=== PATIENT | male | born 1945 | race Hispanic/Latino ===

== ENCOUNTER 2018-05-01 12:11 | Emergency (ER) | payer OTHER ==
[2018-05-01] MEDS ORDERED: FENTANYL CITR 100 MCG/2 ML ONE ×3 (13:14→19:00)
--- NOTE | 2018-05-01 17:41 | RAD REPORT ---
EXAM DESCRIPTION: RAD - Pelvis - 05/01/2018 3:58 pm CLINICAL HISTORY: Slip and fall, pelvic trauma COMPARISON: September 2014 TECHNIQUE: AP imaging of the pelvis was obtained. FINDINGS: No fracture or dislocation of either proximal femur. Patient has degenerative change at ea ch hip joint that is similar to the comparison. No periarticular mass or hematoma. No fracture of the bony pelvis seen. Sacral ala are too obscured by bowel and degenerative change for assessment. Prominent lower lumbar degenerative changes similar to the prior study. IMPRESSION: Degenerative changes are present as detailed. No acute findings identifiable.
--- NOTE | 2018-05-01 17:42 | RAD REPORT ---
EXAM DESCRIPTION: RAD - Knee Right 2 View - 05/01/2018 3:58 pm CLINICAL HISTORY: Slip and fall, knee pain COMPARISON: None. FINDINGS: No fracture, dislocation or periosteal reaction.No joint effusion seen. No joint space quintin rowing. Mild degenerative spurring along the superior margin of the patella. Arterial calcifications are present. IMPRESSION: No acute bone or joint finding. Clinical concerns for internal derangement or occult bony injury could be further assessed with MR imaging.
--- NOTE | 2018-05-01 17:43 | RAD REPORT ---
EXAM DESCRIPTION: RAD - Knee Left 2 View - 05/01/2018 3:58 pm CLINICAL HISTORY: None fall, knee pain COMPARISON: None. FINDINGS: Nondisplaced, nonangulated fracture is present at the proximal fibula shaft. No pathologic component. No fracture of the tibia identifiable. Femur is intact. Degenerative changes are present in the knee joint. No joint effusion is present. No foreign body or significant soft tissue finding. Clinical concerns for internal derangement or occult bony injury could be further assessed with MR im aging. IMPRESSION: Proximal fibula fracture with no distraction or angulation deformity. No acute knee joint finding.
--- NOTE | 2018-05-01 17:44 | RAD REPORT ---
EXAM DESCRIPTION: RAD - Tib Fib Left - 05/01/2018 3:58 pm CLINICAL HISTORY: Slip and fall, leg pain COMPARISON: None. FINDINGS: Spiral fracture of the distal tibia shaft is present. No angulation deformity. There is 3 mm of lateral displacement of the distal fracture fragment. Posterior displacement is 2 mm. More prox imally the tibia is intact. Shaft and distal fibula are intact. There is a nondisplaced, nonangulated fracture of the proximal fibula. No pathologic component. No suspicious soft tissue finding. No foreign body. IMPRESSION: Spiral fracture of the distal tibia shaft. There is 3 mm lateral and 2 mm posterior disp lacement of the distal fracture fragment.
--- NOTE | 2018-05-01 17:59 | RAD REPORT ---
EXAM DESCRIPTION: RAD - Ankle Left 3 View - 05/01/2018 3:58 pm CLINICAL HISTORY: Trip and fall, ankle pain COMPARISON: None. FINDINGS: Spiral fracture of the distal tibia shaft is present. Approximately 3 mm lateral displacem ent of the distal fracture fragment is seen. There is 5-10 degrees anterior angulation of the distal fracture fragment. The ankle mortise is preserved. No distal fibula fracture. No joint effusion seen. No joint space narrowing. Small plantar spur is present. IMPRESSION: Spiral fracture of the distal tibia as detailed.
--- NOTE | 2018-05-01 18:01 | RAD REPORT ---
EXAM DESCRIPTION: RAD - Foot Left 3 View - 05/01/2018 3:58 pm CLINICAL HISTORY: Trip and fall, leg pain COMPARISON: None. FINDINGS: Moderate-sized plantar spur is present. There is minimal spurring at the Achilles attachme nt. Acute fracture of the foot is not identifiable. Distal tibia findings are separately detailed. Th e distal phalanx and a portion of the middle phalanx second toe have been resected. There is prominen t been resection of the tuft third distal phalanx. No acute finding of the phalanges. No acute metata rsal finding. No air or foreign body in the soft tissues. IMPRESSION: No acute foot finding.
--- NOTE | 2018-05-01 19:14 | ER ---
Nurse's Notes [facility] Name: Phi Cunningham Jr Age: 73 yrs Sex: Male : 1945 Arrival Date: 05/01/2018 Time: 12:14 Bed 23 Private MD: Diagnosis: Displaced comminuted fracture of shaft of left tibia;Displaced fracture of lateral malleolus of left fibula Presentation: 05/01 12:14 Presenting complaint: EMS states: Patient was taking out his trash when he slipped and aj1 fell down a ramp. Patient reports bilateral knee pain and left ankle. Leg leg is externally rotated, patient denies hip pain. Patient denies hitting head, LOC. Limited ROM noted to left ankle. Transition of care: patient was not received from another setting of care. Onset of symptoms was May 01, 2018. Risk Assessment: Do you want to hurt yourself or someone else? Patient reports no desire to harm self or others. Initial Sepsis Screen: Does the patient meet any 2 criteria? No. Patient's initial sepsis screen is negative. Does the patient have a suspected source of infection? No. Patient's initial sepsis screen is negative. Care prior to arrival: None. 12:14 Method Of Arrival: EMS: [facility] aj1 12:14 Acuity: SAUL 3 aj1 Triage Assessment: 12:18 General: Appears in no apparent distress. uncomfortable, Behavior is calm, cooperative, aj1 appropriate for age. Pain: Complains of pain in left lateral ankle, left Achilles and left medial ankle Pain currently is 10 out of 10 on a pain scale. Neuro: Level of Consciousness is awake, alert, obeys commands, Speech is normal. Cardiovascular: Patient's skin is warm and dry. Respiratory: Airway is patent Respiratory effort is even, unlabored, Respiratory pattern is regular, symmetrical. GI: No signs and/or symptoms were reported involving the gastrointestinal system. : No signs and/or symptoms were reported regarding the genitourinary system. Derm: No signs and/or symptoms reported regarding the dermatologic system. Skin is pink, warm \T\ dry. normal. Musculoskeletal: Range of motion: limited in left ankle. Historical: - Allergies: 12:18 No Known Allergies; aj1 - Home Meds: 12:18 atorvastatin 20 mg Oral tab 1 tab once daily [Active]; clonidine HCl 0.1 mg Oral tab 1 aj1 tab 2 times per day [Active]; Durezol 0.05 % ophthalmic drop 1 drop twice a day [Active]; levothyroxine 75 mcg tab 1 tab once daily [Active]; metformin 500 mg Oral tab daily [Active]; Metoprolol Tartrate Oral [Active]; Plavix 75 mg Oral tab 1 tab once daily [Active]; - PMHx: 12:18 CVA; Diabetes - IDDM; Hypertension; aj1 - Immunization history:: Flu vaccine is not up to date. - Social history:: Smoking status: Patient/guardian denies using tobacco, Patient/guardian denies using alcohol, street drugs, The patient lives with family. - Ebola Screening: : Patient denies travel to an Ebola-affected area in the 21 days before illness onset. - Family history:: not pertinent. Screenin:21 Abuse screen: Denies threats or abuse. Denies injuries from another. Nutritional aj1 screening: No deficits noted. Tuberculosis screening: No symptoms or risk factors identified. 20:12 Fall Risk None identified. rv Assessment: 12:21 Reassessment: See triage assessment. General: Appears. aj1 13:15 Reassessment: Patient appears in no apparent distress at this time. No changes from aj1 previously documented assessment. Patient and/or family updated on plan of care and expected duration. Pain level reassessed. Patient is alert, oriented x 3, equal unlabored respirations, skin warm/dry/pink. 14:32 Reassessment: Patient and/or family updated on plan of care and expected duration. Pain aj1 level reassessed. General: Appears in no apparent distress. comfortable. Neuro: Level of Consciousness is awake, alert, obeys commands. Cardiovascular: Patient's skin is warm and dry. Respiratory: Airway is patent Respiratory effort is even, unlabored, Respiratory pattern is regular, symmetrical. 16:04 Reassessment: Patient returned to room from X-Ray, states that his pain is coming back. aj1 Notified Dr. Marie, order received. 16:30 Reassessment: Patient states that his pain has improved since medications were given. aj1 17:40 Reassessment: Patient and/or family updated on plan of care and expected duration. Pain aj1 level reassessed. General: Appears in no apparent distress. comfortable. Neuro: Level of Consciousness is awake, alert, obeys commands. Cardiovascular: Patient's skin is warm and dry. Cardiovascular: Patient's skin is warm and dry. Respiratory: Airway is patent Respiratory effort is even, unlabored, Respiratory pattern is regular, symmetrical. 18:51 Reassessment: Patient appears in no apparent distress at this time. No changes from aj1 previously documented assessment. Patient and/or family updated on plan of care and expected duration. Pain level reassessed. Patient is alert, oriented x 3, equal unlabored respirations, skin warm/dry/pink. Vital Signs: 12:18 BP 181 / 80; Pulse 86; Resp 18; Temp 98.2; Pulse Ox 100% on R/A; Weight 68.04 kg (R); aj1 Height 5 ft. 3 in. (160.02 cm) (R); Pain 10/10; 13:15 BP 160 / 74; Pulse 64; Resp 16; Pulse Ox 99% on R/A; aj1 14:32 BP 175 / 84; Pulse 65; Resp 18; Pulse Ox 96% on R/A; aj1 16:05 BP 192 / 94; Pulse 76; Resp 18; Pulse Ox 95% on R/A; aj1 17:40 BP 186 / 92; Pulse 73; Resp 18; Pulse Ox 97% on R/A; aj1 18:51 BP 172 / 83; Pulse 69; Resp 18; Pulse Ox 97% on R/A; aj1 12:18 Body Mass Index 26.57 (68.04 kg, 160.02 cm) aj1 ED Course: 12:14 Patient arrived in ED. aj1 12:16 Piter Grier MD is Attending Physician. rn 12:16 Triage completed. aj1 12:18 Arm band placed on. aj1 12:19 Vaishnavi Marie MD is Attending Physician. rn 12:21 Zoë Sandoval, LOUIS is Primary Nurse. aj1 12:21 Patient has correct armband on for positive identification. Bed in low position. Call [facility] light in reach. Side rails up X 1. 12:21 No provider procedures requiring assistance completed. aj1 13:14 Inserted saline lock: 20 gauge in right antecubital area, using aseptic technique. aj1 Blood collected. 15:57 X-ray completed. Patient tolerated procedure well. Patient moved back from radiology. [facility] 15:58 Ankle Left 3 View XRAY In Process Unspecified. EDMS 15:58 Foot Left 3 View XRAY In Process Unspecified. EDMS 15:58 Tib Fib Left XRAY In Process Unspecified. EDMS 15:58 Pelvis XRAY In Process Unspecified. EDMS 15:58 Knee Right 2 View XRAY In Process Unspecified. EDMS 15:58 Knee Left 2 View XRAY In Process Unspecified. EDMS 19:12 Godfrey Ortiz MD is Referral Physician. ma2 19:45 Josh wrap to left ankle Orthoglass splint: Posterior short lleg splint applied on left jp3 leg. stirrup splint applied on left leg. 20:12 IV discontinued, bleeding controlled, No redness/swelling at site. Pressure dressing rv applied. Administered Medications: 13:14 Drug: fentaNYL (PF) 50 mcg Route: IVP; Site: right antecubital; aj1 13:45 Follow up: Response: No adverse reaction; Pain is decreased aj1 16:04 Drug: fentaNYL (PF) 50 mcg Route: IVP; Site: right antecubital; aj1 17:00 Follow up: Response: No adverse reaction; Pain is decreased aj1 18:57 Drug: fentaNYL (PF) 50 mcg Route: IVP; Site: right antecubital; aj1 Outcome: 19:13 Discharge ordered by . ma2 20:11 Discharged to home ambulatory. rv 20:11 Condition: good 20:11 Discharge instructions given to patient, Instructed on discharge instructions, follow up and referral plans. medication usage, Demonstrated understanding of instructions, follow-up care, medications, Prescriptions given X 1. 20:12 Patient left the ED. rv Signatures: Dispatcher [employer] EDMN Zoë Sandoval RN RN aj1 Nicki Dorantes 1 Piter Grier MD MD rn Alzahri, Mohammad, MD MD ma2 Antonio Hansen RN RN Dakota Jj jp3 Corrections: (The following items were deleted from the chart) 15:35 15:34 Reassessment: Patient appears in no apparent distress at this time. No changes aj1 from previously documented assessment. Patient and/or family updated on plan of care and expected duration. Pain level reassessed. Patient is alert, oriented x 3, equal unlabored respirations, skin warm/dry/pink. aj1
--- NOTE | 2018-05-01 19:14 | EDPHYS ---
Physician Documentation [facility] Name: Phi Cunningham Jr Age: 73 yrs Sex: Male : 1945 Arrival Date: 05/01/2018 Time: 12:14 Bed 23 Private MD: ED Physician Vaishnavi Marie HPI: 05/01 12:57 This 73 yrs old Male presents to ER via EMS with complaints of Ankle Injury. ma2 12:57 The patient presents with a contusion, pain. The complaints affect the left ankle. ma2 Onset: The symptoms/episode began/occurred suddenly, 2 hour(s) ago. Context: walking, tripped. Associated signs and symptoms: Pertinent negatives: calf tenderness, fever, tingling, vomiting. Severity of symptoms: At their worst the symptoms were moderate, in the emergency department the symptoms are unchanged. The patient has not experienced similar symptoms in the past. Historical: - Allergies: 12:18 No Known Allergies; aj1 - Home Meds: 12:18 atorvastatin 20 mg Oral tab 1 tab once daily [Active]; clonidine HCl 0.1 mg Oral tab 1 aj1 tab 2 times per day [Active]; Durezol 0.05 % ophthalmic drop 1 drop twice a day [Active]; levothyroxine 75 mcg tab 1 tab once daily [Active]; metformin 500 mg Oral tab daily [Active]; Metoprolol Tartrate Oral [Active]; Plavix 75 mg Oral tab 1 tab once daily [Active]; - PMHx: 12:18 CVA; Diabetes - IDDM; Hypertension; aj1 - Immunization history:: Flu vaccine is not up to date. - Social history:: Smoking status: Patient/guardian denies using tobacco, Patient/guardian denies using alcohol, street drugs, The patient lives with family. - Ebola Screening: : Patient denies travel to an Ebola-affected area in the 21 days before illness onset. - Family history:: not pertinent. ROS: 12:57 Constitutional: Negative for fever, chills, and weight loss, Eyes: Negative for injury, ma2 pain, redness, and discharge, ENT: Negative for injury, pain, and discharge, Neck: Negative for injury, pain, and swelling, Cardiovascular: Negative for chest pain, palpitations, and edema, Respiratory: Negative for shortness of breath, cough, wheezing, and pleuritic chest pain. 12:57 MS/extremity: Positive for bilateral knee and right ankle pain , Negative for abrasion, laceration. 12:57 All other systems are negative. Exam: 12:57 Constitutional: This is a well developed, well nourished patient who is awake, alert, ma2 and in no acute distress. Head/Face: Normocephalic, atraumatic. Chest/axilla: Normal chest wall appearance and motion. Nontender with no deformity. No lesions are appreciated. Cardiovascular: Regular rate and rhythm with a normal S1 and S2. No gallops, murmurs, or rubs. Normal PMI, no JVD. No pulse deficits. Respiratory: Lungs have equal breath sounds bilaterally, clear to auscultation and percussion. No rales, rhonchi or wheezes noted. No increased work of breathing, no retractions or nasal flaring. 12:57 Musculoskeletal/extremity: left ankle deformity and tenderness, sensation intact w palpable dp and pt . Vital Signs: 12:18 BP 181 / 80; Pulse 86; Resp 18; Temp 98.2; Pulse Ox 100% on R/A; Weight 68.04 kg (R); aj1 Height 5 ft. 3 in. (160.02 cm) (R); Pain 10/10; 13:15 BP 160 / 74; Pulse 64; Resp 16; Pulse Ox 99% on R/A; aj1 14:32 BP 175 / 84; Pulse 65; Resp 18; Pulse Ox 96% on R/A; aj1 16:05 BP 192 / 94; Pulse 76; Resp 18; Pulse Ox 95% on R/A; aj1 17:40 BP 186 / 92; Pulse 73; Resp 18; Pulse Ox 97% on R/A; aj1 18:51 BP 172 / 83; Pulse 69; Resp 18; Pulse Ox 97% on R/A; aj1 12:18 Body Mass Index 26.57 (68.04 kg, 160.02 cm) aj MDM: 12:16 Patient medically screened. rn 12:57 Differential diagnosis: fracture, sprain, arthritis, gout, cellulitis. ma2 19:11 Data reviewed: vital signs, nurses notes, EMS record, lab test result(s), radiologic ma2 studies. Counseling: I had a detailed discussion with the patient and/or guardian regarding: the historical points, exam findings, and any diagnostic results supporting the discharge/admit diagnosis, the presence of at least one elevated blood pressure reading (>120/80) during this emergency department visit, the need for outpatient follow up. Medical screen evaluation completed. [facility] emergency medical condition absent. Response to treatment: the patient's symptoms have mildly improved after treatment, the patient's symptoms have markedly improved after treatment. ED course: discussed with dr. dobbins and he recommend splint and outpatient f/u. 05/01 12:53 Order name: Ankle Left 3 View XRAY; Complete Time: 18:26 ma2 05/01 12:53 Order name: Foot Left 3 View XRAY; Complete Time: 18:26 ma2 05/01 12:53 Order name: Tib Fib Left XRAY; Complete Time: 18:26 ma2 05/01 12:53 Order name: Pelvis XRAY; Complete Time: 18:26 ma2 05/01 12:59 Order name: Knee Right 2 View XRAY; Complete Time: 18:26 ma2 05/01 12:59 Order name: Knee Left 2 View XRAY; Complete Time: 18:26 ma2 05/01 18:34 Order name: Splint - Long Leg: Posterior w/ Stirrup; Complete Time: 19:57 ma2 Administered Medications: 13:14 Drug: fentaNYL (PF) 50 mcg Route: IVP; Site: right antecubital; aj1 13:45 Follow up: Response: No adverse reaction; Pain is decreased aj1 16:04 Drug: fentaNYL (PF) 50 mcg Route: IVP; Site: right antecubital; aj1 17:00 Follow up: Response: No adverse reaction; Pain is decreased aj1 18:57 Drug: fentaNYL (PF) 50 mcg Route: IVP; Site: right antecubital; aj1 Disposition: 05/01/18 19:13 Discharged to Home. Impression: Displaced comminuted fracture of shaft of left tibia, Displaced fracture of lateral malleolus of left fibula. - Condition is Stable. - Discharge Instructions: Tibial and Fibular Fracture, Adult. - Prescriptions for Tylenol- Codeine #3 300-30 mg Oral Tablet - take 2 tablet by ORAL route every 6 hours As needed; 6 tablet. - Medication Reconciliation Form, Thank You Letter, Antibiotic Education, Prescription Opioid Use form. - Follow up: Godfrey Dobbins MD; When: Tomorrow; Reason: Continuance of care. - Problem is new. - Symptoms are unchanged. - Notes: No weigth bearing on left leg Signatures: Dispatcher [employer] EDZoë Romano RN RN aj1 Piter Grier MD MD rn Alzahri, Mohammad, MD MD ma2 Antonio Hansen RN RN rv Corrections: (The following items were deleted from the chart) 20:12 19:13 05/01/2018 19:13 Discharged to Home. Impression: Displaced comminuted fracture of rv shaft of left tibia; Displaced fracture of lateral malleolus of left fibula. Condition is Stable. Forms are Medication Reconciliation Form, Thank You Letter, Antibiotic Education, Prescription Opioid Use. Follow up: Dr. Godfrey Dobbins; When: Tomorrow; Reason: Continuance of care. Problem is new. Symptoms are unchanged. ma2
[2018-05-01 21:13] VITALS: TEMP 98.2
[2018-05-01 21:17] VITALS: O2SAT 97
[2018-05-01 21:19] VITALS: BP 172/83
== END 2018-05-01 20:12 | disposition home or self-care (01) ==
LOC: ER 12:11
PROC: 2W3MX1Z Immobilization of Left Lower Extremity using Splint (ICD-10-PCS; principal; 2018-05-01)
DX: S82.252A Displaced comminuted fracture of shaft of left tibia, initial encounter for closed fracture (principal); S82.62XA Displaced fracture of lateral malleolus of left fibula, initial encounter for closed fracture; W01.0XXA Fall on same level from slipping, tripping and stumbling without subsequent striking against object, initial encounter; Y93.01 Activity, walking, marching and hiking; Y92.9 Unspecified place or not applicable; I10 Essential (primary) hypertension; E11.9 Type 2 diabetes mellitus without complications; Z79.01 Long term (current) use of anticoagulants
CPT/HCPCS: 29505; 72170; 73560 ×2; 73590; 73610; 73630; 96374; 99284; J3010 ×3

== ENCOUNTER 2019-09-26 17:54 | Emergency (ER) | payer OTHER ==
--- OUTSIDE RECORDS SUMMARY | 2019-09-26 17:55 | XMS REPORT ---
:1945 Author Organization [employer] Care Team Providers Name Role Phone Godfrey Ortiz Provider Role Unavailable Allergies No Known Allergies Problems No Known Problems Medications No Known Medications Results No Known Results Summary Purpose [employer] Submission
--- OUTSIDE RECORDS SUMMARY | 2019-09-26 17:56 | XMS REPORT ---
:1945 Author Organization [employer] Care Team Providers Name Role Phone Ortiz Godfrey Provider Role Unavailable Allergies, Adverse Reactions, Alerts Substance Reaction Event Type N.K.D.A. Info Not Available Non Drug Allergy Problems Problem Type Condition Code Onset Dates Condition Status Assessment Pain in left lower leg M79.662 Active Assessment Pain in left tibia M89.8X6 Active Assessment Closed displaced spiral fracture S82.242D Active of shaft of left tibia with routine healing Assessment Delayed union of closed fracture S82.202G Active of shaft of left tibia Medications Medication Code Code Instructions Start End Status Dosage System Date Date Lisinopril [facility] 71585269527 20 MG Oral Active TK 1 T PO D Metoprolol [facility] 85414085791 50 MG Oral Active TK 1 T PO Tartrate BID Clopidogrel ND 41257277683 75 MG Oral Active TK 1 T PO Bisulfate QD Metformin HCl ND 93562248823 500 MG Oral Active TK 1 T PO BID Furosemide ND 02527788200 40 MG Oral Active TK 1 T PO QAM Clonidine HCl ND 19083487086 0.1 MG Orally Active 1 tablet Once a day at bedtime Levothyroxine ND 70774693392 75 MCG Oral Active TK 1 T PO Sodium D Atorvastatin ND 78941717678 40 MG Oral Active TK 1 T PO Calcium QHS Acetaminophen-Cod ND 07111230435 300-30 MG Oral Active (Schedule eine #3 III Drug) TK 2 T PO Q 6 H PRF PAIN CONTROL Results No Known Results Summary Purpose [employer]Works Submission
--- OUTSIDE RECORDS SUMMARY | 2019-09-26 17:56 | XMS REPORT ---
:1945 Author Organization [employer] Care Team Providers Name Role Phone Godfrey Ortiz Provider Role Unavailable Allergies, Adverse Reactions, Alerts Substance Reaction Event Type N.K.D.A. Info Not Available Non Drug Allergy Problems Problem Type Condition Code Onset Dates Condition Status Assessment Pain in left lower leg M79.662 Active Assessment Pain in left tibia M89.8X6 Active Assessment Delayed union of closed fracture S82.202G Active of shaft of left tibia Medications Medication Code Code Instructions Start End Status Dosage System Date Date Levothyroxine [facility] 45972406898 75 MCG Oral Active TK 1 T PO Sodium D Acetaminophen-Cod [facility] 93724939197 300-30 MG Oral Active (Schedule eine #3 III Drug) TK 2 T PO Q 6 H PRF PAIN CONTROL Clopidogrel [facility] 61489038421 75 MG Oral Active TK 1 T PO Bisulfate QD Furosemide [facility] 04926003234 40 MG Oral Active TK 1 T PO QAM Lisinopril [facility] 61873242430 20 MG Oral Active TK 1 T PO D Metoprolol [facility] 44958980730 50 MG Oral Active TK 1 T PO Tartrate BID Atorvastatin [facility] 65215232888 40 MG Oral Active TK 1 T PO Calcium QHS Clonidine HCl [facility] 17675850568 0.1 MG Orally Active 1 tablet Once a day at bedtime Metformin HCl [facility] 61792212212 500 MG Oral Active TK 1 T PO BID Results Name Result Date Reference Range Unit Abnormality Flag Ultrasound : Artery Doppler Low Ext Bilat Summary Purpose eClinicalWorks Submission
[2019-09-26] MEDS ORDERED: ALBUTEROL 2.5 MG/3 ML NEB SOL ONE (19:07)
[2019-09-26] MEDS ORDERED: HYDROCODONE/CHLORPHEN 5 ML/OSYR ONE (19:07)
--- NOTE | 2019-09-26 19:15 | RAD REPORT ---
EXAM DESCRIPTION: Malorie Hester (2 Views)09/26/2019 6:58 pm CLINICAL HISTORY: cough COMPARISON: 2017 FINDINGS: The lungs appear clear of acute infiltrate. The heart is mildly enlarged. Postsurgical changes involve the chest. IMPRESSION: No acute abnormalities displayed
--- NOTE | 2019-09-26 20:03 | EDPHYS ---
Physician Documentation [facility] Name: Phi Cunningham Jr Age: 74 yrs Sex: Male : 1945 Arrival Date: 09/26/2019 Time: 17:56 Bed 27 Private MD: ED Physician Darrell Esqueda HPI: 09/26 20:00 This 74 yrs old Male presents to ER via Ambulatory with complaints of Cough, snw Congestion, Headache. 20:00 The patient or guardian reports cough, described as moderate, described as severe, with snw productive sputum, that is yellow. Onset: The symptoms/episode began/occurred suddenly, 4 day(s) ago, and became persistent. Severity of symptoms: At their worst the symptoms were moderate. Associated signs and symptoms: Pertinent negatives: chest pain, fever, sore throat. It is unknown whether or not the patient has had similar symptoms in the past. It is unknown whether or not the patient has recently seen a physician. SpO2 100% on RA, no confusion, FSBS 116mg/dl. Historical: - Allergies: 18:23 No Known Drug Allergies; tw2 - Home Meds: 18:23 atorvastatin 40 mg oral tab 1 tab once daily [Active]; metformin 500 mg Oral tab 2 tw2 times per day [Active]; metoprolol tartrate 50 mg oral tab 1 tab once daily [Active]; levothyroxine 75 mcg tab 1 tab once daily [Active]; Plavix 75 mg Oral tab 1 tab once daily [Active]; furosemide 40 mg Oral tab 1 tab once daily [Active]; lisinopril 20 mg Oral tab 1 tab once daily [Active]; clonidine HCl 0.1 mg Oral tab 1 tab 2 times per day [Active]; - PMHx: 18:23 CVA; Diabetes - IDDM; Hypertension; Hyperlipidemia; tw2 - PSHx: 18:23 cataracts; cardiac bypass; tw2 - Immunization history:: Adult Immunizations. - Coronavirus screen:: The patient has NOT traveled to [place] in the past 14 days. - Social history:: Smoking status: . - Ebola Screening: : Patient denies travel to an Ebola-affected area in the 21 days before illness onset. ROS: 19:21 Constitutional: Negative for fever, chills, and weight loss, Eyes: Negative for injury, snw pain, redness, and discharge. 19:21 Neck: Negative for injury, pain, and swelling, Cardiovascular: Negative for chest pain, palpitations, and edema. 19:21 Abdomen/GI: Negative for abdominal pain, nausea, vomiting, diarrhea, and constipation, Back: Negative for injury and pain, : Negative for injury, bleeding, discharge, and swelling, MS/Extremity: Negative for injury and deformity, Skin: Negative for injury, rash, and discoloration. 19:21 ENT: Positive for nasal discharge. 19:21 Respiratory: Positive for cough, with no reported sputum. 19:21 Neuro: Positive for dizziness. Exam: 19:19 Head/Face: Normocephalic, atraumatic. snw 19:19 Neck: Trachea midline, no thyromegaly or masses palpated, and no cervical lymphadenopathy. Supple, full range of motion without nuchal rigidity, or vertebral point tenderness. No Meningismus. Chest/axilla: Normal chest wall appearance and motion. Nontender with no deformity. No lesions are appreciated. Cardiovascular: Regular rate and rhythm with a normal S1 and S2. No gallops, murmurs, or rubs. Normal PMI, no JVD. No pulse deficits. 19:19 Abdomen/GI: Soft, non-tender, with normal bowel sounds. No distension or tympany. No guarding or rebound. No evidence of tenderness throughout. Back: No spinal tenderness. No costovertebral tenderness. Full range of motion. Skin: Warm, dry with normal turgor. Normal color with no rashes, no lesions, and no evidence of cellulitis. MS/ Extremity: Pulses equal, no cyanosis. Neurovascular intact. Full, normal range of motion. Neuro: Awake and alert, GCS 15, oriented to person, place, time, and situation. Cranial nerves II-XII grossly intact. Motor strength 5/5 in all extremities. Sensory grossly intact. Cerebellar exam normal. Normal gait. Psych: Awake, alert, with orientation to person, place and time. Behavior, mood, and affect are within normal limits. 19:19 Constitutional: The patient appears alert, awake, frail, uncomfortable. 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 19:19 ENT: Nose: Nasal mucosa: edematous, nasal drainage, that is moderate, and is seen coming from both nares, that is clear, Mouth: is normal, Posterior pharynx: is normal. 19:19 Respiratory: the patient does not display signs of respiratory distress, Respirations: shallow respirations, Breath sounds: + upper airway congestion. bronchitic cough. 19:59 Special observations: cough productive of yellow sputum. snw Vital Signs: 18:23 BP 108 / 63; Pulse 69; Resp 17; Temp 98.5(TE); Pulse Ox 100% on R/A; Weight 68.04 kg tw2 (R); Height 5 ft. 3 in. (160.02 cm); Pain 5/10; 19:30 BP 102 / 64; Pulse 70; Resp 18; Pulse Ox 98% on R/A; vc 20:00 BP 107 / 58; Pulse 73; Resp 18; Pulse Ox 98% on R/A; vc 18:23 Body Mass Index 26.57 (68.04 kg, 160.02 cm) tw2 MDM: 18:51 Patient medically screened. snw 20:04 Data reviewed: vital signs, nurses notes. Data interpreted: Pulse oximetry: on room air snw is 100 %. Interpretation: normal. Counseling: I had a detailed discussion with the patient and/or guardian regarding: the historical points, exam findings, and any diagnostic results supporting the discharge/admit diagnosis, lab results, radiology results, the need for outpatient follow up, to return to the emergency department if symptoms worsen or persist or if there are any questions or concerns that arise at home. Response to treatment: the patient's symptoms have mildly improved after treatment. Special discussion: Based on the history and exam findings, there is no indication for further emergent testing or inpatient evaluation. I discussed with the patient/guardian the need to see the primary care provider for further evaluation of the symptoms. 21:04 Response to treatment: the patient's symptoms have markedly improved after treatment, snw pt states he feels so much better he is going out to eat now. 09/26 18:38 Order name: Flu; Complete Time: 19:28 snw 09/26 18:59 Order name: Glucose, Ancillary Testing; Complete Time: 18:59 EDMS 09/26 18:34 Order name: Chest Pa And Lat (2 Views) XRAY; Complete Time: 19:22 snw 09/26 18:38 Order name: FSBS; Complete Time: 18:48 snw Administered Medications: 19:03 Drug: Albuterol 2.5 mg Route: Inhalation; vc 19:03 Drug: Tussionex Pennkinetic ER 5 ml Route: PO; vc 19:30 Follow up: Response: No adverse reaction; Marked relief of symptoms vc 20:25 Drug: Rocephin (cefTRIAXone) 1 grams Route: IM; Site: right ventrogluteal; vc 20:42 Follow up: Response: No adverse reaction vc 20:26 Drug: Zithromax 500 mg Route: PO; vc 20:41 Follow up: Response: No adverse reaction vc Disposition: 09/27 08:32 Co-signature as Attending Physician, Darrell Esqueda MD I agree with the assessment and kdr plan of care. Disposition: 09/26/19 20:02 Discharged to Home. Impression: Acute bronchitis, Pneumonia, unspecified organism. - Condition is Stable. - Discharge Instructions: Acute Bronchitis, Adult, Community-Acquired Pneumonia, Adult, Cough, Adult, Rehydration, Elderly. - Prescriptions for Tessalon Perles 100 mg Oral Capsule - take 1 capsule by ORAL route every 8 hours As needed; 15 capsule. Zithromax 500 mg Oral Tablet - take 1 tablet by ORAL route once daily for 5 days; 5 tablet. Albuterol Sulfate 90 mcg/actuation - inhale 1-2 puff by INHALATION route every 4-6 hours; 1 Inhaler. promethazine 25 mg Oral Tablet - take 1 tablet by ORAL route every 6 hours As needed; 20 tablet. - Medication Reconciliation Form, Thank You Letter, Antibiotic Education, Prescription Opioid Use form. - Follow up: Emergency Department; When: As needed; Reason: Worsening of condition. Follow up: Private Physician; When: 1 - 2 days; Reason: Recheck today's complaints, Continuance of care, Re-evaluation by your physician. Signatures: Dispatcher [employer] EDCT Darrell Esqueda MD MD kdr Therrien, Shelly, ROUND UP RING HAND-C ROUND UP RING HAND-Mami Madden RN RN tw2 April Anderson RN RN vc Corrections: (The following items were deleted from the chart) 09/26 20:42 20:02 09/26/2019 20:02 Discharged to Home. Impression: Acute bronchitis; Pneumonia, vc unspecified organism. Condition is Stable. Forms are Medication Reconciliation Form, Thank You Letter, Antibiotic Education, Prescription Opioid Use. Follow up: Emergency Department; When: As needed; Reason: Worsening of condition. Follow up: Private Physician; When: 1 - 2 days; Reason: Recheck today's complaints, Continuance of care, Re-evaluation by your physician. snw
--- NOTE | 2019-09-26 20:03 | ER ---
Nurse's Notes [facility] Name: Phi Cunningham Jr Age: 74 yrs Sex: Male : 1945 Arrival Date: 09/26/2019 Time: 17:56 Bed 27 Private MD: Diagnosis: Acute bronchitis;Pneumonia, unspecified organism Presentation: 09/26 18:16 Presenting complaint: Patient states: i have been sick for 4 days back, well since last tw2 week, i thought i would get over it, i am coughing and congestion but nothing is coming up, when i cough a lot the back of my head hurts and i get a headache, my shoulders hurt and i feel nilesh dizzy at times when i cough. Transition of care: patient was not received from another setting of care. Onset of symptoms was September 26, 2019. Risk Assessment: Do you want to hurt yourself or someone else? Patient reports no desire to harm self or others. Initial Sepsis Screen: Does the patient meet any 2 criteria? No. Patient's initial sepsis screen is negative. Does the patient have a suspected source of infection? No. Patient's initial sepsis screen is negative. Care prior to arrival: None. 18:16 Method Of Arrival: Ambulatory tw2 18:16 Acuity: SAUL 3 tw2 Triage Assessment: 18:18 General: Appears in no apparent distress. slender, Behavior is calm, cooperative, tw2 appropriate for age. Pain: Complains of pain in back. EENT: Reports nasal congestion nasal discharge. Respiratory: Reports cough that is non-productive, hacking, persistent. Historical: - Allergies: 18:23 No Known Drug Allergies; tw2 - Home Meds: 18:23 atorvastatin 40 mg oral tab 1 tab once daily [Active]; metformin 500 mg Oral tab 2 tw2 times per day [Active]; metoprolol tartrate 50 mg oral tab 1 tab once daily [Active]; levothyroxine 75 mcg tab 1 tab once daily [Active]; Plavix 75 mg Oral tab 1 tab once daily [Active]; furosemide 40 mg Oral tab 1 tab once daily [Active]; lisinopril 20 mg Oral tab 1 tab once daily [Active]; clonidine HCl 0.1 mg Oral tab 1 tab 2 times per day [Active]; - PMHx: 18:23 CVA; Diabetes - IDDM; Hypertension; Hyperlipidemia; tw2 - PSHx: 18:23 cataracts; cardiac bypass; tw2 - Immunization history:: Adult Immunizations. - Coronavirus screen:: The patient has NOT traveled to [place] in the past 14 days. - Social history:: Smoking status: . - Ebola Screening: : Patient denies travel to an Ebola-affected area in the 21 days before illness onset. Screenin:30 Abuse screen: Denies threats or abuse. Nutritional screening: No deficits noted. vc Tuberculosis screening: No symptoms or risk factors identified. Fall Risk None identified. Assessment: 18:30 General: Appears in no apparent distress. uncomfortable, ill, Behavior is calm, vc cooperative, appropriate for age. Pain: Complains of pain in back. Neuro: Level of Consciousness is awake, alert, obeys commands. Cardiovascular: Patient's skin is warm and dry. Respiratory: Reports cough that is non-productive, pain with cough Airway is patent Respiratory effort is even, unlabored, Respiratory pattern is regular, symmetrical. GI: No signs and/or symptoms were reported involving the gastrointestinal system. : No signs and/or symptoms were reported regarding the genitourinary system. EENT: Eyes blind in left eye. Derm: Skin temperature is warm. Musculoskeletal: Circulation, motion, and sensation intact. Range of motion: intact in all extremities. 19:30 Reassessment: Patient and/or family updated on plan of care and expected duration. Pain vc level reassessed. 20:12 Reassessment: Patient and/or family updated on plan of care and expected duration. Pain vc level reassessed. Patient is alert, oriented x 3, equal unlabored respirations, skin warm/dry/pink. Patient states feeling better. Patient states symptoms have improved. Vital Signs: 18:23 BP 108 / 63; Pulse 69; Resp 17; Temp 98.5(TE); Pulse Ox 100% on R/A; Weight 68.04 kg tw2 (R); Height 5 ft. 3 in. (160.02 cm); Pain 5/10; 19:30 BP 102 / 64; Pulse 70; Resp 18; Pulse Ox 98% on R/A; vc 20:00 BP 107 / 58; Pulse 73; Resp 18; Pulse Ox 98% on R/A; vc 18:23 Body Mass Index 26.57 (68.04 kg, 160.02 cm) tw2 ED Course: 17:56 Patient arrived in ED. as 18:18 Triage completed. tw2 18:18 Arm band placed on. tw2 18:30 Patient has correct armband on for positive identification. Bed in low position. Call vc light in reach. Side rails up X 1. 18:33 Kassy Mcarthur FNP-C is [facility]. snw 18:33 Darrell Esqueda MD is Attending Physician. snw 18:48 Flu Sent. lt1 18:58 April Anderson, RN is Primary Nurse. vc 19:13 Chest Pa And Lat (2 Views) XRAY In Process Unspecified. EDMS 20:12 No provider procedures requiring assistance completed. Patient did not have IV access vc during this emergency room visit. Administered Medications: 19:03 Drug: Albuterol 2.5 mg Route: Inhalation; vc 19:03 Drug: Tussionex Pennkinetic ER 5 ml Route: PO; vc 19:30 Follow up: Response: No adverse reaction; Marked relief of symptoms vc 20:25 Drug: Rocephin (cefTRIAXone) 1 grams Route: IM; Site: right ventrogluteal; vc 20:42 Follow up: Response: No adverse reaction vc 20:26 Drug: Zithromax 500 mg Route: PO; vc 20:41 Follow up: Response: No adverse reaction vc Outcome: 20:02 Discharge ordered by . snw 20:40 Discharged to home ambulatory with walker and friend vc 20:40 Condition: improved 20:40 Discharge instructions given to patient, Instructed on discharge instructions, follow up and referral plans. medication usage, Demonstrated understanding of instructions, follow-up care, medications, Prescriptions given X 4. 20:42 Patient left the ED. vc Signatures: Dispatcher [employer] EDMS Kassy Mcarthur FNP-C FAMILY NURSE-Tanna Abreu Tara, RN RN tw2 Pastor Jennifer lt1 April Anderson, LOUIS RN vc
[2019-09-26] MEDS ORDERED: LIDOCAINE 1% MPF 5 ML VIAL ONE (20:22)
[2019-09-26] MEDS ORDERED: AZITHROMYCIN 250 MG TAB ONE (20:22)
[2019-09-26] MEDS ORDERED: CEFTRIAXONE 1000 MG/VIAL ONE (20:23)
[2019-09-26 20:46] VITALS: TEMP 98.5
[2019-09-26 20:48] VITALS: O2SAT 98
[2019-09-26 20:49] VITALS: BP 107/58
== END 2019-09-26 20:42 | disposition home or self-care (01) ==
LOC: ER 17:54
DX: J18.9 Pneumonia, unspecified organism (principal); J20.9 Acute bronchitis, unspecified; I10 Essential (primary) hypertension; E11.9 Type 2 diabetes mellitus without complications; E78.5 Hyperlipidemia, unspecified; Z79.01 Long term (current) use of anticoagulants
CPT/HCPCS: 71046; 82947; 87804; 96372; 99284

== ENCOUNTER 2021-11-02 14:55 | Emergency (ER) | payer OTHER ==
--- OUTSIDE RECORDS SUMMARY | 2021-11-02 14:58 | XMS REPORT | Continuity of Care Document ---
:1945 Author Organization [facility] t Address [address] [place] [address] Care Team Providers Name Role Phone Unavailable Unavailable Unavailable Problems This patient has no known problems. Allergies, Adverse Reactions, Alerts This patient has no known allergies or adverse reactions. Medications Ordered Filled Start Stop Current Ordering Indication Dosage Frequency Signature Comments Components Source Medication Medication Date Date Medication? Clinician (SIG) Name Name Levothyroxi Levothyroxi Yes Godfrey TK [address] [facility] ne Sodium ne Sodium [facility] D [facility] Clonidine Clonidine Yes Godfrey [address] [facility] HCl HCl [facility] at bedtime [facility] Metoprolol Metoprolol Yes Godfrey TK [address] [facility] Tartrate Tartrate [facility] BID [facility] Metformin Metformin Yes Godfrey TK [address] [facility] HCl HCl [facility] BID [facility] Lisinopril Lisinopril Yes Godfrey TK [address] [facility]iz D [facility] Atorvastati Atorvastati Yes Godfrey TK [address] [facility] n Calcium n Calcium [facility] QHS [facility] Clopidogrel Clopidogrel Yes Godfrey TK [address] [facility] Bisulfate Bisulfate [facility] QD [facility] Acetaminoph Acetaminoph Yes Godfrey (Schedule [facility] en-Codeine en-Codeine [facility] III Drug) Kaveh - #3 #3 TK 2 T PO [facility] 6 [facility] Furosemide Furosemide Yes Godfrey SMITH [address] [facility] QAM [facility] Procedures This patient has no known procedures. Encounters Start End Encounter Admission Attending Care Care Encounter Source Date/Time Date/Time Type Type Clinicians Facility Department ID 2019-06-22 2019-06-22 Outpatient [facility] [id number] [facility] 11:04[facility] 11[facility]04[facility] 2018-11-22 2018-11-22 [facility] [id number] [facility] 11[facility]13:00 11:13:00 [facility] 2018-11-20 2018-11-20 [facility] [id number] [facility] 10:30:00 10:30:00 [facility] 2018-10-02 2018-10-02 [facility] [id number] [facility] 10:20:00 10:20:00 [facility] 2018-10-01 2018-10-01 [facility] [id number] [facility] 20:50:00 20:50:00 [facility] 2018-09-26 2018-09-26 [facility] [id number] [facility] 10:00:00 10:00:00 [facility] 2018-09-24 2018-09-24 [facility] [id number] [facility] 21:26:00 21:26:00 [facility] 2018-09-18 2018-09-18 [facility] [id number] [facility] 09:48:00 09:48:00 [facility] 2018-09-11 2018-09-11 [facility] [id number] [facility] 15:18:00 15:18:00 [facility] 2018-09-11 2018-09-11 Outpatient [facility] [id number] [facility] 11:00:00 11:00:00 [facility] 2018-07-31 2018-07-31 Outpatient [facility] [id number] [facility] 11:00:00 11:00:00 [facility] 2018-07-17 2018-07-17 Outpatient [facility] [id number] [facility] 14:09:00 14:09:00 [facility] 2018-05-11 2018-05-11 Outpatient [facility] [id number] [facility] 17:06:00 17:06:00 [facility] 2018-05-11 2018-05-11 Outpatient [facility] [id number] [facility] 13[facility]30:00 13:30:00 [facility] Results This patient has no known results.
--- NOTE | 2021-11-02 16:21 | RAD REPORT ---
EXAM DESCRIPTION: CT - Head C Spine Cap Wo Con - 11/02/2021 3:57 pm TECHNIQUE: Computed axial tomography of the head and cervical spine was obtained. Coronal and sagitt al reconstruction was performed Computed axial tomography of the chest, abdomen and pelvis was obtained. Contrast was not requested. All CT scans are performed using dose optimization technique as appropriate and may include automated exposure control or mA/KV adjustment according to patient size. CLINICAL HISTORY: Head and neck injury with chest and abdominal pain status post fall COMPARISON: CT 2014 FINDINGS: An intracranial bleed is not seen. The ventricles are normal in caliber. An extra-axial fluid collection is not noted. . Fluid within the sinuses/mastoids is not seen. A cervical fracture is not seen. No dislocation is noted. The evaluation of mediastinum, dori, vessels, solid organs and bowel are limited secondary to the lac k of contrast administration. A mediastinal hematoma is not noted. A pleural effusion is not seen. A lung contusion is not present. Anterior subluxation right head The liver,spleen, pancreas, adrenals,kidneys and bladder do not demonstrate intrahepatic injury Spondylosis cervical and lumbar spine. . IMPRESSION: 1. No acute intracranial abnormality is seen. 2. A cervical fracture is not visualized. If the patient continues have symptoms to suggest intracran ial/spinal cord pathology MRI be recommended 3. No traumatic abnormality involving the abdomen/pelvis 4. Anterior subluxation right humeral head
[2021-11-02] MEDS ORDERED: ACETAMINOPHEN 500 MG TAB ONE (17:17)
--- NOTE | 2021-11-02 17:55 | ER ---
Nurse's Notes [facility] Name: Phi Cunningham Jr Age: 76 yrs Sex: Male : 1945 Arrival Date: 11/02/2021 Time: 14:59 Bed 28 Private MD: Diagnosis: Fall on same level, unspecified;Laceration without foreign body of scalp Presentation: 11/02 15:03 Chief complaint: EMS states: pt fell at home, hit head on table, small lac to top left iw head, states he is on blood thinners but does not know which one, denies LOC, is A\T\OX4. Care prior to arrival: Bleeding of injury controlled. Mechanism of Injury: Fall from standing position. Trauma event details: Injury occurred in the [facility], Injury occurred: at home. 15:03 Acuity: SAUL 3 iw 15:03 Method Of Arrival: EMS: [facility] iw 15:06 Coronavirus screen: At this time, the client does not indicate any symptoms associated iw with coronavirus-19. Ebola Screen: Patient negative for fever greater than or equal to 101.5 degrees Fahrenheit, and additional compatible Ebola Virus Disease symptoms Patient denies exposure to infectious person. Patient denies travel to an Ebola-affected area in the 21 days before illness onset. No symptoms or risks identified at this time. Initial Sepsis Screen: Does the patient meet any 2 criteria? No. Patient's initial sepsis screen is negative. Does the patient have a suspected source of infection? No. Patient's initial sepsis screen is negative. Risk Assessment: Do you want to hurt yourself or someone else?. Onset of symptoms was November 02, 2021. Trauma Activation: Alert Physician: ED Physician; Name: ; Notified At: ; Arrived At: Physician: General Surgeon; Name: ; Notified At: ; Arrived At: Physician: Radiology; Name: ; Notified At: ; Arrived At: Physician: Respiratory; Name: ; Notified At: ; Arrived At: Physician: Lab; Name: ; Notified At: ; Arrived At: Historical: - Home Meds: 15:05 atorvastatin 40 mg Oral tab 1 tab once daily [Active]; clonidine HCl 0.1 mg Oral tab 1 iw tab 2 times per day [Active]; furosemide 40 mg Oral tab 1 tab once daily [Active]; levothyroxine 75 mcg tab 1 tab once daily [Active]; lisinopril 20 mg Oral tab 1 tab once daily [Active]; metformin 500 mg Oral tab 2 times per day [Active]; metoprolol tartrate 50 mg Oral tab 1 tab once daily [Active]; Plavix 75 mg Oral tab 1 tab once daily [Active]; - PMHx: 15:05 CVA; Diabetes - IDDM; Hyperlipidemia; Hypertension; iw - Immunization history:: Adult Immunizations unknown. - Social history:: Smoking status: unknown. Screenin:06 Abuse screen: Denies threats or abuse. Denies injuries from another. Tuberculosis iw screening: No symptoms or risk factors identified. 17:53 Nutritional screening: No deficits noted. Fall Risk Fall in past 12 months (25 points). ab2 Fall Risk Secondary diagnosis (15 points) IV access (20 points). Ambulatory Aid- None/Bed Rest/Nurse Assist (0 pts). Gait- Weak (10 pts.). Mental Status- Oriented to own ability (0 pts). Total Chacko Fall Scale indicates High Risk Score (45 or more points). Fall prevention measures have been instituted. Placed Close to Nursing Station Frequent Obs/Assessments Occuring As available patient and family educated on Fall Prevention Program and Strategies. Primary Survey: 17:51 NO uncontrolled hemorrhage observed. Breathing/Chest: Respiratory pattern: regular, ab2 Respiratory effort: spontaneous, unlabored, Breath sounds: clear. Circulation: Cardiac rhythm: sinus rhythm. Disability Alert. Exposure/Environment: There is no evidence of uncontrolled external bleeding. 17:53 Reassessment Airway Airway Patent Breathing/Chest Respiratory pattern Regular ab2 Respiratory effort Spontaneous Unlabored Breath sounds Clear Chest inspection Symmetrical. Assessment: 15:04 General: Appears in no apparent distress. Behavior is calm, cooperative. iw 17:50 General: Appears in no apparent distress. Behavior is calm, cooperative. Pain: ab2 Complains of pain in left frontal area Pain currently is 6 out of 10 on a pain scale. Neuro: Level of Consciousness is awake, alert, obeys commands, Oriented to person, place, situation, Appropriate for age Study Coordinator are equal bilaterally Moves all extremities. Speech is normal. Cardiovascular: No deficits noted. Denies chest pain, shortness of breath, Heart tones S1 S2 present Patient's skin is warm and dry. Respiratory: No deficits noted. Airway is patent Respiratory effort is even, unlabored, Respiratory pattern is regular, symmetrical, Breath sounds are clear. GI: No deficits noted. No signs and/or symptoms were reported involving the gastrointestinal system. Abdomen is round non-distended. : No deficits noted. No signs and/or symptoms were reported regarding the genitourinary system. EENT: No deficits noted. No signs and/or symptoms were reported regarding the EENT system. Derm: Wound noted left frontal area. Musculoskeletal: No deficits noted. Vital Signs: 15:18 BP 115 / 54; Pulse 73; Resp 16; Temp 98.4(O); Pulse Ox 99% on R/A; Weight 70.31 kg; mh5 Height 5 ft. 6 in. (167.64 cm); Pain 5/10; 17:57 BP 156 / 82; Pulse 68; Resp 17; Pulse Ox 99% on R/A; ab2 15:18 Body Mass Index 25.02 (70.31 kg, 167.64 cm) mh5 Rosalva Coma Score: 17:52 Eye Response: spontaneous(4). Verbal Response: oriented(5). Motor Response: obeys ab2 commands(6). Total: 15. Trauma Score (Adult): 17:52 Eye Response: spontaneous(1); Verbal Response: oriented(1); Motor Response: obeys ab2 commands(2); Systolic BP: > 89 mm Hg(4); Respiratory Rate: 10 to 29 per min(4); [place] Score: 15; Trauma Score: 12 ED Course: 14:59 Patient arrived in ED. ds1 14:59 Tanja Nicole, LOUIS is Primary Nurse. iw 15:01 Tomas Peterson PA is PHCP. cp 15:01 Piter Grier MD is Attending Physician. cp 15:04 Triage completed. iw 15:06 Arm band placed on. iw 15:17 Patient has correct armband on for positive identification. Bed in low position. Call mh5 light in reach. Side rails up X2. Warm blanket given. Pillow given. business proposal rep on. Pulse ox on. NIBP on. 15:59 CT Traumagram (Head C Spine CAP wo con) In Process Unspecified. EDMS 17:52 No provider procedures requiring assistance completed. ab2 17:53 Patient maintains SpO2 saturation greater than 95% on room air. ab2 17:53 Thermoregulation: warm blanket given to patient. ab2 17:58 XRAY Shoulder RIGHT 2 view In Process Unspecified. EDMS 18:14 Patient did not have IV access during this emergency room visit. ab2 Administered Medications: 17:19 Drug: Tylenol 1000 mg Route: PO; ab2 17:30 Follow up: Response: No adverse reaction iw Outcome: 17:54 Discharge ordered by MD. cp 18:14 Discharged to home via wheelchair, with family. ab2 18:14 Condition: good 18:14 Discharge instructions given to patient, Instructed on discharge instructions, follow up and referral plans. wound care, Demonstrated understanding of instructions, follow-up care, wound care. 18:14 Patient left the ED. ab2 Signatures: Dispatcher [employer] EDOR Svitlana Kline ds1 Tanja Nicole RN RN Tomas Liu PA PA cp Martinez, [facility] Christophe Burris ab2
--- NOTE | 2021-11-02 17:55 | EDPHYS ---
Physician Documentation [facility] Name: Phi Cunningham Jr Age: 76 yrs Sex: Male : 1945 Arrival Date: 11/02/2021 Time: 14:59 Bed 28 Private MD: ED Physician Piter Grier HPI: 11/02 15:35 This 76 yrs old Male presents to ER via EMS with complaints of Fall Injury, cp Head Injury-Adult. 15:35 Details of fall: The patient fell from an upright position, while walking. Onset: The cp symptoms/episode began/occurred just prior to arrival. Associated injuries: The patient sustained injury to the head, laceration, of the left frontal area. Severity of symptoms: in the emergency department the symptoms have improved, mildly. 15:35 Patient reports losing balance and fall causing him to strike head on furniture. No LOC.cp Historical: - Home Meds: 15:05 atorvastatin 40 mg Oral tab 1 tab once daily [Active]; clonidine HCl 0.1 mg Oral tab 1 iw tab 2 times per day [Active]; furosemide 40 mg Oral tab 1 tab once daily [Active]; levothyroxine 75 mcg tab 1 tab once daily [Active]; lisinopril 20 mg Oral tab 1 tab once daily [Active]; metformin 500 mg Oral tab 2 times per day [Active]; metoprolol tartrate 50 mg Oral tab 1 tab once daily [Active]; Plavix 75 mg Oral tab 1 tab once daily [Active]; - PMHx: 15:05 CVA; Diabetes - IDDM; Hyperlipidemia; Hypertension; iw - Immunization history:: Adult Immunizations unknown. - Social history:: Smoking status: unknown. ROS: 15:40 Constitutional: Negative for body aches, chills, fever, poor PO intake. cp 15:40 Eyes: Negative for injury, pain, redness, and discharge. cp 15:40 Neck: Positive for pain with movement, pain at rest. 15:40 Cardiovascular: Negative for chest pain, palpitations. 15:40 Respiratory: Negative for cough, shortness of breath, wheezing. 15:40 Abdomen/GI: Negative for abdominal pain, nausea, vomiting, and diarrhea. 15:40 Neuro: Positive for headache, Negative for altered mental status, loss of consciousness, syncope, weakness. 15:40 All other systems are negative. Exam: 15:45 Constitutional: The patient appears in no acute distress, alert, awake, cp non-diaphoretic, non-toxic, well developed, well nourished. 15:45 Head/face: Noted is a laceration(s), that is deep, that is linear, of the left frontal cp area. 15:45 Eyes: Periorbital structures: appear normal, Extraocular movements: intact throughout, Conjunctiva: normal, no exudate, no injection, Sclera: no appreciated abnormality, Lids and lashes: appear normal, bilaterally. 15:45 ENT: External ear(s): are unremarkable, Nose: is normal, Mouth: Lips: moist, Oral mucosa: moist, Posterior pharynx: Airway: no evidence of obstruction, patent. 15:45 Neck: ROM/movement: pain, is not appreciated, limited range of motion, is not appreciated. 15:45 Chest/axilla: Inspection: normal, Palpation: is normal, no crepitus, no tenderness. 15:45 Cardiovascular: Rate: normal, Rhythm: regular, Edema: is not appreciated, JVD: is not appreciated. 15:45 Respiratory: the patient does not display signs of respiratory distress, Respirations: normal, no use of accessory muscles, no retractions, labored breathing, is not present, Breath sounds: are clear throughout, no decreased breath sounds, no stridor, no wheezing. 15:45 Abdomen/GI: Inspection: abdomen appears normal, Palpation: abdomen is soft and non-tender, in all quadrants. 15:45 Neuro: Orientation: to person, place \T\ time. Mentation: is normal, Motor: moves all fours, strength is normal, Sensation: no obvious gross deficits. Vital Signs: 15:18 BP 115 / 54; Pulse 73; Resp 16; Temp 98.4(O); Pulse Ox 99% on R/A; Weight 70.31 kg; mh5 Height 5 ft. 6 in. (167.64 cm); Pain 5/10; 17:57 BP 156 / 82; Pulse 68; Resp 17; Pulse Ox 99% on R/A; ab2 15:18 Body Mass Index 25.02 (70.31 kg, 167.64 cm) mh5 Rosalva Coma Score: 17:52 Eye Response: spontaneous(4). Verbal Response: oriented(5). Motor Response: obeys ab2 commands(6). Total: 15. Trauma Score (Adult): 17:52 Eye Response: spontaneous(1); Verbal Response: oriented(1); Motor Response: obeys ab2 commands(2); Systolic BP: > 89 mm Hg(4); Respiratory Rate: 10 to 29 per min(4); Rosalva Score: 15; Trauma Score: 12 Laceration: 17:49 Wound Repair of 2cm ( 0.8in ) subcutaneous laceration to left frontal area. Linear cp shaped.. Distal neuro/vascular/tendon intact. Wound prep: Simple cleansing by me. Skin closed with 3 Revere using staple gun. Dressed with Bacitracin. Patient tolerated well. MDM: 15:29 Patient medically screened. cp 16:00 Differential diagnosis: abrasion, closed head injury, contusion, fracture, laceration, cp multiple trauma. 17:50 ED course: Reexamination of right shoulder: Patient with full, active ROM. cp 17:51 Data reviewed: vital signs, nurses notes, radiologic studies, CT scan, plain films. cp Test interpretation: by ED physician or midlevel provider: xrays of right shoulder negative for dislocation and/or fracture. Counseling: I had a detailed discussion with the patient and/or guardian regarding: the historical points, exam findings, and any diagnostic results supporting the discharge/admit diagnosis, radiology results, the need for outpatient follow up, a family practitioner, to return to the emergency department if symptoms worsen or persist or if there are any questions or concerns that arise at home. Response to treatment: the patient's symptoms have markedly improved after treatment, and as a result, I will discharge patient. Special discussion: Based on the patient's history, exam and DX evaluation, there is no indication for emergent intervention or inpatient TX. It is understood by the patient/guardian that if the SXs persist or worsen they need to return immediately for re-evaluation. 11/02 15:29 Order name: CT Traumagram (Head C Spine CAP wo con); Complete Time: 16:35 cp 11/02 16:43 Order name: XRAY Shoulder RIGHT 2 view; Complete Time: 05:58 cp 11/02 16:36 Order name: Wound Care: please clean head wound; Complete Time: 17:57 cp Administered Medications: 17:19 Drug: Tylenol 1000 mg Route: PO; ab2 17:30 Follow up: Response: No adverse reaction iw Disposition Summary: 11/02/21 17:54 Discharge Ordered Location: Home cp Problem: new cp Symptoms: have improved cp Condition: Stable cp Diagnosis - Fall on same level, unspecified cp - Laceration without foreign body of scalp cp Followup: cp - With: Private Physician - When: 1 week - Reason: Staple/Suture removal Discharge Instructions: - Discharge Summary Sheet cp - Head Injury, Adult cp - Fall Prevention in the Home, Adult cp - Laceration Care, Adult cp - Sutures, Revere, or Adhesive Wound Closure cp Forms: - Medication Reconciliation Form cp - Thank You Letter cp - Antibiotic Education cp - Prescription Opioid Use cp Signatures: Dispatcher [employer] Tanja Kilgore RN RN iw Tomas Peterson PA PA cp Bleininger, Alexis ab2
--- NOTE | 2021-11-02 18:13 | RAD REPORT ---
EXAM DESCRIPTION: RAD - Shoulder Right 2 View - 11/02/2021 5:57 pm CLINICAL HISTORY: Right shoulder pain FINDINGS: No fracture is visualized. On a CT scan of the same date there was anterior subluxation of the humeral head. It is equivocally v isualized on this exam.
[2021-11-02 18:47] VITALS: TEMP 98.4; O2SAT 99
[2021-11-02 18:48] VITALS: BP 156/82
== END 2021-11-02 18:14 | disposition home or self-care (01) ==
LOC: ER 14:55
PROC: 0JQ00ZZ Repair Scalp Subcutaneous Tissue and Fascia, Open Approach (ICD-10-PCS; principal; 2021-11-02)
DX: S01.01XA Laceration without foreign body of scalp, initial encounter (principal); W18.30XA Fall on same level, unspecified, initial encounter; Y93.01 Activity, walking, marching and hiking; I10 Essential (primary) hypertension; E78.5 Hyperlipidemia, unspecified; E11.9 Type 2 diabetes mellitus without complications; Z79.01 Long term (current) use of anticoagulants; Z86.73 Personal history of transient ischemic attack (TIA), and cerebral infarction without residual deficits
CPT/HCPCS: 70450; 71250; 72125; 99285

== ENCOUNTER 2022-01-26 10:05 | Inpatient (IN) | payer OTHER ==
--- OUTSIDE RECORDS SUMMARY | 2022-01-26 10:07 | XMS REPORT | Continuity of Care Document ---
:1945 Author Organization [facility] t Address [address] [place] [address] Care Team Providers Name Role Phone Unavailable Unavailable Unavailable Problems This patient has no known problems. Allergies, Adverse Reactions, Alerts This patient has no known allergies or adverse reactions. Medications Ordered Filled Start Stop Current Ordering Indication Dosage Frequency Signature Comments Components Source Medication Medication Date Date Medication? Clinician (SIG) Name Name Levothyroxi Levothyroxi Yes Godfrey TK 1 T PO Common ne Sodium ne Sodium Ortiz D [facility] Clonidine Clonidine Yes Godfrey 1 tablet Common HCl HCl Ortiz at bedtime [facility] Metoprolol Metoprolol Yes Godfrey TK 1 T PO Common Tartrate Tartrate Ortiz BID [facility] Metformin Metformin Yes Godfrey TK 1 T PO Common HCl HCl Ortiz BID [facility] Lisinopril Lisinopril Yes Godfrey TK 1 T PO Common Ortiz D [facility] Atorvastati Atorvastati Yes Godfrey TK 1 T PO Common n Calcium n Calcium Ortiz QHS [facility] Clopidogrel Clopidogrel Yes Godfrey TK 1 T PO Common Bisulfate Bisulfate Ortiz QD [facility] Acetaminoph Acetaminoph Yes Godfrey (Schedule Common en-Codeine en-Codeine Ortiz III Drug) Dilan #3 #3 TK 2 T PO - [facility] Q 6 H PRF [facility] Furosemide Furosemide Yes Godfrey SMITH 1 T PO Common Ortiz QAM [facility] Procedures This patient has no known procedures. Encounters Start End Encounter Admission Attending Care Care Encounter Source Date/Time Date/Time Type Type Clinicians Facility Department ID 2019-06-22 2019-06-22 [id number] Common 11:04:00 11:04:00 [facility] 2018-11-22 2018-11-22 [facility] [id number] Common 11:13:00 11:13:00 t [facility] 2018-11-20 2018-11-20 [facility] [id number] Common 10:30:00 10:30:00 t [facility] 2018-10-02 2018-10-02 [facility] [id number] Common 10:20:00 10:20:00 t [facility] 2018-10-01 2018-10-01 [facility] [id number] Common 20:50:00 20:50:00 t [facility] 2018-09-26 2018-09-26 [facility] [id number] Common 10:00:00 10:00:00 t [facility] 2018-09-24 2018-09-24 [facility] [id number] Common 21:26:00 21:26:00 t [facility] 2018-09-18 2018-09-18 [facility] [id number] Common 09:48:00 09:48:00 t [facility] 2018-09-11 2018-09-11 [facility] [id number] Common 15:18:00 15:18:00 t [facility] 2018-09-11 2018-09-11 [facility] [id number] Common 11:00:00 11:00:00 t [facility] 2018-07-31 2018-07-31 Outpatient [facility] [id number] Common 11:00:00 11:00:00 t [facility] 2018-07-17 2018-07-17 Outpatient [facility] [id number] Common 14:09:00 14:09:00 t [facility] 2018-05-11 2018-05-11 Outpatient [facility] [id number] Common 17:06:00 17:06:00 t [facility] 2018-05-11 2018-05-11 Outpatient [facility] [id number] Common 13:30:00 13:30:00 t [facility] Sp[facility] Results This patient has no known results.
[2022-01-26 10:49] LABS: Absolute Lymphocytes (CBC) 0.9 K/uL (0.7-4.9); Hematocrit 31.7 % (39.6-49.0); Lymphocytes % 18.7 % (15.3-44.8); MCV 86.7 fL (80-100); MPV 8.7 fL (7.6-11.3); RBC Red Blood Cell Count 3.66 M/uL (4.33-5.43)
[2022-01-26 10:55] LABS: Protime INR 1.14
[2022-01-26 11:08] LABS: Magnesium 2.6 mg/dL (1.8-2.4); Potassium 4.1 mmol/L (3.5-5.1); Troponin High Sensitivity 45.4 pg/mL (<58.9)
--- NOTE | 2022-01-26 11:08 | RAD REPORT ---
EXAM DESCRIPTION: RAD - Chest Single View - 01/26/2022 10:54 am CLINICAL HISTORY: CHEST PAIN COMPARISON: September 2019 TECHNIQUE: AP portable chest image was obtained 01/26/2022 10:54 am . FINDINGS: No focal mass or consolidation. Interstitial pattern is accentuated by the film technique. A minimal interstitial edema or infiltrate could be masked. Heart size is increased slightly from th e prior study but the upper lobe vasculature is within normal limits. No measurable pleural effusion and no pneumothorax. No acute bony abnormality seen. No acute aortic findings suspected. IMPRESSION: No focal mass or consolidation. No significant failure or volume overload evident. Interstitial pattern is prominent but probably still baseline. Minimal edema or infiltrate could be m asked.
--- NOTE | 2022-01-26 12:31 | ER ---
Nurse's Notes [facility] Name: Phi Cunningham Jr Age: 76 yrs Sex: Male : 1945 Arrival Date: 01/26/2022 Time: 10:12 Bed 15 Private MD: Diagnosis: Chest pain, unspecified;Bradycardia, unspecified Presentation: 01/26 10:12 Chief complaint: Patient states: L chest pressure for 3 days. Home health nurse noticed ll1 his HR was 37, so they called EMS. Chief complaint: EMS states: BP 176/90, HR 37 2nd degree block type 2. 20 G L AC, NS TKO. Coronavirus screen: Vaccine status: Patient reports being unvaccinated. Client denies travel out of the [place] in the last 14 days. At this time, the client does not indicate any symptoms associated with coronavirus-19. Ebola Screen: Patient denies travel to an Ebola-affected area in the 21 days before illness onset. Initial Sepsis Screen: Does the patient meet any 2 criteria? No. Patient's initial sepsis screen is negative. Does the patient have a suspected source of infection? No. Patient's initial sepsis screen is negative. Risk Assessment: Do you want to hurt yourself or someone else? Patient reports no desire to harm self or others. Onset of symptoms was January 24, 2022. 10:12 Method Of Arrival: EMS ll1 10:12 Acuity: SAUL 3 ll1 Triage Assessment: 10:15 General: Appears in no apparent distress. Behavior is calm, cooperative, appropriate ll1 for age. Pain: Complains of pain in chest Quality of pain is described as pressure, Pain began 2-3 days ago. Is intermittent. Cardiovascular: Reports chest pain. Historical: - Allergies: 10:14 No Known Drug Allergies; ll1 - PMHx: 10:14 Diabetes - IDDM; Hypertension; Hyperlipidemia; CVA; ll1 - PSHx: 10:14 Unable to Obtain; ll1 - Immunization history:: Client reports having NOT received the Covid vaccine. Flu vaccine is not up to date. - Social history:: Smoking status: Patient denies any tobacco usage or history of. - Family history:: not pertinent. - Hospitalizations: : No recent hospitalization is reported. Screenin:32 Abuse screen: Denies threats or abuse. Nutritional screening: No deficits noted. ll1 Tuberculosis screening: No symptoms or risk factors identified. Fall Risk IV access (20 points). Gait- Weak (10 pts.). Total Chacko Fall Scale indicates Low Risk Score (25-44 pts). Fall prevention measures have been instituted. Side Rails Up X 2 Placed close to Nursing Station Frequent Obs/Assesments occuring Family Present and informed to notify staff if they need to leave bedside As available Patient and Family Educated on Fall Prevention Program and strategies. Assessment: 10:50 Reassessment: Patient appears in no apparent distress at this time. No changes from ll1 previously documented assessment. Patient and/or family updated on plan of care and expected duration. Pain level reassessed. Patient is alert, oriented x 3, equal unlabored respirations, skin warm/dry/pink. 11:45 Reassessment: No changes from previously documented assessment. Patient and/or family ll1 updated on plan of care and expected duration. Pain level reassessed. 12:45 Reassessment: No changes from previously documented assessment. Patient and/or family ll1 updated on plan of care and expected duration. Pain level reassessed. 13:45 Reassessment: No changes from previously documented assessment. Patient and/or family ll1 updated on plan of care and expected duration. Pain level reassessed. Patient is alert, oriented x 3, equal unlabored respirations, skin warm/dry/pink. 14:39 Reassessment: No changes from previously documented assessment. Patient and/or family ll1 updated on plan of care and expected duration. Pain level reassessed. Patient is alert, oriented x 3, equal unlabored respirations, skin warm/dry/pink. 15:30 Reassessment: No changes from previously documented assessment. Patient and/or family ll1 updated on plan of care and expected duration. Pain level reassessed. Patient is alert, oriented x 3, equal unlabored respirations, skin warm/dry/pink. 16:14 Reassessment: No changes from previously documented assessment. Patient and/or family ll1 updated on plan of care and expected duration. Pain level reassessed. Patient is alert, oriented x 3, equal unlabored respirations, skin warm/dry/pink. 17:14 Pain: Pain does not radiate. ll1 Vital Signs: 10:12 BP 181 / 126; Pulse 36; Resp 18; Temp 98.1; Pulse Ox 99% ; Weight 71.67 kg; Height 5 ll1 ft. 4 in. (162.56 cm); Pain 3/10; 10:31 BP 184 / 44; Pulse 34; ll1 11:30 BP 175 / 47; Pulse 32; Resp 17; ll1 12:30 BP 185 / 59; Pulse 65; Pulse Ox 99% ; ll1 13:30 BP 167 / 62; Pulse 34; Resp 18; Pulse Ox 99% ; ll1 14:43 BP 138 / 79; Pulse 35; Resp 18; Pulse Ox 100% on R/A; ll1 16:43 BP 166 / 46; Pulse 34; Resp 16; Pulse Ox 100% ; ll1 17:14 BP 158 / 55; Pulse 34; Resp 17; Temp 98.0; Pulse Ox 98% on R/A; Pain 3/10; ll1 10:12 Body Mass Index 27.12 (71.67 kg, 162.56 cm) ll1 ED Course: 10:12 Patient arrived in ED. ll1 10:14 Triage completed. ll1 10:15 Maintain EMS IV. Dressing intact. Good blood return noted. Site clean \T\ dry. Gauge \T\ ll 1 site: 20 G L AC. Patient maintains SpO2 saturation greater than 95% on room air. 10:16 Piter Grier MD is Attending Physician. rn 10:16 Arm band placed on Patient placed in an exam room, on a stretcher. ll1 10:22 Shawnee Olsen RN is Primary Nurse. ll1 10:32 Patient has correct armband on for positive identification. Bed in low position. Call ll1 light in reach. Side rails up X 1. Client placed on continuous cardiac and pulse oximetry monitoring. NIBP monitoring applied. 10:56 XRAY Chest (1 view) In Process Unspecified. EDMS 12:30 Joshua Menchaca is Hospitalizing Provider. rn 13:43 Vaishnavi Weathers MD is Hospitalizing Provider. rn 16:17 No provider procedures requiring assistance completed. Patient admitted, IV remains in ll1 place. Administered Medications: 12:55 Drug: Aspirin Chewable Tablet 324 mg Route: PO; ll1 16:10 Follow up: Response: No adverse reaction ll1 Medication: 10:32 VIS not applicable for this client. ll1 Outcome: 12:30 Decision to Hospitalize by Provider. rn 17:13 Admitted to Tele accompanied by tech, via wheelchair, room 223, with chart, Report ll1 called to Lindsay Chilel RN on 09 17: Condition: stable 17:35 Patient left the ED. ll1 Signatures: Dispatcher [employer] Piter Odell MD MD rn Lewis, Lynsay, RN RN ll1
--- NOTE | 2022-01-26 12:31 | EDPHYS ---
Physician Documentation [facility] Name: Phi Cunningham Jr Age: 76 yrs Sex: Male : 1945 Arrival Date: 01/26/2022 Time: 10:12 Bed 15 Private MD: ED Physician Piter Grier HPI: 01/26 10:41 This 76 yrs old Male presents to ER via EMS with complaints of Chest Pressure. rn 10:41 The patient or guardian reports chest pain that is located primarily in the substernal rn area, anterior aspect of left upper chest. Onset: 3 day(s) ago. The pain radiates to the left shoulder, neck. Associated signs and symptoms: Pertinent positives: dizziness, Pertinent negatives: abdominal pain, cough, shortness of breath, syncope, vomiting. The chest pain is described as a pressure, squeezing. Duration: The patient or guardian reports multiple episodes, that are intermittent. Modifying factors: The symptoms are alleviated by nothing. the symptoms are aggravated by nothing. Severity of pain: At its worst the pain was mild in the emergency department the pain is unchanged. The patient has not experienced similar symptoms in the past. The patient has not recently seen a physician. Home health nurse came by today, noted HR in 30s, pt reports chest pressure that radiates to neck and left shoulder. No hx of RI. Reports 3 days of chest pressure. NO trauma. NO syncope. . Historical: - Allergies: 10:14 No Known Drug Allergies; ll1 - PMHx: 10:14 Diabetes - IDDM; Hypertension; Hyperlipidemia; CVA; ll1 - PSHx: 10:14 Unable to Obtain; ll1 - Immunization history:: Client reports having NOT received the Covid vaccine. Flu vaccine is not up to date. - Social history:: Smoking status: Patient denies any tobacco usage or history of. - Family history:: not pertinent. - Hospitalizations: : No recent hospitalization is reported. ROS: 10:41 Constitutional: Negative for fever, chills, and weight loss, Eyes: Negative for injury, rn pain, redness, and discharge, ENT: Negative for injury, pain, and discharge, Neck: Negative for injury, pain, and swelling, Cardiovascular: Negative for palpitations, and edema, Respiratory: Negative for shortness of breath, cough, wheezing, and pleuritic chest pain, Abdomen/GI: Negative for abdominal pain, nausea, vomiting, diarrhea, and constipation, Back: Negative for injury and pain, MS/Extremity: Negative for injury and deformity, Skin: Negative for injury, rash, and discoloration, Neuro: Negative for headache, numbness, tingling, and seizure. Exam: 10:41 Constitutional: This is a well developed, well nourished patient who is awake, alert, rn and in no acute distress. Head/Face: Normocephalic, atraumatic. Eyes: Periorbital areas with no swelling, redness, or edema. Cardiovascular: Regular rhythm, bradycardic Respiratory: No increased work of breathing, no retractions or nasal flaring. Abdomen/GI: Soft, non-tender Skin: Warm, dry with normal turgor. Normal color with no rashes, no lesions, and no evidence of cellulitis. MS/ Extremity: Pulses equal, no cyanosis. Neuro: Awake and alert, GCS 15 Vital Signs: 10:12 BP 181 / 126; Pulse 36; Resp 18; Temp 98.1; Pulse Ox 99% ; Weight 71.67 kg; Height 5 ll1 ft. 4 in. (162.56 cm); Pain 3/10; 10:31 BP 184 / 44; Pulse 34; ll1 11:30 BP 175 / 47; Pulse 32; Resp 17; ll1 12:30 BP 185 / 59; Pulse 65; Pulse Ox 99% ; ll1 13:30 BP 167 / 62; Pulse 34; Resp 18; Pulse Ox 99% ; ll1 14:43 BP 138 / 79; Pulse 35; Resp 18; Pulse Ox 100% on R/A; ll1 16:43 BP 166 / 46; Pulse 34; Resp 16; Pulse Ox 100% ; ll1 17:14 BP 158 / 55; Pulse 34; Resp 17; Temp 98.0; Pulse Ox 98% on R/A; Pain 3/10; ll1 10:12 Body Mass Index 27.12 (71.67 kg, 162.56 cm) ll1 MDM: 10:16 Patient medically screened. rn 12:29 Differential diagnosis: acute myocardial infarction, acute pericarditis, coronary rn artery disease chest wall pain, costochondritis, pericarditis, pneumonia, pneumothorax, stable angina, unstable angina. The patient was given aspirin in the Emergency Department. Data reviewed: vital signs, nurses notes, lab test result(s), EKG, radiologic studies, plain films, and as a result, I will discharge patient. Counseling: I had a detailed discussion with the patient and/or guardian regarding: the historical points, exam findings, and any diagnostic results supporting the discharge/admit diagnosis, lab results, radiology results, the need for further work-up and treatment in the hospital. Response to treatment: the patient's symptoms have mildly improved after treatment. Admission orders: after a detailed discussion of the patient's condition and case, the admit orders are written by me. 01/26 10:26 Order name: Basic Metabolic Panel; Complete Time: 11:14 01/26 10:26 Order name: CBC with Diff 01/26 10:26 Order name: Magnesium; Complete Time: 11: 01/26 10:26 Order name: NT PRO-BNP; Complete Time: 11: 01/26 10:26 Order name: PT-INR; Complete Time: 11: 01/26 10:26 Order name: Troponin HS; Complete Time: 11: 01/26 10:26 Order name: XRAY Chest (1 view); Complete Time: 11: 01/26 10:26 Order name: EKG; Complete Time: 10:27 01/26 10:26 Order name: SARS-COV-2 RT PCR (Document "Date of Onset" if Symptomatic) 01/26 13:46 Order name: 60g Consistent Carbohydrate (ADA 1800/2000) [facility] 01/26 13:46 Order name: Echo with Doppler [facility] 01/26 17:07 Order name: T4 Free [facility] 01/26 17:07 Order name: Thyroid Stimulating Hormone [facility] 01/26 10:26 Order name: Cardiac monitoring; Complete Time: 10: 01/26 10:26 Order name: EKG - Nurse/Tech; Complete Time: 10: rn 01/26 10:26 Order name: IV Saline Lock; Complete Time: : 01/26 10:26 Order name: Labs collected and sent; Complete Time: 10: 01/26 10:26 Order name: O2 Per Protocol; Complete Time: : 01/26 10:26 Order name: O2 Sat Monitoring; Complete Time: 10:31 rn Administered Medications: 12:55 Drug: Aspirin Chewable Tablet 324 mg Route: PO; ll1 16:10 Follow up: Response: No adverse reaction ll1 Disposition Summary: 01/26/22 12:30 Hospitalization Ordered Hospitalization Status: Observation rn Location: Telemetry/MedSurg (observation) rn Condition: Stable rn Problem: new rn Symptoms: have improved rn Bed/Room Type: Standard rn Provider: Vaishnavi Weathers(01/26/22 13:43) rn Room Assignment: [facility](01/26/22 16:14) kj Diagnosis - Chest pain, unspecified rn - Bradycardia, unspecified rn Forms: - Medication Reconciliation Form rn - SBAR form rn Signatures: Dispatcher [employer] EDPiter West MD MD rn Jackson, Kandis kj1 Shawnee Olsen RN RN ll1 Corrections: (The following items were deleted from the chart) 13:43 12:30 Joshua Menchaca rn rn 16:14 12:30 rn kj1
[2022-01-26] MEDS ORDERED: ASPIRIN 81 MG CHEWABLE TABLET ONE (12:58)
[2022-01-26] MEDS ORDERED: HYDROCODONE/APAP 5/325 MG TAB PO PRN (13:42)
[2022-01-26] MEDS ORDERED: D50W 25 GM/50 ML SYRINGE IV PRN (13:45)
[2022-01-26] MEDS ORDERED: GLUCAGON 1 MG/VIAL IM PRN (13:45)
[2022-01-26] MEDS ORDERED: D10W 125 ML IV PRN (13:48)
[2022-01-26] MEDS ORDERED: ONDANSETRON 4 MG/2 ML VIAL IV PRN (16:15)
[2022-01-26] MEDS ORDERED: ACETAMINOPHEN 500 MG TAB PO PRN (16:15)
--- NOTE | 2022-01-26 16:24 | P.HP ---
Certification for Inpatient Patient admitted to: Inpatient With expected LOS: >2 Midnights Patient will require the following post-hospital care: None Practitioner: I am a practitioner with admitting privileges, knowledge of patient current condition, hospital course, and medical plan of care. Services: Services provided to patient in accordance with Admission requirements found in Title 42 Section 412.3 of the Code of Federal Regulations <Lefty Denny Arelis - Last Filed: 01/26/22 17:44> Patient History Date of Service: 01/26/22 Reason for admission: Chest pain History of Present Illness: Patient is a 76-year-old male with a past medical history significant for DM 2, hyperlipidemia, CVA, hypertension, CAD with CABG who presents with complaint of chest pain located in the left chest wall that has been ongoing for the past 3 days. Patient rated pain as 5/10 in severity and described pain as tightness in quality. Patient indicated that chest pain radiates to his left shoulder, neck and back. Patient reports associated signs and symptoms of weakness, fatigue, headache, dizziness, and generalized malaise. Patient indicated that he has not followed up with a oval or circular glass cutter in the past couple of years. Patient denies any other signs or symptoms. Symptoms are aggravated or relieved by nothing. Patient decided to present to the hospital due to worsening symptoms. - Past Medical/Surgical History Diabetic: Yes -: DM 2 -: HLD -: HTN -: Hypothyroidism Past Surgical History: Reviewed- Non-Contributory - Family History Family History: Reviewed- Non-Contributory - Social History Smoking Status: Never smoker Alcohol use: No CD- Drugs: No Caffeine use: No Place of Residence: Home <Lefty Denny - Last Filed: 01/26/22 17:44> Date of Service: 01/26/22 <Vaishnavi Weathers - Last Filed: 01/26/22 23:13> Allergies No Known Drug Allergies Allergy (Verified 02/18/17 10:37) Unknown No Known Vicente Allergy (Uncoded 02/22/17 18:35) Unknown Home Medications: Durezol 0.05% 1 gtt OPTH BID 12/05/12 cloNIDine HCL [Catapres*] 0.1 mg PO BID 12/05/12 Atorvastatin Calcium [Lipitor*] 20 mg PO BEDTIME #30 tab 12/08/12 Clopidogrel Bisulfate [Plavix*] 75 mg PO DAILY #30 tablet 12/08/12 Levothyroxine [Synthroid*] 0.075 mg PO DAILY 01/25/17 Metformin HCl [Glucophage] 500 mg PO DAILY WITH BREAKFAST 01/25/17 Metoprolol/Hydrochlorothiazide [Metoprolol-Hctz 50-25 mg Tab] 50 mg PO DAILY 01/25/17 Review of Systems General: Weakness, Malaise, Other (fatigue) Eyes: Unremarkable ENT: Unremarkable Respiratory: Unremarkable Cardiovascular: Chest Pain Gastrointestinal: Unremarkable Genitourinary: Unremarkable Musculoskeletal: Neck Pain, Back Pain Integumentary: Unremarkable Neurological: Weakness, Other (VALLADARES, Dizziness ) Lymphatics: Unremarkable <Lefty Denny - Last Filed: 01/26/22 17:44> Physical Examination - Physical Exam General: Alert, Oriented x3 HEENT: Normocephalic, PERRLA Neck: Supple, 2+ carotid pulse no bruit, JVD not distended Respiratory: Clear to auscultation bilaterally, Normal air movement Cardiovascular: Normal pulses, Regular rate/rhythm, Normal S1 S2 Capillary refill: <2 Seconds Gastrointestinal: Normal bowel sounds, Soft and benign Musculoskeletal: No clubbing, No swelling, No erythema Integumentary: No rashes, No breakdown, No significant lesion, No tenderness/swelling Neurological: Normal gait, Normal speech, Normal strength at 5/5 x4 extr, Normal tone, Sensation intact Lymphatics: No axilla or inguinal lymphadenopathy - Studies Laboratory Data (last 24 hrs) 01/26/22 10:40: PT 12.6 H, INR 1.14 01/26/22 10:40: WBC 4.9, Hgb 10.6 L, Hct 31.7 L, Plt Count 258 01/26/22 10:40: Sodium 140, Potassium 4.1, BUN 35 H, Creatinine 1.77 H, Glucose 98, Magnesium 2.6 H <Lefty Denny - Last Filed: 01/26/22 17:44> - Studies Laboratory Data (last 24 hrs) 01/26/22 10:40: PT 12.6 H, INR 1.14 01/26/22 10:40: WBC 4.9, Hgb 10.6 L, Hct 31.7 L, Plt Count 258 01/26/22 10:40: Sodium 140, Potassium 4.1, BUN 35 H, Creatinine 1.77 H, Glucose 98, Magnesium 2.6 H <Vaishnavi Weathers - Last Filed: 01/26/22 23:13> Assessment and Plan - Plan --Chest pain. To rule out ACS. Will trend serial troponins . Telemetry to monitor for any significant arrhythmia. Echocardiogram pending. Cardiology consulted. Will await further recommendations. --DM2. BS monitoring sliding scale insulin. --Hyperlipidemia. Continue statin. --History of CVA. Continue aspirin and statin. --History of CAD with CABG. Continue aspirin, Plavix and statin. --Hypertension. Poorly controlled. Continue home medication hydralazine. -- Hypothyroidism. Continue home medication. --Elevated BNP. Patient given a one-time dose of Lasix. Echocardiogram pending. Further management per oval or circular glass cutter- --COVID-19 infection. Patient asymptomatic. Continue droplet and airborne precautions. Continue supportive care. -- Anemia of chronic disease. H&H stable. We will continue to monitor hemoglobin and transfuse if less than 7.0. --CKD 3B. Baseline functions unknown. We will continue to monitor renal functions. --HLD. Continue statin. --DVT prophylaxis with heparin subQ Discharge Plan: Home Plan to discharge in: Greater than 2 days - Advance Directives Does patient have a Living Will: No Does patient have a Durable POA for Healthcare: No - Code Status/Comfort Care Code Status Assessed: Yes Code Status: Full Code Physician Review: Patient Assessed, Agree with Above Assessment and Plan Critical Care: No <Lefty Denny - Last Filed: 01/26/22 17:44> Date of Service: 01/26/22 SUBJECTIVE: Agree with the HPI as mentioned above OBJECTIVE: Vital Signs: reviewed General: WNL HEENT:WNL CV: WNL Lungs: WNL Abd: WNL Ext: WNL ASSESSMENT: 1. Chest pain rule out acute coronary syndrome 2. History of CABG PLAN: Plan as mentioned above <Vaishnavi Weathers - Last Filed: 01/26/22 23:13>
[2022-01-26] MEDS ORDERED: FUROSEMIDE 40 MG/4 ML VIAL IV ONE (16:30)
[2022-01-26] MEDS: INSULIN -REGULAR HUMAN 50 UNIT/0.5 ML ML SQ SCH ×2 (16:30→20:43)
[2022-01-26 17:07] LABS: Thyroid Stimulating Hormone 2.93 uIU/mL (0.360-3.740)
[2022-01-26] MEDS ORDERED: HYDRALAZINE HCL 20 MG/ML VIAL IV PRN ×2 (17:40→17:42)
[2022-01-26 18:23] VITALS: BMI 28.9
[2022-01-26] MEDS: ATORVASTATIN 20 MG TAB PO SCH (20:35)
[2022-01-26] MEDS: cloNIDine HCL 0.1 MG TAB PO SCH (20:35)
[2022-01-26] MEDS: HEPARIN 5000 UNIT/ML 1 ML VIAL SQ SCH (20:49)
[2022-01-26] MEDS: DUREZOL 0.05% OPTH SCH (21:00)
[2022-01-27] MEDS ORDERED: HYDRALAZINE HCL 20 MG/ML VIAL IV PRN (00:45)
[2022-01-27 04:01] LABS: Absolute Lymphocytes (CBC) 0.4 K/uL (0.7-4.9); Hematocrit 33.3 % (39.6-49.0); Lymphocytes % 6.4 % (15.3-44.8); MCV 85.8 fL (80-100); MPV 8.8 fL (7.6-11.3); RBC Red Blood Cell Count 3.88 M/uL (4.33-5.43)
[2022-01-27 04:23] LABS: Potassium 4.3 mmol/L (3.5-5.1)
[2022-01-27] MEDS: INSULIN -REGULAR HUMAN 50 UNIT/0.5 ML ML SQ SCH ×4 (07:30→21:00)
[2022-01-27] MEDS ORDERED: METFORMIN ER 500 MG TAB PO SCH (08:00)
[2022-01-27] MEDS: DUREZOL 0.05% OPTH SCH ×2 (09:00→21:00)
[2022-01-27] MEDS ORDERED: METOPROLOL XL 50 MG TAB PO SCH (09:00)
[2022-01-27] MEDS: ASPIRIN 81 MG CHEWABLE TABLET PO SCH (09:25)
[2022-01-27] MEDS: CLOPIDOGREL 75 MG TABLET PO SCH (09:25)
[2022-01-27] MEDS: hydroCHLOROthiazide 25 MG TAB PO SCH (09:26)
[2022-01-27] MEDS: LEVOTHYROXINE SOD 0.075 MG TAB PO SCH (09:26)
[2022-01-27] MEDS: HEPARIN 5000 UNIT/ML 1 ML VIAL SQ SCH ×2 (09:28→22:44)
[2022-01-27] MEDS: cloNIDine HCL 0.1 MG TAB PO SCH ×2 (09:31→22:05)
[2022-01-27] MEDS ORDERED: REGADENOSON 0.4 MG/5 ML SYR IV ONE (12:00)
--- NOTE | 2022-01-27 12:53 | EKG ---
Test Date: 2022-01-27 Test Time: 11:03:52 Loss Control Technician: DIANA MEASUREMENT RESULTS: Intervals: Rate: 32 FL: 206 QRSD: 152 QT: 596 QTc: 435 [place]: P: 30 FL: 206 QRS: -73 T: 115 INTERPRETIVE STATEMENTS: second degree av block type twoLeft anterior fascicular block Bifascicular block T wave abnormality, consider lateral ischemia Abnormal ECG Compared to ECG 01/26/2022 10:30:58 Left anterior fascicular block now present Bifascicular block now present T-wave abnormality now present Possible ischemia now present First degree AV block no longer present Left-axis deviation no longer present Left ventricular hypertrophy no longer present Myocardial infarct finding no longer present Electronically Signed On 01-27-22 12:52:14 CDT by Kaveh Pruett
--- NOTE | 2022-01-27 12:56 | EKG ---
Test Date: 2022-01-26 Test Time: 10:30:58 Filter Press Supervisor: DENNIS MEASUREMENT RESULTS: Intervals: Rate: 34 OK: 216 QRSD: 138 QT: 542 QTc: 407 [place]: P: 24 OK: 216 QRS: -67 T: 62 INTERPRETIVE STATEMENTS: second degree av block...probably type 2 Possible Left atrial enlargement Left axis deviation Right bundle branch block Left ventricular hypertrophy Inferior infarct, age undetermined Anterior infarct, age undetermined Abnormal ECG Compared to ECG 02/22/2017 14:17:[address] [facility] [place] Electronically Signed On 01-27-22 12:55:06 CDT by Kaveh Pruett
[2022-01-27] MEDS: HYDRALAZINE HCL 25 MG TABLET PO SCH ×2 (13:30→22:05)
--- NOTE | 2022-01-27 15:23 | P.PN ---
Subjective Date of Service: 01/27/22 Patient is severely bradycardic so we will not able to do Lexiscan. Patient with Mobitz type II second-degree AV block. Monitor on telemetry. Hold beta- faina therapy. Continue clonidine per now. Patient will need an event monitor and possible pacemaker placement as an outpatient. Review of Systems 10-point ROS is otherwise unremarkable Physical Examination - Vital Signs Temperature: 99 F Blood Pressure: 174/72 Pulse: 32 Respirations: 18 Pulse Ox (%): 92 - Physical Exam General: Alert, In no apparent distress HEENT: Atraumatic, PERRLA, EOMI Neck: Supple, JVD not distended Respiratory: Clear to auscultation bilaterally, Normal air movement Cardiovascular: Regular rate/rhythm, Normal S1 S2 Gastrointestinal: Normal bowel sounds, No tenderness Musculoskeletal: No tenderness Integumentary: No rashes Neurological: Normal speech, Normal tone, Normal affect Lymphatics: No axilla or inguinal lymphadenopathy - Studies Medications List Reviewed: Yes Assessment & Plan - Problems (Diagnosis) (1) Mobitz type 2 second degree atrioventricular block Current Visit: Yes Status: Acute (2) Chest pain, rule out acute myocardial infarction Current Visit: Yes Status: Acute (3) Diabetes mellitus Current Visit: No Status: Active (4) Hypertensive disorder, systemic arterial Current Visit: No Status: Active - Plan -High-sensitivity troponin -Cardiology consultation -Echocardiogram; stress test as an outpatient -Repeat EKG; outpatient event monitor and may need pacemaker -Lipid profile -Pt Skilled regarding modifying risk for cardiac disease Discharge Plan: Home Plan to discharge in: Greater than 2 days - Advance Directives Does patient have a Living Will: No Does patient have a Durable POA for Healthcare: No - Code Status/Comfort Care Code Status: Full Code Physician Review: Patient Assessed, Agree with Above Assessment and Plan Critical Care: No Time Spent Managing PTS Care (In Minutes): 35
[2022-01-27] MEDS: ATORVASTATIN 20 MG TAB PO SCH (22:05)
--- NOTE | 2022-01-28 07:01 | ECHO ---
HEIGHT: 5 ft 2 in WEIGHT: 158 lb 0 oz DATE OF STUDY: 01/27/[address]: Lefty Denny 2-DIMENSIONAL: YES M.MODE: YES DOPPLER: YES COLOR FLOW: YES TDS: YES PORTABLE: YES DEFINITY: BUBBLE STUDY: DIAGNOSIS: CHEST PAIN CARDIAC HISTORY: CATHERIZATION: YES SURGERY: YES PROSTHETIC VALVE: NO PACEMAKER: NO MEASUREMENTS (cm) DIASTOLIC (NORMALS) SYSTOLIC (NORMALS) IVSd 1.2 (0.6-1.2) LA Diam 3.7 (1.9-4.0) LVEF 67% LVIDd 5.4 (3.5-5.7) LVIDs 3.3 (2.0-3.5) %FS 38% LVPWd 1.3 (0.6-1.2) Ao Diam 3.0 (2.0-3.7) 2 DIMENSIONAL ASSESSMENT: RIGHT ATRIUM: NORMAL LEFT ATRIUM: NORMAL RIGHT VENTRICLE: NORMAL LEFT VENTRICLE: LEFT VENTRICULAR HYPERTROPHY TRICUSPID VALVE: NORMAL MITRAL VALVE: NORMAL PULMONIC VALVE: NORMAL AORTIC VALVE: STENOTIC PERICARDIAL EFFUSION: NONE AORTIC ROOT: NORMAL LEFT VENTRICULAR WALL MOTION: NORMAL DOPPLER/COLOR FLOW: MODERATE AORTIC STENOSIS - 1.2 CENTIMETERS SQUARED. MILD TRICUSPID REGURGITATION. COMMENTS: MODERATE AORTIC STENOSIS - 1.2 CENTIMETERS SQUARED. LEFT VENTRICULAR HYPERTROPHY. NORMAL LEFT VENTRICULAR EJECTION FRACTION AND FUNCTION. MILD TRICUSPID REGURGITATION. NORMAL RIGHT VENTRICULAR SYSTOLIC PRESSURE. TECHNOLOGIST: KAREY CORONADO
[2022-01-28] MEDS: INSULIN -REGULAR HUMAN 50 UNIT/0.5 ML ML SQ SCH ×2 (07:30→11:25)
[2022-01-28] MEDS: DUREZOL 0.05% OPTH SCH (09:00)
[2022-01-28] MEDS: HYDRALAZINE HCL 25 MG TABLET PO SCH ×2 (09:25→12:54)
[2022-01-28] MEDS: ASPIRIN 81 MG CHEWABLE TABLET PO SCH (09:25)
[2022-01-28] MEDS: hydroCHLOROthiazide 25 MG TAB PO SCH (09:26)
[2022-01-28] MEDS: cloNIDine HCL 0.1 MG TAB PO SCH (09:26)
[2022-01-28] MEDS: CLOPIDOGREL 75 MG TABLET PO SCH (09:26)
[2022-01-28] MEDS: HEPARIN 5000 UNIT/ML 1 ML VIAL SQ SCH (09:26)
[2022-01-28] MEDS: LEVOTHYROXINE SOD 0.075 MG TAB PO SCH (09:26)
--- NOTE | 2022-01-28 12:05 | CON ---
Date of Consultation: 01/27/2022 Reason For Consultation: Bradycardia and chest pain. History Of Present Illness: Mr. Cunningham is a 76-year-old male. Has had a CVA before. He has a history of hypertension, diabetes, dyslipidemia. Came in with chest pressure, was found to be in a second-d egree AV block type 2, heart rate is in the 30s. Denied any PND, orthopnea, pedal edema. Denied any syncope. Denied any fever or chills. Denied any nausea or vomiting or diaphoresis. Past Medical History: As stated above. Allergies: NONE. Review of Systems: Negative. Social History: Negative. Family History: Negative. Medications: At home include Lasix, Lipitor, clonidine, metoprolol, hydralazine, Plavix, Synthroid, metformin. Physical Examination: Vital Signs: His heart rate was 32 with blood pressure of 164/80. HEENT: Negative. Neck: Supple with no bruit. Chest: Clear. Cardiac: Revealed bradycardia with S4 gallops. No murmurs or rubs. Abdomen: Benign. Extremities: Revealed no clubbing, cyanosis, or edema. Diagnostic Data: He was COVID positive. BNP was 3282. Creatinine was 1.78. Impression And Plan: 1.Second-degree AV block type 2, most likely secondary to beta-blockade and clonidine combination. These have been held. Echocardiogram is pending. He may need a pacemaker. I think that he could pr ogress with symptoms. 2.COVID positive without any COVID symptoms. 3.Diabetes. 4.Hypertension, well controlled. 5.Dyslipidemia, well controlled. 6.History of cerebrovascular accident. For now, we will hold the metoprolol, obtain an echocardiogr am. If he remains bradycardic, I think he should have a pacemaker. MINH/TIESHA Voice ID: [id number] Report ID: [id number]
--- NOTE | 2022-01-28 12:18 | EKG ---
Test Date: 2022-01-27 Test Time: 21:10:04 Medical Secretary: ANA MEASUREMENT RESULTS: Intervals: Rate: 39 LA: 204 QRSD: 152 QT: 542 QTc: 436 [place]: P: -3 LA: 204 QRS: -77 T: 96 INTERPRETIVE STATEMENTS: Marked sinus bradycardia with occasional premature ventricular complexes with ventricular escape complexes Right bundle branch block Left anterior fascicular block Bifascicular block Abnormal ECG Compared to ECG 01/27/2022 11:03:52 Ventricular escape complex(es) now present Ventricular premature complex(es) now present Right bundle-branch block now present Left anterior fascicular block now present Second-degree AV block, Mobitz type I (Wenckebach) no longer present T-wave abnormality no longer present Possible ischemia no longer present Bifascicular block still present Electronically Signed On 01-28-22 12:16:40 CDT by Jayden Jones
--- NOTE | 2022-01-28 13:11 | PN ---
The patient was seen for second-degree AV block type 2. Beta-blockers have been held. This morning, he remains in second-degree AV block. He is somnolent, lethargic. Echocardiogram was normal. His beta-faina has been held. I believe he needs a pacemaker. We will discuss the case further with t he family and I will attempt to transfer him to [place] for a pacemaker in the very near future. He is hemodynamically stable otherwise. Case was discussed with Dr. Weathers. MINH/TIESHA Voice ID: [id number] Report ID: [id number]
[2022-01-28 13:27] VITALS: BP 114/46; TEMP 98.9
[2022-01-28 15:43] VITALS: O2SAT 96
--- NOTE | 2022-01-31 00:14 | P.DS ---
Discharge Date: 01/28/22 Disposition: TRANSFER TO [facility] Reason for Admission: Chest pain - Problems (1) Mobitz type 2 second degree atrioventricular block Status: Acute (2) Chest pain, rule out acute myocardial infarction Status: Acute (3) Diabetes mellitus Status: Active (4) Hypertensive disorder, systemic arterial Status: Active Brief History of Present Illness: Patient is a 76-year-old male with a past medical history significant for DM 2, hyperlipidemia, CVA, hypertension, CAD with CABG who presents with complaint of chest pain located in the left chest wall that has been ongoing for the past 3 days. Patient rated pain as 5/10 in severity and described pain as tightness in quality. Patient indicated that chest pain radiates to his left shoulder, neck and back. Patient reports associated signs and symptoms of weakness, fatigue, headache, dizziness, and generalized malaise. Patient indicated that he has not followed up with a wheel cleaner in the past couple of years. Patient denies any other signs or symptoms. Symptoms are aggravated or relieved by nothing. Patient decided to present to the hospital due to worsening symptoms. Hospital Course: Patient was in the 2nd degree AV block and we transfer patient to a tertiary care facility for pacemaker evaluation and possible placement. Vital Signs/Physical Exam: Temp Pulse Resp BP Pulse Ox 98.9 F 30 L 20 114/46 L 96 01/28/22 12:00 01/28/22 12:00 01/28/22 12:00 01/28/22 12:00 01/28/22 12:00 General: Alert, In no apparent distress, Oriented x3 Laboratory Data at Discharge: WBC 5.6 K/uL (4.3-10.9) D 01/27/22 03:45 Hgb 11.3 g/dL (13.6-17.9) L 01/27/22 03:45 Hct 33.3 % (39.6-49.0) L 01/27/22 03:45 Plt Count 253 K/uL (152-406) 01/27/22 03:45 PT 12.6 SECONDS (9.5-12.5) H 01/26/22 10:40 INR 1.14 01/26/22 10:40 Sodium 138 mmol/L (136-145) 01/27/22 03:45 Potassium 4.3 mmol/L (3.5-5.1) 01/27/22 03:45 BUN 35 mg/dL (7-18) H 01/27/22 03:45 Creatinine 1.78 mg/dL (0.55-1.3) H 01/27/22 03:45 Glucose 133 mg/dL (74-106) H 01/27/22 03:45 Magnesium 2.6 mg/dL (1.8-2.4) H 01/26/22 10:40 Home Medications: Durezol 0.05% 1 gtt OPTH BID 12/05/12 cloNIDine HCL [Catapres*] 0.1 mg PO BID 12/05/12 Atorvastatin Calcium [Lipitor*] 20 mg PO BEDTIME #30 tab 12/08/12 Clopidogrel Bisulfate [Plavix*] 75 mg PO DAILY #30 tablet 12/08/12 Levothyroxine [Synthroid*] 0.075 mg PO DAILY 01/25/17 Metformin HCl [Glucophage] 500 mg PO DAILY WITH BREAKFAST 01/25/17 Metoprolol/Hydrochlorothiazide [Metoprolol-Hctz 50-25 mg Tab] 50 mg PO DAILY 01/25/17 Physician Discharge Instructions: Transferred to [facility] Diet: [facility] Followup: NONE,NONE [Primary Care Provider] - Time spent managing pt's care (in minutes): 35
== END 2022-01-28 15:54 | disposition short-term general hospital (02) | DRG 308 ==
LOC: ER 10:05 → ERHOLD 13:42 → 2ND 17:13
PROVIDERS: ADMIT Hospitalist; ATTEND Hospitalist
DX: I44.1 Atrioventricular block, second degree (principal); U07.1 COVID-19; E11.9 Type 2 diabetes mellitus without complications; E78.5 Hyperlipidemia, unspecified; I10 Essential (primary) hypertension; I25.10 Atherosclerotic heart disease of native coronary artery without angina pectoris; E03.9 Hypothyroidism, unspecified; Z95.1 Presence of aortocoronary bypass graft; Z86.73 Personal history of transient ischemic attack (TIA), and cerebral infarction without residual deficits
CPT/HCPCS: 36415; 71045; 80048; 82947; 83735; 83880; 84439; 84443; 84484; 85025; 85610; 93005; 93306; 99285; J0360; J1644; J1815; J1940; J2785; U0003

== ENCOUNTER 2022-06-17 10:59 | Inpatient (IN) | payer OTHER ==
--- OUTSIDE RECORDS SUMMARY | 2022-06-17 11:04 | XMS REPORT | Continuity of Care Document ---
:1945 Author Organization [facility] t Address [address] [place] [address] Care Team Providers Name Role Phone No, Pcp [facility] Primary Care Physician Unavailable Naida Shaw MD Attending Clinician [phone] NAIDA SHAW Attending Clinician Unavailable Tino Mata MD Attending Clinician NAIDA SHAW Admitting Clinician Unavailable Payers Payer Name Policy Type Policy Number Effective Date Expiration Date S ource Problems Condition Condition Condition Status Onset Resolution Last Treating Co mments Source Name Details Category Date Date Treatment Clinician Date Mobitz Mobitz Disease Active [facility] second second 00:00: Medical degree AV degree AV 00 Cent er block block Allergies, Adverse Reactions, Alerts Allergy Allergy Status Severity Reaction(s) Onset Inactive Treating Comm ents Source Name Type Date Date Clinician NO KNOWN Allergy Active [facility] Social History Social Habit Start Date Stop Date Quantity Comments Source History [facility] Alcohol intake 2022-02-02 2022-02-02 Ex-drinker [facility] 00:[facility] 00:00:00 (finding) Medical Center History [facility] 2022-01-28 2022-01-[address] [facility] Transport Med 00:00:00 00:00:[address] History [facility] 2022-01-28 2022-01-[address] [facility] Housing Unable to 00:00:00 00:00:00 Medical Center Pay History [facility] 2022-01-28 2022-01-[address] [facility] Housing Places 00:00:00 00:00:00 Medical Ce nter Lived History SDOH 2022-01-28 2022-01-[address] [facility] Housing Homeless 00:00:00 00:00:00 Medical Center Last Year Tobacco use and 2022-01-28 2022-01-[address] [facility] [facility] exposure 00:00:00 00:00:00 Medical Center Sex Assigned At [birth year] [facility] [address] [facility]es 00:00:00 00:00:00 Medical Center Smoking Status Start Date Stop Date Source Never smoker [facility] Med ical Center Medications Ordered Filled Start Stop Current Ordering Indication Dosage Frequency Signature Comments Components Source Medication Medication Date Date Medication? Clinician (SIG) Name Name NIFEdipine Yes 60mg QD Take 1 [facility] (PROCARDIA- 7-03 tablet (60 Margarita kes XL) 60 MG 00:00: mg total) Med ical (OSM) 24 hr 00 by mouth Cent er tablet daily. NIFEdipine Yes 60mg QD Take 1 [facility] (PROCARDIA- 7-03 tablet (60 Margarita kes XL) 60 MG 00:00: mg total) Med ical (OSM) 24 hr 00 by mouth Cent er tablet daily. diflupredna Yes 1[drp] Q.5D Apply [address] 7-02 drop to [facility] (DurezoL) 16:38: eye(s) 2 Medi mira 0.05 % Drop 17 (two) Center times daily. atorvastati Yes 20mg QD Take [address] n (LIPITOR) 7-02 by mouth Luke s 20 MG 16:38: nightly. Medical tablet 17 Center clopidogreL Yes 75mg QD Take [address] (PLAVIX) 75 7-02 by mouth Luke s mg tablet 16:38: daily. Medica l 17 Center levothyroxi Yes 75ug Take [address] ne 7-02 mcg by [facility] (SYNTHROID, 16:38: mouth Medic al LEVOTHROID) 17 Every Center 75 MCG morning on tablet an empty stomach. metFORMIN Yes 500mg Take [address] (GLUCOPHAGE 7-02 mg by [facility]ukes ) 500 MG 16:38: mouth Medical tablet 17 daily with Center breakfast. diflupredna Yes 1[drp] Q.5D Apply [address] te 7-02 drop to [facility] (DurezoL) 16:38: eye(s) 2 Medi mira 0.05 % Drop 17 (two) Center times daily. atorvastati Yes 20mg QD Take [address] n (LIPITOR) 7-02 by mouth Luke s 20 MG 16:38: nightly. Medical tablet 17 Center clopidogreL Yes 75mg QD Take [address] (PLAVIX) 75 7-02 by mouth Luke s mg tablet 16:38: daily. Medica l 17 Center levothyroxi Yes 75ug Take [address] ne 7-02 mcg by [facility]ukes (SYNTHROID, 16:38: mouth Medic al LEVOTHROID) 17 Every Center 75 MCG morning on tablet an empty stomach. metFORMIN Yes 500mg Take [address] (GLUCOPHAGE 7-02 mg by LuPharmMD ) 500 MG 16:38: mouth Medical tablet 17 daily with Center breakfast. cloNIDine 2021- No .1mg Q.5D Take 0.[address] HCL 7-02 07-02 mg by [facility] (CATAPRES) 09:57: 00:00 mouth 2 Med ical 0.1 MG 47 :00 (two) Center tablet times daily. metoprolol 2021- No 1{tbl} QD Take [address] ta-hydrochl 7-02 07-02 tablet by Margarita [employer] orothiaz 09:57: 00:00 mouth Medical (LOPRESSOR 47 :00 daily. Center HCT) 50-25 mg per tablet cloNIDine 2021- No .1mg Q.5D Take 0.[address] HCL 7-02 07-02 mg by [facility]ukes (CATAPRES) 09:57: 00:00 mouth 2 Med ical 0.1 MG 47 :00 (two) Center tablet times daily. metoprolol 2021- No 1{tbl} QD Take [address] ta-hydrochl 7-02 07-02 tablet by Margarita [employer] orothiaz 09:57: 00:00 mouth Medical (LOPRESSOR 47 :00 daily. Center HCT) 50-25 mg per tablet mINOCYCLine 2021- No 100mg Take [address] (MINOCIN,DY 01-30 capsule Luke s NACIN) 100 00:00: 23:59 (100 mg Med ical MG capsule 00 :00 total) by Cent er mouth every 12 (twelve) hours for 5 days. mINOCYCLine 2021- No 100mg Take [address] (MINOCIN,DY 01-30 capsule Luke s NACIN) 100 00:00: 23:59 (100 mg Med ical MG capsule 00 :00 total) by Cent er mouth every 12 (twelve) hours for 5 days. Levothyroxi Levothyroxi Yes Godfrey SMITH 1 T PO Common ne Sodium ne Sodium Ortiz D [facility] Clonidine Clonidine Yes Godfrey 1 tablet Common HCl HCl Ortiz at bedtime [facility] Metoprolol Metoprolol Yes Godfrey TK 1 T PO Common Tartrate Tartrate Ortiz BID [facility] Metformin Metformin Yes Godfrey SMITH 1 T PO Common HCl HCl Ortiz BID [facility] Lisinopril Lisinopril Yes Godfrey TK 1 T PO Common Ortiz D [facility] Atorvastati Atorvastati Yes Godfrey TK 1 T PO Common n Calcium n Calcium Ortiz QHS [facility] Clopidogrel Clopidogrel Yes Godfrey TK 1 T PO Common Bisulfate Bisulfate Ortiz QD [facility] Acetaminoph Acetaminoph Yes Godfrey (Schedule Common en-Codeine en-Codeine Ortiz III Drug) Dilan #3 #3 TK 2 T PO - CHI Q 6 H PRF [facility] Furosemide Furosemide Yes Godfrey SMITH 1 T PO Common Ortiz QAM [facility] Vital Signs Vital Name Observation Time Observation Value Comments Source HEIGHT 2022-01-28 17:45:00 157.5 cm WEIGHT 2022-01-28 17:45:00 71.4 kg HEIGHT 2022-01-28 17:45:00 157.5 cm WEIGHT 2022-01-28 17:45:00 71.4 kg HEIGHT 2022-01-28 17:45:00 157.5 cm WEIGHT 2022-01-28 17:45:00 71.4 kg Systolic blood 2022-01-30 15:00:00 147 mm[Hg] [facility] Diastolic blood 2022-01-30 15:00:00 67 mm[Hg] [facility] Heart rate 2022-01-30 15:00:00 78 /min [facility] Body temperature 2022-01-30 15:00:00 37.11 Idania [facility] Respiratory rate 2022-01-30 15:00:00 20 /min [facility] Oxygen saturation in 2022-01-30 15:00:00 96 /min [facility] Arterial blood by Medical Ce nter Pulse oximetry Body height 2022-01-28 17:45:00 157.5 cm [facility] Body weight 2022-01-28 17:45:00 71.4 kg [facility] BMI 2022-01-28 17:45:00 28.79 kg/m2 [facility] Procedures Procedure Date / Time Performed Performing Clinician Sour e POCT-GLUCOSE METER 2022-01-30 12:02:00 Naida Shaw [facility] C-REACTIVE PROTEIN 2022-01-30 08:56:00 Zak, Rob Love [facility] CBC W/PLT COUNT & AUTO 2022-01-30 05:18:00 Naida Shaw i [facility] BASIC METABOLIC PANEL 2022-01-30 05:18:00 Naida Shaw [facility] MAGNESIUM 2022-01-30 05:18:00 Mcclain-Te, [facility] PHOSPHORUS 2022-01-30 05:18:00 Mcclain-Te, [facility] CBC W/PLT COUNT & AUTO 2022-01-30 05:18:00 Naida Shaw i [facility] POCT-GLUCOSE METER 2022-01-30 04:53:00 Naida Shaw [facility] XR CHEST 1 VIEW PORTABLE 2022-01-29 18:38:00 Mcclain-Te, [facility] / BEDSIDE [facility] TSH/FREE T4 IF INDICATED 2022-01-29 17:52:00 [facility] POCT-GLUCOSE METER 2022-01-29 17:47:00 Naida Shaw [facility] INSERTION, CARDIAC 2022-01-29 14:40:00 Adolfo, Amir [facility] PACEMAKER, WITH Medical [place] TRANSVENOUS ATRIAL ELECTRODE LEAD POCT-GLUCOSE METER 2022-01-29 12:06:00 Naida Shaw [facility] 2D ECHO W/ DOPPLER 2022-01-29 09:03:35 Naida Shaw [facility] (CW/PW/COLOR) [facility] XR CHEST 1 VIEW PORTABLE 2022-01-29 05:25:00 Adolfo, Tino [facility] / BEDSIDE [facility] [place] CBC W/PLT COUNT & AUTO 2022-01-29 04:38:00 Naida Shaw i [facility] BASIC METABOLIC PANEL 2022-01-29 04:38:00 Naida Shaw [facility] PHOSPHORUS 2022-01-29 04:38:00 Mcclain-Te, [facility] MAGNESIUM 2022-01-29 04:38:00 Mcclain-, [facility] CBC W/PLT COUNT & AUTO 2022-01-29 04:38:00 Naida Shaw i [facility] POCT-GLUCOSE METER 2022-01-29 04:33:00 Naida Shaw [facility] INSERTION, CATHETER, 2022-01-29 00:15:00 Adolfo, Tino [facility] TEMPORARY PACING [facility] B-TYPE NATRIURETIC 2022-01-28 23:39:00 Adolfo, Amir [facility] FACTOR (BNP) [facility] TROPONIN I 2022-01-28 23:39:00 Adolfo, Amir [facility] PT/APTT 2022-01-28 23:39:00 Adolfo, Amir [facility] XR CHEST 1 VIEW PORTABLE 2022-01-28 19:10:00 [facility] CBC W/PLT COUNT & AUTO 2022-01-28 18:31:00 Naida Shaw i [facility] BASIC METABOLIC PANEL 2022-01-28 18:31:00 Naida Shaw [facility] MAGNESIUM 2022-01-28 18:31:00 [facility] 2022-01-28 18:31:[address] [facility] HEPATIC FUNCTION PANEL 2022-01-28 18:31:00 Naida Shaw [facility] HEMOGLOBIN A1C 2022-01-28 18:31:00 [facility] 2022-01-28 18:31:00 [facility] T4, FREE 2022-01-28 18:31:00 [facility]rit [facility] CBC W/PLT COUNT & AUTO 2022-01-28 18:31:00 Naida ShawAvril [facility] ARRYTHMIA IMPLANT REPORT 2022-01-28 00:00:[address] [facility] CARDIAC CATH REPORT - 2022-01-28 00:00:00 Provider, Tea [facility] EKG-SCANNED 2022-01-28 00:00:00 Provider, Tea [facility] Plan of Care Planned Activity Planned Date Details Comments Source Future Scheduled 2022-04-01 INFLUENZA VACCINE (#1) [facility] 00:00:00 [code = INFLUENZA Medical Ce nter VACCINE (#1)] Future Scheduled 2022-04-01 INFLUENZA VACCINE (#1) [facility] 00:00:00 [code = INFLUENZA Medical Ce nter VACCINE (#1)] Future Scheduled 2021-08-01 DEPRESSION SCREENING [facility] St kes Test 00:00:00 (12+) [code = Medical Center DEPRESSION SCREENING (12+)] Future Scheduled 2021-08-01 FALLS RISK SCREENING [facility] Test 00:00:00 [code = FALLS RISK Medical C enter SCREENING] Future Scheduled 2021-08-01 Medicare IPPE (WELCOME [facility] 00:00:00 TO MEDICARE) [code = Medical Center Medicare IPPE (WELCOME TO MEDICARE)] Future Scheduled 2021-08-[address] [facility] Test 00:00:00 (12+) [code = Medical Center DEPRESSION SCREENING (12+)] Future Scheduled 2021-08-01 FALLS RISK SCREENING [facility] Test 00:00:00 [code = FALLS RISK Medical C enter SCREENING] Future Scheduled 2021-08-01 Medicare IPPE (WELCOME [facility] Test 00:00:00 TO MEDICARE) [code = Medical Center Medicare IPPE (WELCOME TO MEDICARE)] Future Scheduled 2009-02-07 PNEUMOCOCCAL 65+ [facility] Test 00:00:00 (1 - PCV) [code = Medical Ce nter PNEUMOCOCCAL 65+ YRS (1 - PCV)] Future Scheduled 2009-02-07 PNEUMOCOCCAL 65+ Y[facility] Test 00:00:00 (1 - PCV) [code = Medical Ce nter PNEUMOCOCCAL 65+ YRS (1 - PCV)] Future Scheduled 1994-02-07 SHINGLES VACCINES ([address] [facility] Test 00:00:00 of 2) [code = SHINGLES Medic al Center VACCINES (1 of 2)] Future Scheduled 1994-02-07 SHINGLES VACCINES ([address] [facility] Test 00:00:00 of 2) [code = SHINGLES Medic al Center VACCINES (1 of 2)] Future Scheduled 1963-02-07 DTAP/TDAP/TD VACCINES [facility] 00:00:00 (1 - Tdap) [code = Medical C enter DTAP/TDAP/TD VACCINES (1 - Tdap)] Future Scheduled 1963-02-07 DTAP/TDAP/TD VACCINES [facility] Test 00:00:00 (1 - Tdap) [code = Medical C enter DTAP/TDAP/TD VACCINES (1 - Tdap)] Future Scheduled 1962-02-07 HEPATITIS C [facility]CRE[facility]ING [facility] 00:00:00 [code = HEPATITIS C Medical Center SCREENING] Future Scheduled 1962-02-07 HEPATITIS C [facility]CRE[facility]ING [facility] 00:00:00 [code = HEPATITIS C Medical Center SCREENING] Future Scheduled 1945 COVID-19 VACCINE (#1) [facility] 00:00:00 [code = COVID-[address] VACCINE (#1)] Future Scheduled 1945 COVID-19 VACCINE (#1) [facility] 00:00:00 [code = COVID-[address] VACCINE (#1)] Encounters Start End Encounter Admission Attending Care Care Encounter Source Date/Time Date/Time Type Type Clinicians Facility Department ID 2022-01-28 2022-01-30 [facility] [id number] 17:00:00 15:40:00 Encounter Naida rhoda [facility] 2022-01-28 2022-01-30 Inpatient [facility] [id number] [facility] 17:00:00 15:40:00 NAIDA 2022-01-28 2022-01-30 [facility] [id number] 17:00:00 15:40:00 Encounter [facility] 2022-01-29 2022-01-29 [facility] [id number] [facility] 14:30:00 16:00:00 [facility] 2022-01-29 2022-01-29 Surgery Adolfo, [facility] [id number] 14:30:00 16:00:00 [facility] 2022-01-29 2022-01-29 Surgery Adolfo, [facility] [id number] 12:30:00 13:09:00 [facility] 2022-01-29 2022-01-29 Surgery Adolfo, [facility] [id number] 12:30:00 13:09:00 [facility] 2022-01-28 2022-01-28 Surgery Adolfo, Amir [facility] [id number] 23:00:00 23:39:00 [facility] 2022-01-28 2022-01-28 Surgery Tino Mata [facility] [id number] 23:00:00 23:39:00 [facility] 2022-01-28 2022-01-28 Travel [facility] [id number] [facility] 00:[facility]00 00:00:00 [facility] 2022-01-28 2022-01-28 Travel [facility] [id number] [facility] 00:[facility]:00 00:00:00 [facility] 2019-06-22 2019-06-22 [facility] [id number] Common 11:04:00 11:04:00 [facility] 2018-11-22 2018-11-22 [facility] [id number] Common 11:13:00 11:13:00 t [facility] - [facility] 2018-11-20 2018-11-20 [facility] [id number] Common 10:30:00 10:30:00 t [facility] - [facility] 2018-10-02 2018-10-02 [facility] [id number] Common 10:20:00 10:20:00 t Bone Bone [facility] Spiri t and Joint [facility] 2018-10-01 2018-10-01 [facility] [id number] Common 20:50:00 20:50:00 t [facility] Bone [facility] Spiri t and Joint Joint - [facility] 2018-09-26 2018-09-26 [facility] [id number] Common 10:00:00 10:00:00 t [facility] Bone [facility] Sp[facility] t and [facility] Joint - [facility] 2018-09-24 2018-09-24 [facility] [id number] Common 21:26:00 21:26:00 t [facility] - [facility] 2018-09-18 2018-09-18 [facility] [id number] Common 09:48:00 09:48:00 t [facility] - [facility] 2018-09-11 2018-09-11 [facility] [id number] Common 15:18:00 15:18:00 t [facility] t [facility] - [facility] 2018-09-11 2018-09-11 [facility] [id number] Common 11:00:00 11:00:00 t [facility] t [facility] - [facility] 2018-07-31 2018-07-31 [facility] [id number] Common 11:00:00 11:00:00 t [facility] - [facility] 2018-07-17 2018-07-17 [facility] [id number] Common 14:09:00 14:09:00 t [facility] Bone and Spiri t and Joint Joint - [facility] 2018-05-11 2018-05-11 [facility] [id number] Common 17:06:00 17:06:00 t Bone Bone and Spiri t and Joint Joint - [facility] 2018-05-11 2018-05-11 [facility] [id number] Common 13:30:00 13:30:00 t Bone Bone and Spiri t and Joint [facility] - [facility] Results Test Description Test Time Test Comments Results Result Comments Source POC-Glucose meter 2022-01-30 12:14:07 Test Item Value Reference Range Interpretation Comme nts POC-Glucose Meter (test code = 103 mg/dL 70-110 : TESTED AT [place] [address]) [facility] [address]: Head Animal Keeper/Techni corazon ID = [id number] for Kiana Rome ry Lab Interpretation (test code = Normal 96559-1) [facility] [id number] 12:14:07 Test Item Value Reference Range Interpretation Comments POC-Glucose Meter (test 103 mg/dL 70-110 : TE STED AT [facility] code = 1538) [address], [facility] [address]: Head Animal Keeper/Techni corazon ID = [id number] for Kiana Rome ry Lab Interpretation (test Normal code = 84173-7) [facility]-GLUCOSE [id number] 12:14:07 Test Item Value Reference Range Interpretation Comments POC-GLUCOSE METER 103 mg/dL 70-110 : TESTED A T [facility] 1317 (BEAKER) (test code [address], = 1538) [facility] 77 [address]: Head Animal Keeper/Techni corazon ID = [id number] for Sowmya Mcdonald C-REACTIVE [id number] 09:22:35 Test Item Value Reference Range Interpretation Comments C-REACTIVE PROTEIN (BEAKER) (test 2.77 mg/dL 0.00-0.50 H code = 676) Head Animal Keeper ID - [id number] 06:21:42 Test Item Value Reference Range Interpretation Comments MAGNESIUM (BEAKER) (test code = 2.3 mg/dL 1.5-3.0 627) Head Animal Keeper ID - [id number] ID - [id number] ID - [id number] ID - [id number] BASIC METABOLIC [id number] 06:20:35 Test Item Value Reference Range Interpretation Comments SODIUM (BEAKER) 139 meq/L 135-148 (test code = 381) POTASSIUM (BEAKER) 4.2 meq/L 3.6-5.5 (test code = 379) CHLORIDE (BEAKER) 108 meq/L 98-106 H (test code = 382) CO2 (BEAKER) (test 19 meq/L 20-29 L code = 355) BLOOD UREA NITROGEN 32 mg/dL 10-26 H (BEAKER) (test code = 354) CREATININE (BEAKER) 1.69 mg/dL 0.50-1.20 H (test code = 358) GLUCOSE RANDOM 103 mg/dL 70-110 (BEAKER) (test code = 652) CALCIUM (BEAKER) 8.3 mg/dL 8.5-10.5 L (test code = 697) EGFR (BEAKER) (test 40 mL/min/1.73 ESTIMA TOÑITO GFR IS code = 1092) sq m NOT ACCURATE CREATININE CLEARANCE IN PREDICTING GLOMERULAR FILTRATION RATE . ESTIMATED GFR I S NOT APPLICABLE FOR DIALYSIS PATIEN TS. Head Animal Keeper ID - [id number] ID - [id number] ID - [id number] ID - [id number] ID - [id number] ID - [id number] ID - [id number] ID - [id number] ID - [id number] ID - [id number] 06:19:01 Test Item Value Reference Range Interpretation Comments PHOSPHORUS (BEAKER) (test code = 3.1 mg/dL 2.5-4.5 604) Head Animal Keeper ID - [id number] W/PLT COUNT & AUTO [id number] 06:02:42 Test Item Value Reference Range Interpretation Comments WHITE BLOOD CELL COUNT (BEAKER) 3.8 K/ L 4.0-10.0 L (test code = 775) RED BLOOD CELL COUNT (BEAKER) 4.06 M/ L 4.20-5.80 L (test code = 761) HEMOGLOBIN (BEAKER) (test code = 11.8 GM/DL 13.0-16.8 L 410) HEMATOCRIT (BEAKER) (test code = 34.8 % 36.0-50.0 L 411) MEAN CORPUSCULAR VOLUME (BEAKER) 85.7 fL 82.0-99.0 (test code = 753) MEAN CORPUSCULAR HEMOGLOBIN 29.1 pg 27.0-33.0 (BEAKER) (test code = 751) MEAN CORPUSCULAR HEMOGLOBIN CONC 33.9 GM/DL 32.0-36.0 (BEAKER) (test code = 752) RED CELL DISTRIBUTION WIDTH 14.0 % 12.0-15.0 (BEAKER) (test code = 412) PLATELET COUNT (BEAKER) (test 169 K/CU MM 150-430 code = 756) MEAN PLATELET VOLUME (BEAKER) 11.0 fL 6.0-11.5 (test code = 754) NUCLEATED RED BLOOD CELLS 0 /100 WBC 0-0 (BEAKER) (test code = 413) NEUTROPHILS RELATIVE PERCENT 72 % (BEAKER) (test code = 429) LYMPHOCYTES RELATIVE PERCENT 18 % (BEAKER) (test code = 430) MONOCYTES RELATIVE PERCENT 10 % (BEAKER) (test code = 431) EOSINOPHILS RELATIVE PERCENT 0 % (BEAKER) (test code = 432) BASOPHILS RELATIVE PERCENT 1 % (BEAKER) (test code = 437) NEUTROPHILS ABSOLUTE COUNT 2.69 K/ L 1.80-8.00 (BEAKER) (test code = 670) LYMPHOCYTES ABSOLUTE COUNT 0.68 K/ L 1.48-4.50 L (BEAKER) (test code = 414) MONOCYTES ABSOLUTE COUNT (BEAKER) 0.36 K/ L 0.00-1.30 (test code = 415) EOSINOPHILS ABSOLUTE COUNT 0.00 K/ L 0.00-0.50 (BEAKER) (test code = 416) BASOPHILS ABSOLUTE COUNT (BEAKER) 0.02 K/ L 0.00-0.20 (test code = 417) IMMATURE GRANULOCYTES-RELATIVE 0 % 0-0 PERCENT (BEAKER) (test code = 2801) POCT-GLUCOSE [id number] 05:05:34 Test Item Value Reference Range Interpretation Comments POC-GLUCOSE METER 109 mg/dL 70-110 : TESTED A T [facility] 1317 (BEAKER) (test code [address], = 1538) [facility] [address]: Head Animal Keeper/Techni corazon ID = [id number] for Matt Lizarraga RAD, CHEST, 1 VIEW, NON [id number] 02:03:00Reason for exam:- >pneumothoraxShould this be performed at the bedside?->Yes [facility] : 1945 Sex: MFINAL REPORT CLINICAL INDICATION: pneumothorax Comparison: Same date at 0 4323 hours Thereis been interval placement of a left subclavian, dual-lead pacemaker. The leads terminate over the right atrium and right ventricle. There is no associated pneumothorax or hematoma. The cardiomediastinal contours are stable. There is no focal consolidation, large pleural effusion or evidence of overt pulmonary edema. Signed: Chintan Avila Verified Date/Time: 01/30/2022 02:03:46 TSH/FREE T4 IF [id number] 21:55:46 Test Item Value Reference Range Interpretation Comments THYROID STIMULATING HORMONE 0.630 uIU/mL 0.350-5.500 ([facility]) (test code = 772) Head Animal Keeper ID - [id number] 17:58:15 Test Item Value Reference Range Interpretation Comments POC-GLUCOSE METER 166 mg/dL 70-110 H : Notified RN/MD: TESTED ([facility]) (test code AT [address] = 1538) [facility] [address]: Head Animal Keeper/Techni corazon ID = [id number] for David h, Lorita POCT-GLUCOSE [id number] 12:17:27 Test Item Value Reference Range Interpretation Comments POC-GLUCOSE METER 114 mg/dL 70-110 H : Notified RN/MD: TESTED ([facility]) (test code AT [facility] [address] PO[address] = 1538) [facility] [id number]: Head Animal Keeper/Techni corazon ID = [id number] for David h, Lorita 2D Echo W/Doppler(CW/PW/Color)2022-01-29 11:02:31Ejection [facility]ractionSLEH [facility]CHO [facility]/Doppler(CW/PW/Color)2022-01-29 11:02:31Ejection FractionSLEH [facility]22[facility]01 07:58:25 Test Item Value Reference Range Interpretation Comments MAGNESIUM (BEAKER) 2.2 mg/dL 1.5-3.0 Specimen slightly (test code = 627) hemolyzed Head Animal Keeper ID - LITOOperator ID - LITOOperator ID - LITOOperator ID - CLARISSA [id number] 07:55:45 Test Item Value Reference Range Interpretation Comments PHOSPHORUS (BEAKER) 3.5 mg/dL 2.5-4.5 Specimen slightly (test code = 604) hemolyzed Head Animal Keeper ID - LITORAD, CHEST, 1 VIEW, NON [id number] 06:12:00Reason for exam:->s/p temporary pacemakerShould this be performed at the bedside?->[facility] : 1945 Sex: MFINAL REPORT EXAM/TECHNIQUE: Single view frontal radiograph of the chest. INDICATION: Pacemaker. COMPARISON: 01/28/2022 FINDINGS: Devices/Objects: IVC approach transvenous pacer terminates inthe expected location of the right ventricle. Lungs: No focal consolidation. No pleural effusion. Nopneumothorax. Heart/Mediastinum: Similar cardiomegaly. Osseous: No acute osseous process. No suspicious osseous lesion. Upper abdomen: Unremarkable. Impression: IVC approach transvenous pacer terminates in the expected location of the right ventricle. Signed: Adriel Lima MDReport Verified Date/Time: 01/29/2022 06:12:36 BASIC METABOLIC [id number] 05:23:24 Test Item Value Reference Range Interpretation Comments SODIUM (BEAKER) 136 meq/L 135-148 (test code = 381) POTASSIUM (BEAKER) 4.2 meq/L 3.6-5.5 Specimen slightly (test code = 379) hemolyzed CHLORIDE (BEAKER) 104 meq/L 98-106 (test code = 382) CO2 (BEAKER) (test 20 meq/L 20-29 code = 355) BLOOD UREA NITROGEN 40 mg/dL 10-26 H (BEAKER) (test code = 354) CREATININE (BEAKER) 1.84 mg/dL 0.50-1.20 H Specimen slightly (test code = 358) hemolyzed GLUCOSE RANDOM 111 mg/dL 70-110 H (BEAKER) (test code = 652) CALCIUM (BEAKER) 8.3 mg/dL 8.5-10.5 L (test code = 697) EGFR (BEAKER) (test 36 mL/min/1.73 ESTIMA TOÑITO GFR IS code = 1092) sq m NOT ACCURATE CREATININE CLEARANCE IN PREDICTING GLOMERULAR FILTRATION RATE . ESTIMATED GFR I S NOT APPLICABLE FOR DIALYSIS PATIEN TS. Head Animal Keeper ID - LITOOperator ID - LITOOperator ID - LITOOperator ID - LITOOperator ID - LITOOperator ID - LITOOperator ID - LITOOperator ID - LITOOperator ID - LITOOperator ID - LITOOperator ID - LITOOperator ID - LITOCBC W/PLT COUNT & AUTO [id number] 05:02:15 Test Item Value Reference Range Interpretation Comments WHITE BLOOD CELL COUNT (BEAKER) 3.8 K/ L 4.0-10.0 L (test code = 775) RED BLOOD CELL COUNT (BEAKER) 3.61 M/ L 4.20-5.80 L (test code = 761) HEMOGLOBIN (BEAKER) (test code = 10.6 GM/DL 13.0-16.8 L 410) HEMATOCRIT (BEAKER) (test code = 32.4 % 36.0-50.0 L 411) MEAN CORPUSCULAR VOLUME (BEAKER) 89.8 fL 82.0-99.0 (test code = 753) MEAN CORPUSCULAR HEMOGLOBIN 29.4 pg 27.0-33.0 (BEAKER) (test code = 751) MEAN CORPUSCULAR HEMOGLOBIN CONC 32.7 GM/DL 32.0-36.0 (BEAKER) (test code = 752) RED CELL DISTRIBUTION WIDTH 14.1 % 12.0-15.0 (BEAKER) (test code = 412) PLATELET COUNT (BEAKER) (test 180 K/CU MM 150-430 code = 756) MEAN PLATELET VOLUME (BEAKER) 11.0 fL 6.0-11.5 (test code = 754) NUCLEATED RED BLOOD CELLS 0 /100 WBC 0-0 (BEAKER) (test code = 413) NEUTROPHILS RELATIVE PERCENT 72 % (BEAKER) (test code = 429) LYMPHOCYTES RELATIVE PERCENT 17 % (BEAKER) (test code = 430) MONOCYTES RELATIVE PERCENT 10 % (BEAKER) (test code = 431) EOSINOPHILS RELATIVE PERCENT 0 % (BEAKER) (test code = 432) BASOPHILS RELATIVE PERCENT 1 % (BEAKER) (test code = 437) NEUTROPHILS ABSOLUTE COUNT 2.74 K/ L 1.80-8.00 (BEAKER) (test code = 670) LYMPHOCYTES ABSOLUTE COUNT 0.64 K/ L 1.48-4.50 L (BEAKER) (test code = 414) MONOCYTES ABSOLUTE COUNT (BEAKER) 0.40 K/ L 0.00-1.30 (test code = 415) EOSINOPHILS ABSOLUTE COUNT 0.01 K/ L 0.00-0.50 (BEAKER) (test code = 416) BASOPHILS ABSOLUTE COUNT (BEAKER) 0.02 K/ L 0.00-0.20 (test code = 417) IMMATURE GRANULOCYTES-RELATIVE 1 % 0-0 H PERCENT (BEAKER) (test code = 2801) POCT-GLUCOSE [id number] 04:44:45 Test Item Value Reference Range Interpretation Comments POC-GLUCOSE METER 117 mg/dL 70-110 H : TESTED A T SLSL 1317 (BEAKER) (test code [facility] [address], = 1538) [facility] 77 [phone]: Head Animal Keeper/Techni corazon ID = [id number] for Matt Lizarraga B-TYPE NATRIURETIC FACTOR (BNP)2022-01-29 00:09:07 Test Item Value Reference Range Interpretation Comments B-TYPE NATRIURETIC PEPTIDE 1353 pg/mL 0-100 H (BEAKER) (test code = 700) Head Animal Keeper ID - LITOTROPONIN [id number] 00:07:49 Test Item Value Reference Range Interpretation Comments TROPONIN I (BEAKER) (test code = 0.13 ng/mL 0.00-0.15 397) Troponin I (TnI) levels must be interpreted in the context of the presenting symptoms and the clinical findings. Elevated TnI levels indicate myocardial damage, but are not specific for ischemic heart disease. Elevated TnI levels are seen in patients with other cardiac conditions (including myocarditis and congestive heart failure), and slight TnI elevations occur in patients with other conditions, including sepsis, renal failure, acidosis, acute neurological disease, and persistent tachyarrhythmia.Head Animal Keeper ID - [id number] 23:59:45 Test Item Value Reference Range Interpretation Comments PROTIME (BEAKER) (test 11.7 seconds 9.3-12.0 Final Information code = 759) (Auto Output) INR (BEAKER) (test 1.07 See_Comment Final Inf ormation code = 370) (Auto Output) [Automated mess age] The system [employer] generated this result transmit toñito reference range : <=5.90. The reference range was not used to interpret this result as normal/abnormal . PARTIAL THROMBOPLASTIN 31.0 seconds 23.0-35.0 Final Information TIME (BEAKER) (test (Auto Ou tput) code = 760) RECOMMENDED COUMADIN/WARFARIN INR THERAPY RANGESSTANDARD DOSE: 2.0 - 3.0 Includes: PROPHYLAXIS for venous thrombosis, systemic embolization; TREATMENT for venous thrombosis and/or pulmonary embolus.HIGH RISK: Target INR is 2.5-3.5 for patients with mechanical heart valves.T4, [id number] 20:18:48 Test Item Value Reference Range Interpretation Comments FREE T4 (BEAKER) (test code = 655) 1.10 ng/dL 0.90-1.80 Head Animal Keeper ID - [id number] 20:18:09 Test Item Value Reference Range Interpretation Comments THYROID STIMULATING HORMONE 0.720 uIU/mL 0.350-5.500 (BEAKER) (test code = 772) Head Animal Keeper ID - [id number], CHEST, 1 VIEW, NON [id number] 19:32:00Reason for exam:->Baseline CXRShould this be performed at the bedside?->Yes [facility] : 1945 Sex: MFINAL REPORT Chest, 1 view. History: Baseline. Comparison: None available. IMPRESSION: Post surgical changes from median sternotomy noted. The trachea is midline. The lungs are symmetrically expanded without evidence of focal consolidation, pneumothorax, or significant pleural effusion. The c ardiomediastinal silhouette appears prominent which may be partially due to technique. The pulmonaryvasculature is within normal limits. No acute osseous abnormalities identified. Signed: Luis Manuel Dolan MDReport Verified Date/Time: 01/28/2022 19:32:54 Reading Location: [address] Consult Reading Room MAGNESIUM 2022-01-28 18:56:55 Test Item Value Reference Range Interpretation Comments MAGNESIUM (BEAKER) (test code = 2.4 mg/dL 1.5-3.0 627) Head Animal Keeper ID - [id number] ID - [id number] ID - [id number] ID - [id number] FUNCTION [id number] 18:56:50 Test Item Value Reference Range Interpretation Comments TOTAL PROTEIN (BEAKER) (test code = 6.8 gm/dL 6.0-8.5 770) ALBUMIN (BEAKER) (test code = 1145) 3.7 g/dL 3.5-5.0 BILIRUBIN TOTAL (BEAKER) (test code 0.5 mg/dL 0.1-1.2 = 377) BILIRUBIN DIRECT (BEAKER) (test 0.2 mg/dL 0.0-0.4 code = 706) ALKALINE PHOSPHATASE (BEAKER) (test 102 U/L 30-115 code = 346) AST (SGOT) (BEAKER) (test code = 21 U/L 5-40 353) ALT (SGPT) (BEAKER) (test code = 22 U/L 5-50 347) Head Animal Keeper ID - [id number] ID - [id number] ID - [id number] ID - [id number] ID - [id number] ID - [id number] ID - [id number] METABOLIC [id number] 18:55:44 Test Item Value Reference Range Interpretation Comments SODIUM (BEAKER) 137 meq/L 135-148 (test code = 381) POTASSIUM (BEAKER) 4.2 meq/L 3.6-5.5 (test code = 379) CHLORIDE (BEAKER) 105 meq/L 98-106 (test code = 382) CO2 (BEAKER) (test 21 meq/L 20-29 code = 355) BLOOD UREA NITROGEN 43 mg/dL 10-26 H (BEAKER) (test code = 354) CREATININE (BEAKER) 1.63 mg/dL 0.50-1.20 H (test code = 358) GLUCOSE RANDOM 110 mg/dL 70-110 (BEAKER) (test code = 652) CALCIUM (BEAKER) 8.2 mg/dL 8.5-10.5 L (test code = 697) EGFR (BEAKER) (test 41 mL/min/1.73 ESTIMA TOÑITO GFR IS code = 1092) sq m NOT ACCURATE CREATININE CLEARANCE IN PREDICTING GLOMERULAR FILTRATION RATE . ESTIMATED GFR I S NOT APPLICABLE FOR DIALYSIS PATIEN TS. Head Animal Keeper ID - [id number] ID - [id number] ID - [id number] ID - [id number] ID - [id number] ID - [id number] ID - [id number] ID - [id number] ID - [id number] ID - [id number] 18:53:30 Test Item Value Reference Range Interpretation Comments PHOSPHORUS (BEAKER) (test code = 3.3 mg/dL 2.5-4.5 604) Head Animal Keeper ID - [id number] W/PLT COUNT & AUTO [id number] 18:45:32 Test Item Value Reference Range Interpretation Comments WHITE BLOOD CELL COUNT (BEAKER) 4.4 K/ L 4.0-10.0 (test code = 775) RED BLOOD CELL COUNT (BEAKER) 3.52 M/ L 4.20-5.80 L (test code = 761) HEMOGLOBIN (BEAKER) (test code = 10.3 GM/DL 13.0-16.8 L 410) HEMATOCRIT (BEAKER) (test code = 31.6 % 36.0-50.0 L 411) MEAN CORPUSCULAR VOLUME (BEAKER) 89.8 fL 82.0-99.0 (test code = 753) MEAN CORPUSCULAR HEMOGLOBIN 29.3 pg 27.0-33.0 (BEAKER) (test code = 751) MEAN CORPUSCULAR HEMOGLOBIN CONC 32.6 GM/DL 32.0-36.0 (BEAKER) (test code = 752) RED CELL DISTRIBUTION WIDTH 14.2 % 12.0-15.0 (BEAKER) (test code = 412) PLATELET COUNT (BEAKER) (test 178 K/CU MM 150-430 code = 756) MEAN PLATELET VOLUME (BEAKER) 10.7 fL 6.0-11.5 (test code = 754) NUCLEATED RED BLOOD CELLS 0 /100 WBC 0-0 (BEAKER) (test code = 413) NEUTROPHILS RELATIVE PERCENT 72 % (BEAKER) (test code = 429) LYMPHOCYTES RELATIVE PERCENT 15 % (BEAKER) (test code = 430) MONOCYTES RELATIVE PERCENT 12 % (BEAKER) (test code = 431) EOSINOPHILS RELATIVE PERCENT 1 % (BEAKER) (test code = 432) BASOPHILS RELATIVE PERCENT 0 % (BEAKER) (test code = 437) NEUTROPHILS ABSOLUTE COUNT 3.14 K/ L 1.80-8.00 (BEAKER) (test code = 670) LYMPHOCYTES ABSOLUTE COUNT 0.66 K/ L 1.48-4.50 L (BEAKER) (test code = 414) MONOCYTES ABSOLUTE COUNT (BEAKER) 0.52 K/ L 0.00-1.30 (test code = 415) EOSINOPHILS ABSOLUTE COUNT 0.03 K/ L 0.00-0.50 (BEAKER) (test code = 416) BASOPHILS ABSOLUTE COUNT (BEAKER) 0.01 K/ L 0.00-0.20 (test code = 417) IMMATURE GRANULOCYTES-RELATIVE 0 % 0-0 PERCENT (BEAKER) (test code = 2801) HEMOGLOBIN [id number] 18:45:10 Test Item Value Reference Range Interpretation Comments HEMOGLOBIN A1C (ANA PAULA) (test code = 6.2 % 4.3-6.1 H 368) Head Animal Keeper ID - [id number]
--- NOTE | 2022-06-17 12:10 | RAD REPORT ---
EXAM DESCRIPTION: RAD - Chest Single View - 06/17/2022 11:56 am CLINICAL HISTORY: DYSPNEA Chest pain. COMPARISON: Chest Single View dated 01/26/2022; Chest Pa And Lat (2 Views) dated 09/26/2019; Chest Sin gle View dated 02/22/2017; CHEST PA AND LAT 2 VIEW dated 12/05/2012 FINDINGS: Portable technique limits examination quality. Mild interstitial pulmonary edema. Trace bilateral pleural effusions. The heart is moderately enlarge d with sternotomy wires present. No displaced fractures.Multi lead pacer device. IMPRESSION: Mild CHF.
[2022-06-17 12:20] LABS: Absolute Lymphocytes (CBC) 0.4 K/uL (0.7-4.9); Hematocrit 35.6 % (39.6-49.0); Lymphocytes % 5.8 % (15.3-44.8); MCV 81.6 fL (80-100); MPV 8.4 fL (7.6-11.3); RBC Red Blood Cell Count 4.36 M/uL (4.33-5.43)
[2022-06-17 12:27] LABS: Protime INR 1.29
[2022-06-17 12:46] LABS: Albumin 3.4 g/dL (3.4-5.0); Bilirubin Total 0.9 mg/dL (0.2-1.0); Potassium 3.9 mmol/L (3.5-5.1); Protein, Total 7.8 g/dL (6.4-8.2)
[2022-06-17 12:48] LABS: Troponin High Sensitivity 103.7 pg/mL (<58.9)
--- NOTE | 2022-06-17 13:24 | RAD REPORT ---
EXAM DESCRIPTION: US - Extrem Venous W Compress Aries - 06/17/2022 1:00 pm CLINICAL HISTORY: Pain COMPARISON: <Comparisons> TECHNIQUE: Real-time sonographic evaluation of the lower extremity deep venous systems was performed using color Doppler, grayscale, and compression. FINDINGS: Bilateral lower extremities. Normal compressibility, flow augmentation, phasic flow and spontaneous flow is identified in both the left and right lower extremity deep venous systems. No intraluminal filling defects seen. IMPRESSION: No DVT in either lower extremity.
--- NOTE | 2022-06-17 14:29 | ER ---
Nurse's Notes [facility] Name: Phi Cunningham Jr Age: 77 yrs Sex: Male : 1945 Arrival Date: 06/17/2022 Time: 11:01 Bed 24 Private MD: Joe Daniel E Diagnosis: Acute pulmonary edema;Elevated troponin;Unspecified combined systolic (congestive) and diastolic (congestive) heart failure Presentation: 06/17 11:17 Chief complaint: Patient states: Leg swelling x 2 weeks, having trouble moving around kr3 because of the swelling and tenderness was given antibiotic 6 days ago from Mrs. Dia PCP. The swelling has not improved since. Coronavirus screen: Vaccine status: Patient reports being unvaccinated. Client denies travel out of the [place] in the last 14 days. Ebola Screen: Patient denies travel to an Ebola-affected area in the 21 days before illness onset. Initial Sepsis Screen: Does the patient meet any 2 criteria? No. Patient's initial sepsis screen is negative. Does the patient have a suspected source of infection? No. Patient's initial sepsis screen is negative. Risk Assessment: Do you want to hurt yourself or someone else? Patient reports no desire to harm self or others. Onset of symptoms was June 03, 2022. 11:17 Method Of Arrival: Wheelchair kr3 11:17 Acuity: SAUL 3 kr3 Triage Assessment: 11:24 General: Appears in no apparent distress. uncomfortable, Behavior is calm, cooperative, kr3 appropriate for age. Pain: Complains of pain in right leg and left leg. 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 - Social history:: Smoking status: Patient denies any tobacco usage or history of. Screenin:49 Abuse screen: Denies threats or abuse. Denies injuries from another. Nutritional kc6 screening: No deficits noted. Tuberculosis screening: No symptoms or risk factors identified. Assessment: 12:17 General: Appears in no apparent distress. comfortable, Behavior is calm, cooperative, kc6 appropriate for age. Pain: Complains of pain in left hurst Pain does not radiate. Pain currently is 9 out of 10 on a pain scale. Quality of pain is described as sharp, shooting, Pain began two weeks ago Is intermittent, Alleviated by rest, Aggravated by increased activity, repositioning, weight bearing, Noted to be grimacing, moaning, Also complains of no other associated symptoms. Neuro: Rodriguez Agitation-Sedation Scale (RASS): 0 - Alert and Calm Level of Consciousness is awake, alert, obeys commands, Oriented to person, place, time, situation, Appropriate for age. Cardiovascular: Heart tones S1 S2 present Capillary refill < 3 seconds. Respiratory: Airway is patent Trachea midline Respiratory effort is even, unlabored, Respiratory pattern is regular, symmetrical, Breath sounds are clear bilaterally. GI: No signs and/or symptoms were reported involving the gastrointestinal system. : No signs and/or symptoms were reported regarding the genitourinary system. EENT: No signs and/or symptoms were reported regarding the EENT system. 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 Derm: Skin is intact, with poor turgor Skin is pink, warm \T\ dry. Wound noted left hurst Other: with blistering. Musculoskeletal: Circulation, motion, and sensation intact. Capillary refill < 3 seconds, Range of motion: intact in all extremities, Swelling present in left hurst. 13:17 Reassessment: Patient appears in no apparent distress at this time. No changes from kc6 previously documented assessment. Patient and/or family updated on plan of care and expected duration. Pain level reassessed. Patient is alert, oriented x 3, equal unlabored respirations, skin warm/dry/pink. 14:17 Reassessment: Patient appears in no apparent distress at this time. No changes from kc6 previously documented assessment. Patient and/or family updated on plan of care and expected duration. Pain level reassessed. Patient is alert, oriented x 3, equal unlabored respirations, skin warm/dry/pink. 15:17 Reassessment: Patient appears in no apparent distress at this time. No changes from kc6 previously documented assessment. Patient and/or family updated on plan of care and expected duration. Pain level reassessed. Patient is alert, oriented x 3, equal unlabored respirations, skin warm/dry/pink. friend at bedside. 16:09 Reassessment: Patient appears in no apparent distress at this time. No changes from kc6 previously documented assessment. Patient and/or family updated on plan of care and expected duration. Pain level reassessed. Patient is alert, oriented x 3, equal unlabored respirations, skin warm/dry/pink. 17:09 Reassessment: Patient appears in no apparent distress at this time. No changes from kc6 previously documented assessment. Patient and/or family updated on plan of care and expected duration. Pain level reassessed. Patient is alert, oriented x 3, equal unlabored respirations, skin warm/dry/pink. Vital Signs: 11:17 BP 134 / 80; Pulse 97; Resp 18; Temp 97.8(O); Pulse Ox 96% ; Weight 65.77 kg; Height 5 kr3 ft. 3 in. (160.02 cm); Pain 9/10; 12:16 BP 138 / 81; Pulse 93; Resp 18 S; Temp 98.7(O); Pulse Ox 95% on R/A; kc6 13:50 BP 132 / 85; Pulse 89; Resp 18 S; Pulse Ox 95% on R/A; kc6 14:50 BP 147 / 89; Pulse 97; Resp 18 S; Pulse Ox 94% on R/A; kc6 15:17 BP 135 / 85; Pulse 91; Resp 18 S; Pulse Ox 92% on R/A; kc6 16:09 BP 132 / 85; Pulse 86; Resp 16 S; Pulse Ox 93% on R/A; kc6 17:09 BP 129 / 82; Pulse 83; Resp 16 S; Pulse Ox 92% on R/A; kc6 11:17 Body Mass Index 25.69 (65.77 kg, 160.02 cm) kr3 ED Course: 11:01 Patient arrived in ED. am2 11:01 Joe Daniel MD is Private Physician. am2 11:22 Triage completed. kr3 11:25 Arm band placed on right wrist. kr3 11:28 [facility]C [facility] kb 11:28 Tomas Jimenez MD is Attending Physician. kb 11:31 Patient placed in an exam room, on a stretcher. ll1 11:42 Alize Coffey, [place] is Primary Nurse. kc6 11:59 XRAY Chest (1 view) In Process Unspecified. EDMS 12:16 Inserted saline lock: 20 gauge in left antecubital area, using aseptic technique. Blood kc6 collected. 13:02 US Extremity Venous W Compression Aries In Process Unspecified. EDMS 14:27 Joshua Menchaca is Hospitalizing Provider. kb 17:40 SARS RAPID Sent. kc6 19:09 Primary Nurse role handed off by Alize Coffey, RN mw2 22:54 Milana Cesar, [place] is Primary Nurse. ll3 06/18 08:37 Primary Nurse role handed off by Milana Cesar RN eb Administered Medications: 06/17 15:05 Drug: Lasix (furosemide) 20 mg Route: IVP; Site: left antecubital; kc6 16:14 Follow up: Response: No adverse reaction kc6 15:05 Drug: morphine 4 mg Route: IVP; Infused Over: 4 mins; Site: left antecubital; kc6 16:13 Follow up: Response: No adverse reaction; Pain is decreased; RASS: Alert and Calm (0) kc6 15:05 Drug: Zofran (Ondansetron) 4 mg Route: IVP; Site: left antecubital; kc6 16:13 Follow up: Response: No adverse reaction; Nausea is decreased kc6 16:22 Drug: NS 0.9% 500 ml Route: IV; Rate: bolus; Site: left antecubital; ll1 17:22 Follow up: Response: No adverse reaction; IV Status: Completed infusion; IV Intake: kc6 500ml Medication: 06/18 00:12 VIS not applicable for this client. ll3 Intake: 06/17 17:22 IV: 500ml; Total: 500ml. kc6 Outcome: 14:28 Decision to Hospitalize by Provider. kb 06/18 11:12 Patient left the ED. eb Signatures: Dispatcher [employer] EDMS Marion Marino FNP-C [employer]IAN-Erika Rushing am2 Kanwal Infante mw2 Shoshana Gandhi eb Shawnee Olsen, [place] RN ll1 Milana Cesar, [place] RN ll3 Tamara Aleman RN RN kr3 Alize Coffey, RN RN kc6 Corrections: (The following items were deleted from the chart) 06/17 11:25 11:25 EKG completed in triage. Results shown to . azeem gann 11:25 11:25 EKG completed in triage. Results shown to . kr3 kr3
--- NOTE | 2022-06-17 14:29 | EDPHYS ---
Physician Documentation [facility] Name: Phi Cunningham Jr Age: 77 yrs Sex: Male : 1945 Arrival Date: 06/17/2022 Time: 11:01 Bed 24 Private MD: Joe Daniel E ED Physician Tomas Jimenez HPI: 06/17 17:46 This 77 yrs old Male presents to ER via Wheelchair with complaints of Leg kb Swelling. 17:46 The patient presents with swelling. The complaints affect the right leg and left leg. kb Context: the patient can fully bear weight, must have assistance. The patient has not recently seen a physician. 17:47 Onset: The symptoms/episode began/occurred 2 week(s) ago. Modifying factors: The kb symptoms are alleviated by nothing. the symptoms are aggravated by weight bearing. Associated signs and symptoms: Pertinent positives: swelling, Pertinent negatives calf tenderness, fever, nausea, numbness, rash, tingling, vomiting, warmth, weakness. Treatment prior to arrival includes: no previous treatment. Severity of symptoms: At their worst the symptoms were moderate, in the emergency department the symptoms are unchanged. The patient has not experienced similar symptoms in the past. Pt reports swelling to legs for 2 weeks that is causing him pain and trouble with his ADLs. Reports shortness of breath on exertion. 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 - Social history:: Smoking status: Patient denies any tobacco usage or history of. ROS: 17:44 Constitutional: Negative for fever, chills, and weight loss. kb 17:44 Cardiovascular: Positive for edema. 17:44 Respiratory: Positive for dyspnea on exertion. 17:44 All other systems are negative. Exam: 17:45 Constitutional: This is a well developed, well nourished patient who is awake, alert, kb and in no acute distress. Head/Face: Normocephalic, atraumatic. ENT: Moist Mucous membranes Cardiovascular: Regular rate and rhythm with a normal S1 and S2. No gallops, murmurs, or rubs. No pulse deficits. Respiratory: Respirations even and unlabored. No increased work of breathing. Talking in full sentences Abdomen/GI: Soft, non-tender. No distention Skin: Warm, dry with normal turgor. Normal color. Neuro: Awake and alert, GCS 15, oriented to person, place, time, and situation. Moves all extremities. Normal gait. Psych: Awake, alert, with orientation to person, place and time. Behavior, mood, and affect are within normal limits. 17:45 Musculoskeletal/extremity: Extremities: grossly normal except: noted in the left leg and right leg: swelling, ROM: intact in all extremities, Circulation is intact in all extremities. Sensation intact. Weight bearing: can bear weight with assistance only. Vital Signs: 11:17 BP 134 / 80; Pulse 97; Resp 18; Temp 97.8(O); Pulse Ox 96% ; Weight 65.77 kg; Height 5 kr3 ft. 3 in. (160.02 cm); Pain 9/10; 12:16 BP 138 / 81; Pulse 93; Resp 18 S; Temp 98.7(O); Pulse Ox 95% on R/A; kc6 13:50 BP 132 / 85; Pulse 89; Resp 18 S; Pulse Ox 95% on R/A; kc6 14:50 BP 147 / 89; Pulse 97; Resp 18 S; Pulse Ox 94% on R/A; kc6 15:17 BP 135 / 85; Pulse 91; Resp 18 S; Pulse Ox 92% on R/A; kc6 16:09 BP 132 / 85; Pulse 86; Resp 16 S; Pulse Ox 93% on R/A; kc6 17:09 BP 129 / 82; Pulse 83; Resp 16 S; Pulse Ox 92% on R/A; kc6 11:17 Body Mass Index 25.69 (65.77 kg, 160.02 cm) kr3 MDM: 11:28 Patient medically screened. kb 17:45 Data reviewed: vital signs, nurses notes. Data interpreted: Pulse oximetry: on room air kb is 92 %. Interpretation: normal. Counseling: I had a detailed discussion with the patient and/or guardian regarding: the historical points, exam findings, and any diagnostic results supporting the discharge/admit diagnosis, lab results, radiology results, the need for further work-up and treatment in the hospital. Physician consultation: Joshua Menchaca regarding admission, to the telemetry unit. patient's condition, and will see patient in ED. 06/17 11:40 Order name: CBC with Diff; Complete Time: 12:28 kb 06/17 11:40 Order name: NT PRO-BNP; Complete Time: 13:15 kb 06/17 11:40 Order name: PT-INR; Complete Time: 12:28 kb 06/17 11:40 Order name: Troponin HS; Complete Time: 13:15 kb 06/17 11:40 Order name: CMP; Complete Time: 13:15 kb 06/17 11:40 Order name: Blood Culture Adult (2) kb 06/17 11:40 Order name: Lactate w/ 2H reflex if indic.; Complete Time: 12:47 kb 06/17 16:06 Order name: Lactate Sepsis 2 HR Follow-up; Complete Time: 16:09 EDMS 06/17 16:55 Order name: SARS RAPID eb 06/17 18:04 Order name: SARS-COV-2 Antigen Rapid; Complete Time: 18:08 EDMS 06/17 21:09 Order name: Glucose, Ancillary Testing EDMS 06/17 21:21 Order name: Troponin High Sensitivity EDMS 06/17 23:47 Order name: Troponin High Sensitivity EDMS 06/18 05:21 Order name: CBC with Automated Diff EDMS 06/17 11:40 Order name: XRAY Chest (1 view); Complete Time: 12:14 kb 06/17 11:40 Order name: EKG; Complete Time: 11:41 kb 06/17 11:40 Order name: Cardiac monitoring; Complete Time: 11:46 kb 06/17 11:40 Order name: EKG - Nurse/Tech; Complete Time: 11:46 kb 06/17 11:40 Order name: IV Saline Lock; Complete Time: 12:15 kb 06/17 11:40 Order name: Labs collected and sent; Complete Time: 12:15 kb 06/17 11:40 Order name: O2 Per Protocol; Complete Time: 11:43 kb 06/17 11:40 Order name: US Extremity Venous W Compression Aries; Complete Time: 13:28 kb 06/18 05:37 Order name: Basic Metabolic Panel EDMS 06/18 05:37 Order name: Phosphorus EDMS 06/18 05:37 Order name: Magnesium EDMS 06/18 08:37 Order name: Glucose, Ancillary Testing EDMS 06/17 11:40 Order name: O2 Sat Monitoring; Complete Time: 11:43 kb Administered Medications: 15:05 Drug: Lasix (furosemide) 20 mg Route: IVP; Site: left antecubital; kc6 16:14 Follow up: Response: No adverse reaction kc6 15:05 Drug: morphine 4 mg Route: IVP; Infused Over: 4 mins; Site: left antecubital; kc6 16:13 Follow up: Response: No adverse reaction; Pain is decreased; RASS: Alert and Calm (0) kc6 15:05 Drug: Zofran (Ondansetron) 4 mg Route: IVP; Site: left antecubital; kc6 16:13 Follow up: Response: No adverse reaction; Nausea is decreased kc6 16:22 Drug: NS 0.9% 500 ml Route: IV; Rate: bolus; Site: left antecubital; ll1 17:22 Follow up: Response: No adverse reaction; IV Status: Completed infusion; IV Intake: kc6 500ml Disposition Summary: 06/17/22 14:28 Hospitalization Ordered Hospitalization Status: Observation kb Provider: Joshua Menchaca Condition: Stable kb Problem: new kb Symptoms: are unchanged kb Bed/Room Type: Standard Location: Telemetry/MedSurg (observation)(06/18/22 09:23) Room Assignment: [facility](06/18/22 09:23) eb Diagnosis - Acute pulmonary edema kb - Elevated troponin kb - Unspecified combined systolic (congestive) and diastolic (congestive) heart failure artemio Forms: - Medication Reconciliation Form kb - SBAR form kb Addendum: 06/20/2022 13:31 Co-signature as Attending Physician, Tomas Jimenez MD I agree with the assessment and c giraldo plan of care. Signatures: Dispatcher [employer] EDMarion Dickey, MARY ELLEN-C DISPLAY FABRICATOR-Ckb Tomas Jimenez MD MD cha Garcia, Cindy, RN RN Shoshana Villafana Lynsay, RN RN ll1 Tamara Aleman RN RN kr3 Alize Coffey RN RN kc6 Corrections: (The following items were deleted from the chart) 06/17 21:43 14:28 Telemetry/MedSurg (observation) kb :43 14:28 kb 06/18 06/17 21:43 [facility] ER HOLD cg eb 06/18 21:43 ERHOLD- cg eb
[2022-06-17] MEDS ORDERED: MORPHINE 4 MG/ML SYR ONE (14:50)
[2022-06-17] MEDS ORDERED: ONDANSETRON 4 MG/2 ML VIAL ONE (14:50)
[2022-06-17] MEDS ORDERED: FUROSEMIDE 20 MG/ 2ML VIAL ONE (14:50)
--- NOTE | 2022-06-17 17:00 | P.HP ---
Certification for Inpatient Patient admitted to: Inpatient With expected LOS: >2 Midnights Practitioner: I am a practitioner with admitting privileges, knowledge of patient current condition, hospital course, and medical plan of care. Services: Services provided to patient in accordance with Admission requirements found in Title 42 Section 412.3 of the Code of Federal Regulations Patient History Date of Service: 06/17/22 Reason for admission: Bilateral leg swelling History of Present Illness: 77 gentleman with a history of heart failure, hypertension and diabetes presented to the emergency department with complaint of progressive swelling of bilateral lower extremities of 2 weeks duration. Symptoms associated with increasing pain. Patient also reports shortness of breath and orthopnea. Symptoms did not improve with antibiotics prescribed by his PCP. In the ED, chest x-ray demonstrated mild pulmonary edema. Patient has bilateral lower extremity edema which are tender to touch. Troponin mildly elevated, BNP elevated. Patient is hospitalized for further management of CHF exacerbation. Allergies No Known Drug Allergies Allergy (Verified 02/18/17 10:37) Unknown No Known Vicente Allergy (Uncoded 02/22/17 18:35) Unknown Home Medications: Durezol 0.05% 1 gtt OPTH BID 12/05/12 cloNIDine HCL [Catapres*] 0.1 mg PO BID 12/05/12 Atorvastatin Calcium [Lipitor*] 20 mg PO BEDTIME #30 tab 12/08/12 Clopidogrel Bisulfate [Plavix*] 75 mg PO DAILY #30 tablet 12/08/12 Levothyroxine [Synthroid*] 0.075 mg PO DAILY 01/25/17 Metformin HCl [Glucophage] 500 mg PO DAILY WITH BREAKFAST 01/25/17 Metoprolol/Hydrochlorothiazide [Metoprolol-Hctz 50-25 mg Tab] 50 mg PO DAILY 01/25/17 - Past Medical/Surgical History Diabetic: Yes -: DM 2 -: HLD -: HTN -: Hypothyroidism -: [place] 1999 -: cardiac bypass 1999 - Social History Alcohol use: No CD- Drugs: No Caffeine use: No Place of Residence: Home Review of Systems Other: He denied any chest pain. He denied any nausea or vomiting, he denied any diarrhea. Except as documented, all other systems reviewed and negative. Physical Examination - Physical Exam General: Alert, In no apparent distress, Oriented x3 HEENT: Normocephalic, Mucous membr. moist/pink, Sclerae nonicteric Neck: Supple, JVD not distended Respiratory: Clear to auscultation bilaterally, Normal air movement Cardiovascular: Regular rate/rhythm, Normal S1 S2, Edema Capillary refill: <2 Seconds Gastrointestinal: Normal bowel sounds, Soft and benign, Non-distended, No tenderness Musculoskeletal: Swelling (Bilateral leg), Tenderness (Bilateral legs) Integumentary: Other (Bilateral lower extremity venous stasis dermatitis, worse on the left.) Neurological: Normal speech, Normal strength at 5/5 x4 extr, Cranial nerves 3-12 intact Lymphatics: No axilla or inguinal lymphadenopathy - Studies Laboratory Data (last 24 hrs) 06/17/22 12:07: PT 14.2 H, INR 1.29 06/17/22 12:07: Sodium 142, Potassium 3.9, BUN 36 H, Creatinine 1.69 H, Glucose 117 H, Total Bilirubin 0.9, AST 39 H, ALT 27, Alkaline Phosphatase 150 H 06/17/22 12:07: WBC 7.10, Hgb 11.4 L, Hct 35.6 L, Plt Count 254 Assessment and Plan - Problems (Diagnosis) (1) Acute diastolic heart failure Current Visit: Yes Status: Acute (2) History of heart block Current Visit: Yes Status: Acute (3) Diabetes mellitus Current Visit: No Status: Active (4) Hypertension Current Visit: Yes Status: Acute (5) Elevated troponin Current Visit: Yes Status: Acute - Plan Admit patient to the medical floor. Treat CHF exacerbation with IV Lasix. Obtain echocardiogram Insulin sliding scale for glucose management. Hold metformin Fluid restriction Keep lower extremities elevated. I doubt patient has cellulitis. Activity as tolerated. PT consult ADA diet. Monitor and optimize electrolytes. Elevated troponin likely secondary to demand ischemia. Trend troponin. - Advance Directives Does patient have a Living Will: No Does patient have a Durable POA for Healthcare: No
[2022-06-17 18:04] LABS: SARS-CoV-2 Antigen Rapid Res Negative (Negative)
[2022-06-17] MEDS ORDERED: D50W 25 GM/50 ML SYRINGE IV PRN (19:32)
[2022-06-17] MEDS: FUROSEMIDE 40 MG/4 ML VIAL IV SCH (19:32)
[2022-06-17] MEDS ORDERED: ONDANSETRON 4 MG/2 ML VIAL IV PRN (19:32)
[2022-06-17] MEDS ORDERED: ACETAMINOPHEN 500 MG TAB PO PRN (19:32)
[2022-06-17] MEDS ORDERED: GLUCAGON 1 MG/VIAL IM PRN (19:32)
[2022-06-17] MEDS ORDERED: ALBUTEROL 2.5 MG/3 ML NEB SOL NEB PRN (19:32)
[2022-06-17] MEDS: INSULIN -REGULAR HUMAN 50 UNIT/0.5 ML ML SQ SCH (21:00)
[2022-06-18 05:15] LABS: Absolute Lymphocytes (CBC) 0.6 K/uL (0.7-4.9); Hematocrit 32.8 % (39.6-49.0); Lymphocytes % 10.9 % (15.3-44.8); MCV 82.6 fL (80-100); MPV 8.6 fL (7.6-11.3); RBC Red Blood Cell Count 3.97 M/uL (4.33-5.43)
[2022-06-18 05:36] LABS: Magnesium 2.3 mg/dL (1.8-2.4); Phosphorus 3.3 mg/dL (2.5-4.9); Potassium 3.8 mmol/L (3.5-5.1)
[2022-06-18] MEDS ORDERED: HYDROCODONE/APAP 5/325 MG TAB ONE (06:16)
[2022-06-18] MEDS: HYDROCODONE/APAP 5/325 MG TAB PO PRN (06:18)
[2022-06-18 06:40] VITALS: BMI 25.4
[2022-06-18] MEDS: INSULIN -REGULAR HUMAN 50 UNIT/0.5 ML ML SQ SCH ×4 (07:30→21:00)
[2022-06-18] MEDS ORDERED: ENOXAPARIN 40 MG/0.4 ML SQ ONE (08:12)
[2022-06-18] MEDS ORDERED: FUROSEMIDE 40 MG TABLET ONE (08:12)
[2022-06-18] MEDS: ENOXAPARIN 40 MG/0.4 ML SQ SCH (09:00)
[2022-06-18] MEDS: FUROSEMIDE 40 MG/4 ML VIAL IV SCH ×2 (09:00→16:31)
[2022-06-18] MEDS ORDERED: POTASSIUM CL SA 10 MEQ TAB PO ONE (09:50)
[2022-06-18] MEDS ORDERED: MORPHINE 2 MG/ML SYR IV PRN (12:41)
--- NOTE | 2022-06-18 12:52 | P.PN ---
Subjective Date of Service: 06/18/22 Chief Complaint: Bilateral leg swelling Patient is complaining of pain all over. Patient's lower extremity edema has improved. Physical Examination - Vital Signs Temperature: 98.2 F Blood Pressure: 135/80 Pulse: 87 Respirations: 18 Pulse Ox (%): 98 - Studies Laboratory Data (last 24 hrs) 06/17/22 12:07: Sodium 142, Potassium 3.9, BUN 36 H, Creatinine 1.69 H, Glucose 117 H, Total Bilirubin 0.9, AST 39 H, ALT 27, Alkaline Phosphatase 150 H Assessment And Plan - Current Problems (Diagnosis) (1) Acute diastolic heart failure Current Visit: Yes Status: Acute (2) History of heart block Current Visit: Yes Status: Acute (3) Diabetes mellitus Current Visit: No Status: Active (4) Hypertension Current Visit: Yes Status: Acute (5) Elevated troponin Current Visit: Yes Status: Acute - Plan Physical Exam General: Alert, In mild distress due to pain, oriented x3 Neck: Supple, JVD not distended Respiratory: Clear to auscultation bilaterally, Normal air movement Cardiovascular: Regular rate/rhythm, Normal S1 S2, Edema Gastrointestinal: Normal bowel sounds, Soft and benign, Non-distended, No tenderness Musculoskeletal: Swelling -Bilateral legs, Tenderness-Bilateral legs Integumentary: Bilateral lower extremity venous stasis dermatitis, worse on the left. Edema improved compared to yesterday. Neurological: Normal speech, Normal strength at 5/5 x4 ext Plan: Continue IV Lasix for CHF Echocardiogram is pending. Pain management with [place] and IV morphine Insulin sliding scale for glucose management. Metformin is on hold Keep lower extremities elevated. I doubt patient has cellulitis. Activity as tolerated. PT consult ADA diet. Monitor and optimize electrolytes. Elevated troponin likely secondary to demand ischemia. Troponin trended flat.
[2022-06-18] MEDS ORDERED: ALBUTEROL 2.5 MG/3 ML NEB SOL NEB PRN (14:00)
[2022-06-19 04:44] LABS: Absolute Lymphocytes (CBC) 0.6 K/uL (0.7-4.9); Hematocrit 35.1 % (39.6-49.0); Lymphocytes % 10.6 % (15.3-44.8); MCV 82.2 fL (80-100); MPV 8.7 fL (7.6-11.3); RBC Red Blood Cell Count 4.26 M/uL (4.33-5.43)
[2022-06-19] MEDS: INSULIN -REGULAR HUMAN 50 UNIT/0.5 ML ML SQ SCH ×4 (07:30→20:27)
[2022-06-19] MEDS: FUROSEMIDE 40 MG/4 ML VIAL IV SCH ×2 (08:30→16:29)
[2022-06-19] MEDS: ENOXAPARIN 40 MG/0.4 ML SQ SCH (08:31)
--- NOTE | 2022-06-19 12:50 | P.PN ---
Subjective Date of Service: 06/19/22 Chief Complaint: Bilateral leg swelling Patient states he is feeling better today. He was seen sitting in a wheelchair. He is saturating well on room air. Physical Examination - Vital Signs Temperature: 97.5 F Blood Pressure: 113/76 Pulse: 79 Respirations: 16 Pulse Ox (%): 99 Assessment And Plan - Current Problems (Diagnosis) (1) Acute diastolic heart failure Current Visit: Yes Status: Acute (2) History of heart block Current Visit: Yes Status: Acute (3) Diabetes mellitus Current Visit: No Status: Active (4) Hypertension Current Visit: Yes Status: Acute (5) Elevated troponin Current Visit: Yes Status: Acute - Plan Physical Exam General: Alert, NAD, oriented x3 Neck: Supple, JVD not distended Respiratory: Clear to auscultation bilaterally, Normal air movement Cardiovascular: Regular rate/rhythm, Normal S1 S2, Edema Gastrointestinal: Normal bowel sounds, Soft and benign, Non-distended, No tenderness Musculoskeletal: Swelling -Bilateral legs, no tenderness. Integumentary: Bilateral lower extremity venous stasis dermatitis. Neurological: No focal motor deficit. Plan: Continue IV Lasix for CHF/peripheral edema. Echocardiogram done, result is pending. Insulin sliding scale for glucose management. Metformin is on hold Keep lower extremities elevated. Activity as tolerated. Seen by PT. patient is needing moderate assist with transfers. ADA diet. Monitor and optimize electrolytes. Creatinine is trended up slightly. Monitor renal function with lasix diuresis Elevated troponin likely secondary to demand ischemia. Troponin trended flat. Patient is declining disposition to facility and prefers to go home.
--- NOTE | 2022-06-19 19:18 | EKG ---
Test Date: 2022-06-17 Test Time: 11:58:45 Systems Operator: DENNIS MEASUREMENT RESULTS: Intervals: Rate: 95 LA: QRSD: 174 QT: 434 QTc: 545 [place]: P: 23 LA: QRS: -88 T: 98 INTERPRETIVE STATEMENTS: Ventricular-paced rhythm Abnormal ECG Compared to ECG 01/27/2022 21:10:04 Sinus bradycardia no longer present Ventricular escape complex(es) no longer present Ventricular premature complex(es) no longer present Right bundle-branch block no longer present Left anterior fascicular block no longer present Bifascicular block no longer present Electronically Signed On 06-19-22 19:11:06 ASSEMBLY INSTRUCTIONS WRITER by Kaveh Pruett
[2022-06-19] MEDS: HYDROCODONE/APAP 5/325 MG TAB PO PRN (21:51)
[2022-06-20 05:43] LABS: Absolute Lymphocytes (CBC) 0.7 K/uL (0.7-4.9); Hematocrit 31.3 % (39.6-49.0); Lymphocytes % 13.5 % (15.3-44.8); MCV 81.7 fL (80-100); MPV 8.5 fL (7.6-11.3); RBC Red Blood Cell Count 3.83 M/uL (4.33-5.43)
[2022-06-20 05:49] LABS: Potassium 3.5 mmol/L (3.5-5.1)
[2022-06-20] MEDS: INSULIN -REGULAR HUMAN 50 UNIT/0.5 ML ML SQ SCH ×4 (07:30→20:14)
[2022-06-20] MEDS ORDERED: POTASSIUM CL SA 10 MEQ TAB PO ONE (08:00)
[2022-06-20] MEDS: FUROSEMIDE 40 MG/4 ML VIAL IV SCH (08:02)
[2022-06-20] MEDS: HYDROCODONE/APAP 5/325 MG TAB PO PRN (08:02)
[2022-06-20] MEDS: ENOXAPARIN 30 MG/0.3 ML SQ SCH (08:03)
--- NOTE | 2022-06-20 12:14 | P.PN ---
Subjective Date of Service: 06/20/22 Chief Complaint: Bilateral leg swelling Patient reports significant improvement in pain in bilateral leg. Swellings of both legs have significantly improved. He was seen sitting in a wheelchair. Stable on room air. Physical Examination - Vital Signs Temperature: 97.5 F Blood Pressure: 111/72 Pulse: 73 Respirations: 18 Pulse Ox (%): 97 Assessment And Plan - Current Problems (Diagnosis) (1) Acute diastolic heart failure Current Visit: Yes Status: Acute (2) History of heart block Current Visit: Yes Status: Acute (3) Diabetes mellitus Current Visit: No Status: Active (4) Hypertension Current Visit: Yes Status: Acute (5) Elevated troponin Current Visit: Yes Status: Acute - Plan Physical Exam General: Alert, NAD, oriented x3 Neck: Supple, JVD not distended Respiratory: Clear to auscultation bilaterally, Normal air movement Cardiovascular: Regular rate/rhythm, Normal S1 S2, Edema Gastrointestinal: Normal bowel sounds, Soft and benign, Non-distended, No tenderness Musculoskeletal: Swelling -Bilateral legs-improved, no tenderness. Integumentary: Bilateral lower extremity venous stasis dermatitis and skin xerosis.. Neurological: No focal motor deficit. Plan: Continue IV Lasix for CHF/peripheral edema. Echocardiogram done, result is pending. Insulin sliding scale for glucose management. Metformin is on hold Keep lower extremities elevated. Activity as tolerated. Seen by PT. patient is needing moderate assist with transfers. ADA diet. Monitor and optimize electrolytes. Creatinine is trended up slightly. Monitor renal function with lasix diuresis Elevated troponin likely secondary to demand ischemia. Troponin trended flat. Patient agrees to go to [facility] bed. Social service to follow and assist with disposition. Continue PT.
[2022-06-20] MEDS: FUROSEMIDE 40 MG TABLET PO SCH (16:38)
[2022-06-21 03:42] LABS: Absolute Lymphocytes (CBC) 0.7 K/uL (0.7-4.9); Hematocrit 33.1 % (39.6-49.0); Lymphocytes % 11.8 % (15.3-44.8); MCV 81.2 fL (80-100); MPV 8.5 fL (7.6-11.3); RBC Red Blood Cell Count 4.08 M/uL (4.33-5.43)
--- NOTE | 2022-06-21 07:15 | ECHO ---
HEIGHT: 5 ft 3 in WEIGHT: 144 lb 0 oz DATE OF STUDY: 06/18/[address]: Joshua Menchaca MD 2-DIMENSIONAL: YES M.MODE: YES DOPPLER: YES COLOR FLOW: YES TDS: PORTABLE: YES DEFINITY: BUBBLE STUDY: DIAGNOSIS: CONGESTIVE HEART FAILURE CARDIAC HISTORY: CATHERIZATION: YES SURGERY: YES PROSTHETIC VALVE: PACEMAKER: YES MEASUREMENTS (cm) DIASTOLIC (NORMALS) SYSTOLIC (NORMALS) IVSd 1.0 (0.6-1.2) LA Diam 3.7 (1.9-4.0) LVEF 25% LVIDd 4.9 (3.5-5.7) LVIDs 4.4 (2.0-3.5) %FS 12% LVPWd 1.3 (0.6-1.2) Ao Diam 2.7 (2.0-3.7) 2 DIMENSIONAL ASSESSMENT: RIGHT ATRIUM: NORMAL LEFT ATRIUM: NORMAL RIGHT VENTRICLE: PACEMAKER LEFT VENTRICLE: NORMAL SIZE TRICUSPID VALVE: NORMAL MITRAL VALVE: NORMAL PULMONIC VALVE: NORMAL AORTIC VALVE: NORMAL PERICARDIAL EFFUSION: NONE AORTIC ROOT: NORMAL LEFT VENTRICULAR WALL MOTION: SEVERE GLOBAL HYPOKINESIS DOPPLER/COLOR FLOW: MILD MITRAL REGURGITATION, TRICUSPID REGURGITATION COMMENTS: 1. SEVERE GLOBAL HYPOKINESIS 2. EJECTION FRACTION 25% 3. MILD MITRAL REGURGITATION, TRICUSPID REGURGITATION 4. PACEMAKER IN RIGHT VENTRICULAR [employer] TECHNOLOGIST: HUGO FRAZIER
[2022-06-21] MEDS: INSULIN -REGULAR HUMAN 50 UNIT/0.5 ML ML SQ SCH ×3 (07:30→15:36)
[2022-06-21] MEDS: FUROSEMIDE 40 MG TABLET PO SCH ×2 (08:30→15:59)
[2022-06-21] MEDS: ENOXAPARIN 30 MG/0.3 ML SQ SCH (08:30)
[2022-06-21 11:35] VITALS: TEMP 97.3
--- NOTE | 2022-06-21 12:32 | P.PN ---
Subjective Date of Service: 06/21/22 Chief Complaint: Bilateral leg swelling Patient has no new complain. Swellings of both legs have significantly improved. He was seen sitting in a wheelchair. He is eating well. Physical Examination - Vital Signs Temperature: 97.3 F Blood Pressure: 111/59 Pulse: 84 Respirations: 20 Pulse Ox (%): 97 Assessment And Plan - Current Problems (Diagnosis) (1) Acute diastolic heart failure Current Visit: Yes Status: Acute (2) History of heart block Current Visit: Yes Status: Acute (3) Diabetes mellitus Current Visit: No Status: Active (4) Hypertension Current Visit: Yes Status: Acute (5) Elevated troponin Current Visit: Yes Status: Acute - Plan Physical Exam General: Alert, NAD, oriented x3 Neck: Supple, JVD not distended Respiratory: Clear to auscultation bilaterally, Normal air movement Cardiovascular: Regular rate/rhythm, Normal S1 S2, Edema Gastrointestinal: Normal bowel sounds, Soft and benign, Non-distended, No tenderness Musculoskeletal: Swelling -Bilateral legs-significantly improved, no tenderness. Integumentary: Bilateral lower extremity venous stasis dermatitis and skin xerosis.. Neurological: No focal motor deficit. Plan: Continue IV Lasix for CHF/peripheral edema. Echocardiogram: Severe global hypokinesia. EF of 25% Insulin sliding scale for glucose management. Metformin is on hold Keep lower extremities elevated. Activity as tolerated. Patient is needing moderate assist with transfers. ADA diet. Monitor and optimize electrolytes. Creatinine stable with diuresis. Continue oral Elevated troponin likely secondary to demand ischemia. Troponin trended flat. Patient agrees to go to [facility] swing bed. Social service assisting with arrangement. Continue PT.
[2022-06-21 15:38] VITALS: BP 124/70; O2SAT 97
--- NOTE | 2022-06-21 16:46 | P.DS ---
Admission Date: 06/17/22 Discharge Date: 06/21/22 Disposition: TRANSFER TO SNF - REHAB Discharge Condition: FAIR Reason for Admission: Bilateral leg swelling - Problems (1) Acute diastolic heart failure Current Visit: Yes Status: Acute (2) History of heart block Current Visit: Yes Status: Acute (3) Diabetes mellitus Current Visit: No Status: Active (4) Hypertension Current Visit: Yes Status: Acute (5) Elevated troponin Current Visit: Yes Status: Acute Brief History of Present Illness: 77 gentleman with a history of heart failure, hypertension and diabetes presented to the emergency department with complaint of progressive swelling of bilateral lower extremities of 2 weeks duration. Symptoms associated with increasing pain. Patient also reported shortness of breath and orthopnea. Symptoms did not improve with antibiotics prescribed by his PCP. In the ED, chest x-ray demonstrated mild pulmonary edema. Patient has bilateral lower extremity edema which are tender to touch. Troponin mildly elevated, BNP elevated. Patient is hospitalized for further management of CHF exacerbation. Hospital Course: Patient admitted to the medical floor and treated for CHF exacerbation with IV Lasix. Noted impaired renal function with creatinine of 1.6. Patient creatinine was stable with Lasix diuresis. His lower extremity edema improved significantly and almost resolved. Orthopnea also resolved. Echocardiogram: Severe global hypokinesia. EF of 25% Metformin was held during the hospital stay Patient had elevated troponin which trended flat indicating demand ischemia. She was seen and evaluated by PT. He is needing moderate assist with transfers. PT recommended, patient agreed to go to [facility] swing bed. Patient has been accepted. He is clinically stable for discharge. Vital Signs/Physical Exam: Temp Pulse Resp BP Pulse Ox 97.3 F 80 18 124/70 97 06/21/22 15:37 06/21/22 15:59 06/21/22 15:37 06/21/22 15:59 06/21/22 15:37 General: Alert, In no apparent distress, Oriented x3 HEENT: Mucous membr. moist/pink Neck: JVD not distended Respiratory: Clear to auscultation bilaterally, Normal air movement Cardiovascular: Regular rate/rhythm, Normal S1 S2, Edema (1+ bilateral lower extremity edema) Gastrointestinal: Normal bowel sounds, Soft and benign, Non-distended Integumentary: Other (Bilateral venous stasis dermatitis and skin xerosis) Neurological: Normal strength at 5/5 x4 extr Laboratory Data at Discharge: WBC 5.90 K/uL (4.3-10.9) 06/21/22 03:25 Hgb 10.8 g/dL (13.6-17.9) L 06/21/22 03:25 Hct 33.1 % (39.6-49.0) L 06/21/22 03:25 Plt Count 247 K/uL (152-406) 06/21/22 03:25 PT 14.2 SECONDS (9.5-12.5) H 06/17/22 12:07 INR 1.29 06/17/22 12:07 Sodium 138 mmol/L (136-145) 06/21/22 03:25 Potassium 4.0 mmol/L (3.5-5.1) D 06/21/22 03:25 BUN 39 mg/dL (7-18) H 06/21/22 03:25 Creatinine 1.49 mg/dL (0.55-1.3) H 06/21/22 03:25 Glucose 106 mg/dL (74-106) 06/21/22 03:25 Phosphorus 3.3 mg/dL (2.5-4.9) 06/18/22 04:10 Magnesium 2.3 mg/dL (1.8-2.4) 06/18/22 04:10 Total Bilirubin 0.9 mg/dL (0.2-1.0) 06/17/22 12:07 AST 39 U/L (15-37) H 06/17/22 12:07 ALT 27 U/L (12-78) 06/17/22 12:07 Alkaline Phosphatase 150 U/L (45-117) H 06/17/22 12:07 Home Medications: Clopidogrel Bisulfate [Plavix*] 75 mg PO DAILY #30 tablet 12/08/12 Levothyroxine [Synthroid*] 0.075 mg PO DAILY 01/25/17 Metformin HCl [Glucophage*] 500 mg PO BID 01/25/17 Atorvastatin Calcium 1 tab PO DAILY 06/18/22 Citalopram [Celexa*] 20 mg PO DAILY 06/18/22 lisinopriL [Lisinopril] 1 tab PO DAILY 06/18/22 Furosemide [Lasix*] 40 mg PO BIDL tab 06/21/22 carvediloL [Coreg] 6.25 mg PO BID #60 tab 06/21/22 New Medications: carvediloL [Coreg] 6.25 mg PO BID #60 tab Diet: ADA Activity: Fall precautions Followup: Joe Daniel MD [Primary Care Provider] - 1-2 Weeks Time spent managing pt's care (in minutes): 36
[2022-06-22] MEDS ORDERED: ENOXAPARIN 40 MG/0.4 ML SQ SCH (09:00)
== END 2022-06-21 19:00 | DRG 291 ==
LOC: ER 10:59 → ERHOLD 16:46 → 4TH 06-18 11:02
PROVIDERS: ADMIT Internal Medicine; ATTEND Internal Medicine
DX: I11.0 Hypertensive heart disease with heart failure (principal); I50.31 Acute diastolic (congestive) heart failure; I24.8 Other forms of acute ischemic heart disease; E11.9 Type 2 diabetes mellitus without complications; E78.5 Hyperlipidemia, unspecified; E03.9 Hypothyroidism, unspecified; I87.2 Venous insufficiency (chronic) (peripheral); I25.2 Old myocardial infarction; Z95.0 Presence of cardiac pacemaker; Z95.1 Presence of aortocoronary bypass graft; Z79.84 Long term (current) use of oral hypoglycemic drugs; Z79.02 Long term (current) use of antithrombotics/antiplatelets; Z79.890 Hormone replacement therapy; Z79.899 Other long term (current) drug therapy; Z20.822 Contact with and (suspected) exposure to COVID-19
CPT/HCPCS: 36415; 71045; 80048; 80053; 82947; 83605; 83735; 83880; 84100; 84484; 85025; 85610; 87040; 87811; 93005; 93306; 93970; 94760; 96361; 96374; 96375; 97116; 97161; 97530; 99284; J1650; J1940; J2405

== ENCOUNTER 2023-01-01 12:20 | Emergency (ER) | payer OTHER ==
--- OUTSIDE RECORDS SUMMARY | 2023-01-01 12:28 | XMS REPORT | Continuity of Care Document ---
:1945 Author Organization [facility] t Address [address] [facility] [address] [place] [address] Care Team Providers Name Role Phone No, Pcp [facility] Primary Care Physician Unavailable Molly Attending Clinician Unavailable ABRIL MARCUS Attending Clinician Unavailable FAUSTO MORAN Attending Clinician Unavailable BRENDA BHATTI Attending Clinician Unavailable ART MORROW Attending Clinician Unavailable NAIDA MARCUS Attending Clinician Unavailable Naida Marcus MD Attending Clinician Tino Mata MD Attending Clinician Molly Admitting Clinician Unavailable FAUSTO MORAN Admitting Clinician Unavailable NAIDA MARCUS Admitting Clinician Unavailable Payers Payer Name Policy Type Policy Number Effective Date Expiration Date S bhavin [facility] [id number] 2022 (MEDICARE 00:00:00 REPLACEMENT HMO) [id number] 2022 [facility] 00:00:00 [employer] MEDICARE [id number] 2022 00:00:00 Problems Condition Condition Condition Status Onset Resolution [...] Date Date Clinician NO KNOWN Allergy Active [facility] Social History Social Habit Start Date Stop Date Quantity Comments Source History SDOH [facility] Transport Non-Med Medical Center Alcohol intake 2022-02-02 2022-02-02 Ex-drinker [facility] (finding[facility] Medical Center Tobacco use and 2022-01-28 2022-01-28 Smokeless tobacco [facility] exposure [facility] 00:00:00 non-user Medical Center History [facility] 2022-01-28 2022-01-[address] [facility] Transport Med 00:00:00 00:00:[address] History [facility] 2022-01-28 2022-01-[address] [facility] Housing Unable to 00:00:00 00:00:00 Medical Center Pay History [facility] 2022-01-28 2022-01-[address] [facility] Housing Places 00:00:00 00:00:00 Medical Ce nter Lived History [facility] 2022-01-28 2022-01-[address] [facility] Housing Homeless 00:00:00 00:00:00 Medical Center Last Year Sex Assigned At [birth year] [facility] Margarita kes 00:00:00 00:00:00 [facility] Smoking Status Start Date Stop Date Source Never smoked tobacco [facility] Medications Ordered Filled Start Stop Current [...] Q.5D Apply [address] [facility] 01-30 drop to [facility] (DurezoL) 16:38: eye(s) 2 Medi mira 0.05 % Drop 17 (two) Center times daily. atorvastati 0 Yes 20mg QD Take [address] n (LIPITOR) 7-02 by mouth Luke s 20 MG 16:38: nightly. Medical tablet 17 Center clopidogreL 0 Yes 75mg QD Take [address] (PLAVIX) 75 7-02 by mouth Luke s mg tablet 16:38: daily. Medica 17 [place] levothyroxi 0 Yes 75ug Take [address] ne 7-02 mcg by [facility]ukes (SYNTHROID, 16:38: mouth Medic al LEVOTHROID) 17 Every Center 75 MCG morning on tablet an empty stomach. metFORMIN 0 Yes 500mg Take [address] (GLUCOPHAGE 7-02 mg by [facility]ukes ) 500 MG 16:38: mouth Medical tablet 17 daily with Center breakfast. diflupredna 2021-0 Yes 1[drp] Q.5D Apply [address] [facility] 7-02 drop to [facility] (DurezoL) 16:38: eye(s) 2 Medi mira 0.05 % Drop 17 (two) Center times daily. atorvastati 0 Yes 20mg QD Take [address] n (LIPITOR) 7-02 by mouth Luke s 20 MG 16:38: nightly. Medical tablet 17 Center clopidogreL 0 Yes 75mg QD Take [address] (PLAVIX) 75 7-02 by mouth Luke s mg tablet 16:38: [facility]. [facility] [address] levothyroxi 0 Yes 75ug Take [address] ne 7-02 mcg by [facility]ukes (SYNTHROID, 16:38: mouth Medic al LEVOTHROID) 17 Every Center 75 MCG morning on tablet an empty stomach. metFORMIN 2021-0 Yes 500mg Take [address] (GLUCOPHAGE 7-02 mg by [facility]ukes ) 500 MG 16:38: mouth Medical tablet 17 daily with Center breakfast. diflupredna 2021-0 Yes 1[drp] Q.5D Apply [address] 7-02 drop to [facility] (DurezoL) 16:38: eye(s) 2 Medi mira 0.05 % Drop 17 (two) Center times daily. atorvastati 2021-0 Yes 20mg QD Take 20 mg [facility] [...] St ta-hydrochl 7-02 07-02 tablet by Margarita kes orothiaz 09:57: 00:00 mouth Medical (LOPRESSOR 47 :00 daily. Center HCT) 50-25 mg per tablet cloNIDine 2021- No .1mg Q.5D Take 0.[address] HCL 7-02 07-02 mg by [facility]ukes (CATAPRES) 09:57: 00:00 mouth 2 Med ical 0.1 MG 47 :00 (two) Center tablet times daily. metoprolol 2021- No 1{tbl} QD Take [address] ta-hydrochl 7-02 07-02 tablet by Margarita kes orothiaz 09:57: 00:00 mouth Medical (LOPRESSOR 47 :00 daily. Center HCT) 50-25 mg per tablet cloNIDine 2021- No .1mg Q.5D Take 0.[address] HCL 7-02 07-02 mg by Lukes (CATAPRES) 09:57: 00:00 mouth 2 Med ical 0.1 MG 47 :00 (two) Center tablet times daily. metoprolol 2021- No 1{tbl} QD Take [address] ta-hydrochl 01-30 tablet by Margarita wiggins orothiaz 09:57: 00:00 mouth Medical (LOPRESSOR 47 :00 daily. Center HCT) 50-25 mg per tablet mINOCYCLine 2021- No 100mg Take [address] (MINOCIN,DY 01-30 capsule Luke s NACIN) 100 00:00: 23:59 (100 mg Med ical MG capsule 00 :00 total) by Cent er mouth every 12 (twelve) hours for 5 days. mINOCYCLine No 100mg Take [address] (MINOCIN,DY 01-30 capsule Luke s NACIN) 100 00:00: 23:59 (100 mg Med ical MG capsule 00 :00 total) by Cent er mouth every 12 (twelve) hours for 5 days. mINOCYCLine No 100mg Take [address] (MINOCIN,DY 01-30 capsule Luke s NACIN) 100 00:00: 23:59 (100 mg Med ical MG capsule 00 :00 total) by Cent er mouth every 12 (twelve) hours for 5 days. Levothyroxi Levothyroxi Yes Godfrey SMITH 1 T PO Common ne Sodium ne Sodium Ortiz D [facility] Clonidine Clonidine Yes Godfrey 1 tablet Common HCl HCl Ortiz at bedtime [facility] Metoprolol Metoprolol Yes Godfrey SMITH 1 T PO Common Tartrate Tartrate Ortiz BID [facility] Metformin Metformin Yes Godfrey TK 1 T PO Common HCl HCl Ortiz BID [facility] Lisinopril Lisinopril Yes Godfrey TK 1 T PO Common Ortiz D [facility] Atorvastati Atorvastati Yes Godfrey SMITH 1 T PO Common n Calcium n Calcium Ortiz QHS [facility] Clopidogrel Clopidogrel Yes Godfrey SMITH 1 T PO Common Bisulfate Bisulfate Ortiz QD [facility] Acetaminoph Acetaminoph Yes Godfrey (Schedule Common en-Codeine en-Codeine Ortiz III Drug) Dilan #3 #3 TK 2 T PO - CHI Q 6 H PRF [facility] Furosemide Furosemide Yes Godfrey TK 1 T PO Common Ortiz QAM [facility] Vital Signs Vital Name Observation Time Observation Value Comments Source WEIGHT 2022-11-24 06:00:00 72.8 kg HEIGHT 2022-11-16 07:00:00 162.6 cm WEIGHT 2022-11-16 07:00:00 60 kg WEIGHT 2022-11-24 06:00:00 72.8 kg HEIGHT 2022-11-16 07:00:00 162.6 cm WEIGHT 2022-11-16 07:00:00 60 kg HEIGHT 2022-01-28 17:45:00 157.5 cm WEIGHT 2022-01-28 17:45:00 71.4 kg HEIGHT 2022-01-28 17:45:00 157.5 cm WEIGHT 2022-01-28 17:45:00 71.4 kg Systolic blood 2022-01-30 15:00:00 147 mm[Hg] [facility] Diastolic blood 2022-01-30 15:00:00 67 mm[Hg] [facility] Heart rate 2022-01-30 15:00:00 78 /min [facility] Body temperature 2022-01-30 15:00:00 37.11 Idania [facility] Respiratory rate 2022-01-30 15:00:00 20 /min [facility] Oxygen saturation in 2022-01-30 15:00:00 96 /min [facility] Arterial blood by Medical Ce nter Pulse oximetry Body height 2022-01-28 17:45:00 157.5 cm [facility] Body weight 2022-01-28 17:45:00 71.4 kg [facility] BMI 2022-01-28 17:45:00 28.79 kg/m2 [facility] Procedures Procedure Date / Time Performed Performing Clinician Sourevaristo e POCT-GLUCOSE METER 2022-01-30 12:02:00 Naida Marcus [facility] C-REACTIVE PROTEIN 2022-01-30 08:56:00 Rob Crespo [facility] CBC W/PLT COUNT & AUTO 2022-01-30 05:18:00 Naida Marcus i [facility] BASIC METABOLIC PANEL 2022-01-30 05:18:00 Naida Marcus [facility] MAGNESIUM 2022-01-30 05:18:00 Mcclain-Te, [facility] PHOSPHORUS 2022-01-30 05:18:00 Mcclain-Te, [facility] CBC W/PLT COUNT & AUTO 2022-01-30 05:18:00 Naida Marcus i [facility] POCT-GLUCOSE METER 2022-01-30 04:53:00 Naida Marcus [facility] XR CHEST 1 VIEW PORTABLE 2022-01-29 18:38:00 Mcclain[facility] TSH/FREE T4 IF INDICATED 2022-01-29 17:52:00 Melissa Mcintosh [facility] POCT-GLUCOSE METER 2022-01-29 17:47:00 Naida aMrcus [facility] INSERTION, CARDIAC 2022-01-29 14:40:00 AdolfoTino [facility] PACEMAKER, WITH [facility] TRANSVENOUS ATRIAL ELECTRODE LEAD POCT-GLUCOSE METER 2022-01-29 12:06:00 Naida Marcus [facility] 2D ECHO W/ DOPPLER 2022-01-29 09:03:35 Naida Marcus [facility] (CW/PW/COLOR) [facility] XR CHEST 1 VIEW PORTABLE 2022-01-29 05:25:00 Adolfo, Amir [facility] CBC W/PLT COUNT & AUTO 2022-01-29 04:38:00 Naida Marcus [facility] BASIC METABOLIC PANEL 2022-01-29 04:38:00 Naida Marcus [facility] PHOSPHORUS 2022-01-29 04:38:00 Mcclain-Te, [facility] MAGNESIUM 2022-01-29 04:38:00 Mcclain-Te, Joana [facility] CBC W/PLT COUNT & AUTO 2022-01-29 04:38:00 Naida Marcus i [facility] POCT-GLUCOSE METER 2022-01-29 04:33:00 Naida Marcus [facility] INSERTION, CATHETER, 2022-01-29 00:15:00 Adolfo, [facility] TEMPORARY PACING [facility] B-TYPE NATRIURETIC 2022-01-28 23:39:00 Adolfo, [facility] FACTOR (BNP) [facility] TROPONIN I 2022-01-28 23:39:00 Adolfo, [facility] PT/APTT 2022-01-28 23:39:00 Adolfo, [facility] XR CHEST 1 VIEW PORTABLE 2022-01-28 19:10:00 Naida Marcus [facility] / BEDSIDE [facility] CBC W/PLT COUNT & AUTO 2022-01-28 18:31:00 Naida Marcus [facility] BASIC METABOLIC PANEL 2022-01-28 18:31:00 Naida Marcus [facility] MAGNESIUM 2022-01-28 18:31[facility]00 [facility] 2022-01-28 18:31:00 [facility] 2022-01-28 18:31:00 Naida Marcus [facility] HEMOGLOBIN A1C 2022-01-28 18:31:00 [facility] 2022-01-28 18:31:00 [facility] T4, FREE 2022-01-28 18:31:00 [facility] CBC W/PLT COUNT & AUTO 2022-01-28 18:31:00 Naida Marcus [facility] ARRYTHMIA IMPLANT REPORT 2022-01-28 00:00:00 Provider, Default [facility] - SCAN Scanning [facility] CARDIAC CATH REPORT - 2022-01-28 00:00:00 Provider, Default [facility] SCAN Scanning [facility] EKG-SCANNED 2022-01-28 00:00:00 Provider, Default [facility] Plan of Care Planned Activity Planned Date Details Comments Source Future Scheduled 2023-04-[address] [facility] Test 00:00:00 (Season Ended) [code = Medic al Center INFLUENZA VACCINE (Season Ended)] Future Scheduled 2022-08-[address] [facility] Test 00:00:00 WELLNESS (YEAR 2 or Medical Center FIRST YEAR if no IPPE) [code = MEDICARE ANNUAL WELLNESS (YEAR 2 or FIRST YEAR if no IPPE)] Future Scheduled 2022-08-[address] [facility] Test 00:00:00 (12+) [code = Medical Center DEPRESSION SCREENING (12+)] Future Scheduled 2022-08-01 FALLS RISK SCREENING [facility] Test 00:00:00 [code = FALLS RISK Medical C enter SCREENING] Future Scheduled 2022-04-01 INFLUENZA VACCINE (#1) [facility] 00:00:00 [code = INFLUENZA Medical Ce nter VACCINE (#1)] Future Scheduled 2022-04-01 INFLUENZA VACCINE (#1) [facility] 00:00:00 [code = INFLUENZA Medical Ce nter VACCINE (#1)] Future Scheduled 2021-08-[address] [...] HEPATITIS C Medical Center SCREENING] Future Scheduled [address] [facility] Test 00:00:00 Counseling and Medical Cente r Screening (12+) [code = Tobacco Cessation Counseling and Screening (12+)] Future Scheduled 1945 COVID-19 VACCINE (#1) CH [...] Date/Time Type Type Clinicians Facility Department ID 2022-12-15 2022-12-15 Outpatient Hananel_A [facility] [id number] 00:00:00 00:00:00 [id number] [facility] 2022-12-11 2022-12-11 Outpatient Hananel_A [facility] [id number] 00:00:00 00:00:00 [id number] [facility] 2022-11-15 2022-12-03 Inpatient ER LIZETT MARCUS Surgery [id number] [facility] 23:34:00 13:50:00 ABRIL 2022-12-03 2022-12-03 Outpatient [facility] 00:00:00 00:00:00 [id number] [facility] l [facility] 2022-11-01 2022-11-01 Outpatient [facility]G [facility] 00:00:00 00:00:00 [id number] Medica l Group 2022-01-28 2022-01-30 Inpatient UR LIZETT MARCUS Cardiology [id number] SLS 17:00:00 15:40:00 NAIDA 2022-01-28 2022-01-30 [facility] [id number] 17:00:00 15:40:00 Encounter Naida Sawyer [facility] 2022-01-29 2022-01-29 Surgery Adolfo, Trudir [facility] [id number] 14:30:00 16:00:00 [facility] 2022-01-29 2022-01-29 Surgery Adolfo, Amir [facility] [id number] 12:30:00 13:09:00 [facility] 2022-01-28 2022-01-28 Surgery Adolfo, Amir [facility] [id number] 23:00:00 23:39:00 [facility] 2022-01-28 2022-01-28 Travel [facility] [id number] [facility] 00:[facility]:00 00:00:00 [facility] 2019-06-22 2019-06-22 [facility] [id number] Common 11:04:00 11:04:00 [facility] 2018-11-22 2018-11-22 [facility] [id number] Common 11:13:00 11:13:00 t [facility] Bone [facility] Sp[facility] t and [facility] - [facility] 2018-11-20 2018-11-20 [facility] [id number] Common 10:30:00 10:30:00 t Bone Bone and Spiri t and Joint [facility] - [facility] 2018-10-02 2018-10-02 [facility] [id number] Common 10:20:00 10:20:00 t [facility] Bone [facility] Spiri t and Joint [facility] - [facility] 2018-10-01 2018-10-01 [facility] [id number] Common 20:50:00 20:50:00 t Bone Bone and Spiri t and Joint [facility] - [facility] 2018-09-26 2018-09-26 [facility] [id number] Common 10:00:00 10:00:00 t [facility] Bone [facility] Spiri t and Joint [facility] - [facility] 2018-09-24 2018-09-24 [facility] [id number] Common 21:26:00 21:26:00 t [facility] Bone [facility] Spiri t and Joint [facility] - [facility] 2018-09-18 2018-09-18 [facility] [id number] Common 09:48:00 09:48:00 t Bone Bone and Spiri t and Joint Joint - [facility] 2018-09-11 2018-09-11 [facility] [id number] Common 15:18:00 15:18:00 t Bone Bone and Spiri t and Joint Joint - [facility] 2018-09-11 2018-09-11 [facility] [id number] Common 11:00:00 11:00:00 t Bone Bone and Spiri t and Joint [facility] - [facility] 2018-07-31 2018-07-31 [facility] [id number] Common 11:00:00 11:00:00 t Bone Bone and Spiri t and Joint Joint - [facility] 2018-07-17 2018-07-17 [facility] [id number] Common 14:09:00 14:09:00 t Bone Bone and Spiri t and Joint Joint - [facility] 2018-05-11 2018-05-11 [facility] [id number] Common 17:06:00 17:06:00 t Bone Bone and Spiri t and Joint Joint - [facility] 2018-05-11 2018-05-11 [facility] [id number] Common 13:30:00 13:30:00 t Bone Bone and Spiri t and Joint [facility] - [facility] Results Test Description Test Time Test Comments Results Result Comments Source POCT-GLUCOSE METER 2022-12-03 12:12:01 Test Item Value Reference Range Interpretation [place] n[place] POC-GLUCOSE METER (BEAKER) 140 mg/dL 70-110 H : TESTED AT [facility] [address] (test code = [address], [facility] [id number]: Aligner Typewriter/Techni corazon ID = [id number] for Salome Renee POCT-GLUCOSE [id number] 06:56:20 Test Item Value Reference Range Interpretation Comments POC-GLUCOSE METER 88 mg/dL 70-110 : TESTED A T [facility] [address] (BEAKER) (test code = [address]) [place] [id number]: Aligner Typewriter/Techni corazon ID = [id number] for Okor o, Aidee POCT-GLUCOSE [id number] 21:09:46 Test Item Value Reference Range Interpretation Comments POC-GLUCOSE METER 139 mg/dL 70-110 H : TESTED A T [facility] [address] (BEAKER) (test code [address] [facility], = 1538) [place] [id number]: Aligner Typewriter/Techni corazon ID = [id number] for [place], Aidee POCT-GLUCOSE [id number] 16:06:12 Test Item Value Reference Range Interpretation Comments POC-GLUCOSE METER 121 mg/dL 70-110 H : TESTED A T [facility] [address] (BEAKER) (test code [address] [facility], = 1538) [place] [id number] 478: Aligner Typewriter/Techni corazon ID = [id number] for Will iams, Maria L POCT-GLUCOSE [id number] 12:27:02 Test Item Value Reference Range Interpretation Comments POC-GLUCOSE METER 125 mg/dL 70-110 H : TESTED A T [facility] [address] (BEAKER) (test code [address] [facility], = 1538) [place] [id number] 478: Aligner Typewriter/Techni corazon ID = [id number] for Will iams, Maria L POCT-GLUCOSE [id number] 06:02:24 Test Item Value Reference Range Interpretation Comments POC-GLUCOSE METER 109 mg/dL 70-110 : TESTED A T [facility] [address] (BEAKER) (test code [address] [facility], = 1538) [place] [id number] 478: Aligner Typewriter/Techni corazon ID = [id number] for Taryn Sung POCT-GLUCOSE [id number] 22:05:00 Test Item Value Reference Range Interpretation Comments POC-GLUCOSE METER 124 mg/dL 70-110 H : TESTED A T [facility] [address] (BEAKER) (test code [address], = 1538) [facility] [place] [address]: Aligner Typewriter/Techni corazon ID = [id number] for Pinky Gallagher POCT-GLUCOSE [id number] 15:29:01 Test Item Value Reference Range Interpretation Comments POC-GLUCOSE METER 150 mg/dL 70-110 H : TESTED A T [facility] [address] (BEAKER) (test code [address], = 1538) [place] [id number]: Aligner Typewriter/Techni corazon ID = [id number] for Maria L Mckenna POCT-GLUCOSE [id number] 07:22:48 Test Item Value Reference Range Interpretation Comments POC-GLUCOSE METER 96 mg/dL 70-110 : TESTED A T [facility] [address] (BEAKER) (test code = [address], [address]) [place] [address] 478: Aligner Typewriter/Techni corazon ID = [id number] for Sandroevaristo Tanja sheridan BASIC METABOLIC [id number] 05:34:00 Test Item Value Reference Range Interpretation Comments SODIUM (BEAKER) 140 meq/L 135-148 (test code = 381) POTASSIUM 3.7 meq/L 3.6-5.5 (BEAKER) (test code = 379) CHLORIDE (BEAKER) 105 meq/L 98-106 (test code = 382) CO2 (BEAKER) 25 meq/L 20-29 (test code = 355) BLOOD UREA 20 mg/dL 10-26 NITROGEN (BEAKER) (test code = 354) CREATININE 1.27 mg/dL 0.50-1.20 H (BEAKER) (test code = 358) GLUCOSE RANDOM 102 mg/dL 70-110 (BEAKER) (test code = 652) CALCIUM (BEAKER) 7.9 mg/dL 8.5-10.5 L (test code = 697) EGFR (BEAKER) 59 Interpretatio n of eGFR (test code = mL/min/1.73 values Stage De scription 1092) sq m Result G1 Vashti l or high >=90 G2 Mildly decreased 60-89 G3a Mildl y to moderately 45-5 9 G3b Moderately to s everely 30-44 G4 Severl y decreased 15-29 G5 Kidney failure <15Reported eGF R is based on the CKD-EPI 2020 equation that d oes not use a race coefficientEsti mated GFR is not as accur ate as Creatinine Henny je in predicting glom erular filtration rate . Estimated GFR is not appl icable for dialysis patien ts Aligner Typewriter ID - LITOOperator ID - LITOOperator ID - LITOOperator ID - LITOOperator ID - LITOOperator ID - LITOOperator ID - LITOOperator ID - LITOOperator ID - LITOOperator ID - LITOOperator ID - LITOOperator ID - LITOOperator ID - LITOCBC (HEMOGRAM ONLY)2022-12-01 05:16:56 Test Item Value Reference Range Interpretation Comments WHITE BLOOD CELL COUNT (BEAKER) 8.1 K/ L 4.0-10.0 (test code = 775) RED BLOOD CELL COUNT (BEAKER) 3.38 M/ L 4.20-5.80 L (test code = 761) HEMOGLOBIN (BEAKER) (test code = 9.6 GM/DL 13.0-16.8 L 410) HEMATOCRIT (BEAKER) (test code = 30.5 % 36.0-50.0 L 411) MEAN CORPUSCULAR VOLUME (BEAKER) 90 fL 82-99 (test code = 753) MEAN CORPUSCULAR HEMOGLOBIN 28.4 pg 27.0-33.0 (BEAKER) (test code = 751) MEAN CORPUSCULAR HEMOGLOBIN CONC 31.5 GM/DL 32.0-36.0 L (BEAKER) (test code = 752) RED CELL DISTRIBUTION WIDTH 20.4 % 12.0-15.0 H (BEAKER) (test code = 412) PLATELET COUNT (BEAKER) (test 135 K/CU MM 150-430 L code = 756) MEAN PLATELET VOLUME (BEAKER) 10.6 fL 6.0-11.5 (test code = 754) NUCLEATED RED BLOOD CELLS 0 /100 WBC 0-0 (BEAKER) (test code = 413) POCT-GLUCOSE [id number] 11:52:59 Test Item Value Reference Range Interpretation Comments POC-GLUCOSE METER 146 mg/dL 70-110 H : TESTED A T [facility] [address] (BEAKER) (test code [address], = 1538) [facility] [place] [address]: Aligner Typewriter/Techni corazon ID = [id number] for Jeannette Mota [id number] 08:27:05 Test Item Value Reference Range Interpretation Comments MAGNESIUM (BEAKER) (test code = 2.0 mg/dL 1.5-3.0 627) Aligner Typewriter ID - [id number] ID - [id number] ID - [id number] ID - [id number] 06:54:40 Test Item Value Reference Range Interpretation Comments POC-GLUCOSE METER 116 mg/dL 70-110 H : TESTED A T [facility] [address] (BEAKER) (test code [address], = 1538) [place] [id number]: Aligner Typewriter/Techni corazon ID = [id number] for Aidee Deshpande BASIC METABOLIC [id number] 04:48:26 Test Item Value Reference Range Interpretation Comments SODIUM (BEAKER) 141 meq/L 135-148 (test code = 381) POTASSIUM 3.5 meq/L 3.6-5.5 L (BEAKER) (test code = 379) CHLORIDE (BEAKER) 106 meq/L 98-106 (test code = 382) CO2 (BEAKER) 24 meq/L 20-29 (test code = 355) BLOOD UREA 18 mg/dL 10-26 NITROGEN (BEAKER) (test code = 354) CREATININE 1.29 mg/dL 0.50-1.20 H (BEAKER) (test code = 358) GLUCOSE RANDOM 106 mg/dL 70-110 (BEAKER) (test code = 652) CALCIUM (BEAKER) 8.0 mg/dL 8.5-10.5 L (test code = 697) EGFR (BEAKER) 57 Interpretatio n of eGFR (test code = mL/min/1.73 values Stage De scription 1092) sq m Result G1 Vashti l or high >=90 G2 Mildly decreased 60-89 G3a Mildl y to moderately 45-5 9 G3b Moderately to s everely 30-44 G4 Sever ly decreased 15-29 G5 Kidney failure <15Repo rted eGFR is based on the CKD-EPI 2020 equation t hat does not use a race coefficientEsti mated GFR is not as accur ate as Creatinine Henny je in predicting glom erular filtration rate . Estimated GFR is not appl icable for dialysis patien ts Aligner Typewriter ID - [id number] ID - [id number] ID - [id number] ID - [id number] ID - [id number] ID - [id number] ID - [id number] ID - [id number] ID - [id number] ID - [id number] ID - [id number] ID - [id number] ID - [id number] (HEMOGRAM ONLY)2022-11-30 04:32:28 Test Item Value Reference Range Interpretation Comments WHITE BLOOD CELL COUNT (BEAKER) 9.9 K/ L 4.0-10.0 (test code = 775) RED BLOOD CELL COUNT (BEAKER) 3.29 M/ L 4.20-5.80 L (test code = 761) HEMOGLOBIN (BEAKER) (test code = 9.4 GM/DL 13.0-16.8 L 410) HEMATOCRIT (BEAKER) (test code = 29.6 % 36.0-50.0 L 411) MEAN CORPUSCULAR VOLUME (BEAKER) 90 fL 82-99 (test code = 753) MEAN CORPUSCULAR HEMOGLOBIN 28.6 pg 27.0-33.0 (BEAKER) (test code = 751) MEAN CORPUSCULAR HEMOGLOBIN CONC 31.8 GM/DL 32.0-36.0 L (BEAKER) (test code = 752) RED CELL DISTRIBUTION WIDTH 20.3 % 12.0-15.0 H (BEAKER) (test code = 412) PLATELET COUNT (BEAKER) (test 146 K/CU MM 150-430 L code = 756) MEAN PLATELET VOLUME (BEAKER) 11.0 fL 6.0-11.5 (test code = 754) NUCLEATED RED BLOOD CELLS 0 /100 WBC 0-0 (BEAKER) (test code = 413) POCT-GLUCOSE [id number] 21:07:55 Test Item Value Reference Range Interpretation Comments POC-GLUCOSE METER 121 mg/dL 70-110 H : TESTED A T [facility] (BEAKER) (test code [facility], = 1538) [place] [id number]: Aligner Typewriter/Techni corazon ID = [id number] for Aidee Deshpande POCT-GLUCOSE [id number] 18:47:40 Test Item Value Reference Range Interpretation Comments POC-GLUCOSE METER 125 mg/dL 70-110 H : TESTED A T [facility] (BEAKER) (test code [facility], = 1538) [place] [id number]: Aligner Typewriter/Techni corazon ID = [id number] for Jesica Bateman POCT-GLUCOSE [id number] 12:38:01 Test Item Value Reference Range Interpretation Comments POC-GLUCOSE METER 126 mg/dL 70-110 H : TESTED A T [facility] (BEAKER) (test code [facility], = 1538) [place] [id number]: Aligner Typewriter/Techni corazon ID = [id number] for Jesica Batemna VANCOMYCIN LEVEL, [id number] 09:29:16 Test Item Value Reference Range Interpretation Comments VANCOMYCIN TROUGH (BEAKER) (test 14.2 ug/mL 10.0-20.0 code = 522) Aligner Typewriter ID - [id number] 07:27:14 Test Item Value Reference Range Interpretation Comments POC-GLUCOSE METER 108 mg/dL 70-110 : TESTED A T [facility] (BEAKER) (test code [facility], = 1538) [place] [id number]: Aligner Typewriter/Techni corazon ID = [id number] for Aidee Deshpande BASIC METABOLIC [id number] 06:19:46 Test Item Value Reference Range Interpretation Comments SODIUM (BEAKER) 143 meq/L 135-148 (test code = 381) POTASSIUM 3.1 meq/L 3.6-5.5 L (BEAKER) (test code = 379) CHLORIDE (BEAKER) 107 meq/L 98-106 H (test code = 382) CO2 (BEAKER) 24 meq/L 20-29 (test code = 355) BLOOD UREA 16 mg/dL 10-26 NITROGEN (BEAKER) (test code = 354) CREATININE 1.24 mg/dL 0.50-1.20 H (BEAKER) (test code = 358) GLUCOSE RANDOM 119 mg/dL 70-110 H (BEAKER) (test code = 652) CALCIUM (BEAKER) 8.0 mg/dL 8.5-10.5 L (test code = 697) EGFR (BEAKER) 60 Interpretati on of eGFR (test code = mL/min/1.73 values Stage De scription 1092) sq m Result G1 Vashti l or high >=90 G2 Mildly decreased 60-89 G3a Mildl y to moderately 45-5 9 G3b Moderately to s everely 30-44 G4 Severl y decreased 15-29 G5 Kidney failure <15Reported eGF R is based on the CKD-EPI 2020 equation that d oes not use a race coefficientEsti mated GFR is not as accur ate as Creatinine Henny je in predicting glom erular filtration rate . Estimated GFR is not appl icable for dialysis patien ts Aligner Typewriter ID - LITOOperator ID - LITOOperator ID - LITOOperator ID - LITOOperator ID - LITOOperator ID - LITOOperator ID - LITOOperator ID - LITOOperator ID - LITOOperator ID - LITOOperator ID - LITOOperator ID - LITOOperator ID - LITOCBC (HEMOGRAM ONLY)2022-11-29 06:05:37 Test Item Value Reference Range Interpretation Comments WHITE BLOOD CELL COUNT (BEAKER) 10.1 K/ L 4.0-10.0 H (test code = 775) RED BLOOD CELL COUNT (BEAKER) 3.40 M/ L 4.20-5.80 L (test code = 761) HEMOGLOBIN (BEAKER) (test code = 9.7 GM/DL 13.0-16.8 L 410) HEMATOCRIT (BEAKER) (test code = 30.3 % 36.0-50.0 L 411) MEAN CORPUSCULAR VOLUME (BEAKER) 89 fL 82-99 (test code = 753) MEAN CORPUSCULAR HEMOGLOBIN 28.5 pg 27.0-33.0 (BEAKER) (test code = 751) MEAN CORPUSCULAR HEMOGLOBIN CONC 32.0 GM/DL 32.0-36.0 (BEAKER) (test code = 752) RED CELL DISTRIBUTION WIDTH 20.6 % 12.0-15.0 H (BEAKER) (test code = 412) PLATELET COUNT (BEAKER) (test 150 K/CU MM 150-430 code = 756) MEAN PLATELET VOLUME (AKER) 11.2 fL 6.0-11.5 (test code = 754) NUCLEATED RED BLOOD CELLS 0 /100 WBC 0-0 (AKER) (test code = 413) POCT-GLUCOSE [id number] 21:46:57 Test Item Value Reference Range Interpretation Comments POC-GLUCOSE METER 118 mg/dL 70-110 H : TESTED A T [facility] (BEAKER) (test code [facility], = 1538) [place] [address]: Aligner Typewriter/Techni corazon ID = [id number] for Aidee Deshpande POCT-GLUCOSE [id number] 16:50:18 Test Item Value Reference Range Interpretation Comments POC-GLUCOSE METER 124 mg/dL 70-110 H : TESTED A T [facility] (BEAKER) (test code [facility], = 1538) [place] [id number]: Aligner Typewriter/Techni corazon ID = [id number] for Will iams, Maria L POCT-GLUCOSE [id number] 12:17:25 Test Item Value Reference Range Interpretation Comments POC-GLUCOSE METER 111 mg/dL 70-110 H : TESTED A T [facility] (BEAKER) (test code [facility], = 1538) [place] [id number]: Aligner Typewriter/Techni corazon ID = [id number] for Will iams, Maria L POCT-GLUCOSE [id number] 06:25:14 Test Item Value Reference Range Interpretation Comments POC-GLUCOSE METER 106 mg/dL 70-110 : TESTED A T [facility] (BEAKER) (test code [facility], = 1538) [place] [id number]: Aligner Typewriter/Techni corazon ID = [id number] for Jossue Pike POCT-GLUCOSE [id number] 21:47:10 Test Item Value Reference Range Interpretation Comments POC-GLUCOSE METER 120 mg/dL 70-110 H : TESTED A T [facility] (BEAKER) (test code [address], = 1538) [place] [id number]: Aligner Typewriter/Techni corazon ID = [id number] for Jeni Armstrong POCT-GLUCOSE [id number] 15:57:49 Test Item Value Reference Range Interpretation Comments POC-GLUCOSE METER 132 mg/dL 70-110 H : TESTED A T [facility] (BEAKER) (test code [address], = 1538) [place] [id number]: Aligner Typewriter/Techni corazon ID = [id number] for Cyn Mckennae POCT-GLUCOSE [id number] 12:14:52 Test Item Value Reference Range Interpretation Comments POC-GLUCOSE METER 110 mg/dL 70-110 : TESTED A T [facility] (BEAKER) (test code [address], = 1538) [place] [id number]: Aligner Typewriter/Techni corazon ID = [id number] for Herbie iaCyn juáreze OSMOLALITY, [id number] 11:57:38 Test Item Value Reference Range Interpretation Comments OSMOLALITY, SERUM (BEAKER) (test 299 mOsm/kg 275-295 H code = 615) BASIC METABOLIC [id number] 07:24:21 Test Item Value Reference Range Interpretation Comments SODIUM (BEAKER) 143 meq/L 135-148 (test code = 381) POTASSIUM 3.4 meq/L 3.6-5.5 L (BEAKER) (test code = 379) CHLORIDE (BEAKER) 109 meq/L 98-106 H (test code = 382) CO2 (BEAKER) 23 meq/L 20-29 (test code = 355) BLOOD UREA 20 mg/dL 10-26 NITROGEN (BEAKER) (test code = 354) CREATININE 1.30 mg/dL 0.50-1.20 H (BEAKER) (test code = 358) GLUCOSE RANDOM 104 mg/dL 70-110 (BEAKER) (test code = 652) CALCIUM (BEAKER) 8.1 mg/dL 8.5-10.5 L (test code = 697) EGFR (BEAKER) 57 Interpretatio n of eGFR (test code = mL/min/1.73 values Stage De scription 1092) sq m Result G1 Vashti l or high >=90 G2 Mildly decreased 60-89 G3a Mildl y to moderately 45-5 9 G3b Moderately to s everely 30-44 G4 Severl y decreased 15-29 G5 Kidney failure <15Reported eGF R is based on the CKD-EPI 2020 equation that d oes not use a race coefficientEsti mated GFR is not as accur ate as Creatinine Henny je in predicting glom erular filtration rate . Estimated GFR is not appl icable for dialysis patien ts Aligner Typewriter ID - [id number] ID - [id number] ID - [id number] ID - [id number] ID - YUEM24Rgncyrlc ID - [id number] ID - [id number] ID - [id number] ID - [id number] ID - [id number] ID - KXCK82Zenomfow ID - GYWY20Okqxcnxf ID - [id number] [id number] 07:15:21 Test Item Value Reference Range Interpretation Comments POC-GLUCOSE METER 110 mg/dL 70-110 : TESTED A T [facility] (BEAKER) (test code [facility] [address], = 1538) [facility] [place] [address]: Aligner Typewriter/Techni corazon ID = [id number] for Tessa schilling Karynatomer CBC W/PLT COUNT & AUTO [id number] 07:05:53 Test Item Value Reference Range Interpretation Comments WHITE BLOOD CELL COUNT (BEAKER) 9.8 K/ L 4.0-10.0 (test code = 775) RED BLOOD CELL COUNT (BEAKER) 3.00 M/ L 4.20-5.80 L (test code = 761) HEMOGLOBIN (BEAKER) (test code = 8.5 GM/DL 13.0-16.8 L 410) HEMATOCRIT (BEAKER) (test code = 27.8 % 36.0-50.0 L 411) MEAN CORPUSCULAR VOLUME (BEAKER) 93 fL 82-99 (test code = 753) MEAN CORPUSCULAR HEMOGLOBIN 28.3 pg 27.0-33.0 (BEAKER) (test code = 751) MEAN CORPUSCULAR HEMOGLOBIN CONC 30.6 GM/DL 32.0-36.0 L (BEAKER) (test code = 752) RED CELL DISTRIBUTION WIDTH 20.1 % 12.0-15.0 H (BEAKER) (test code = 412) PLATELET COUNT (BEAKER) (test 162 K/CU MM 150-430 code = 756) MEAN PLATELET VOLUME (BEAKER) 11.5 fL 6.0-11.5 (test code = 754) NUCLEATED RED BLOOD CELLS 0 /100 WBC 0-0 (BEAKER) (test code = 413) NEUTROPHILS RELATIVE PERCENT 86 % (BEAKER) (test code = 429) LYMPHOCYTES RELATIVE PERCENT 4 % (BEAKER) (test code = 430) MONOCYTES RELATIVE PERCENT 7 % (BEAKER) (test code = 431) EOSINOPHILS RELATIVE PERCENT 3 % (BEAKER) (test code = 432) BASOPHILS RELATIVE PERCENT 1 % (BEAKER) (test code = 437) NEUTROPHILS ABSOLUTE COUNT 8.36 K/ L 1.80-8.00 H (BEAKER) (test code = 670) LYMPHOCYTES ABSOLUTE COUNT 0.36 K/ L 1.48-4.50 L (BEAKER) (test code = 414) MONOCYTES ABSOLUTE COUNT (BEAKER) 0.64 K/ L 0.00-1.30 (test code = 415) EOSINOPHILS ABSOLUTE COUNT 0.29 K/ L 0.00-0.50 (BEAKER) (test code = 416) BASOPHILS ABSOLUTE COUNT (BEAKER) 0.05 K/ L 0.00-0.20 (test code = 417) IMMATURE GRANULOCYTES-RELATIVE 0.60 % 0.00-0.00 H PERCENT (BEAKER) (test code = 2801) POCT-GLUCOSE [id number] 01:01:49 Test Item Value Reference Range Interpretation Comments POC-GLUCOSE METER 118 mg/dL 70-110 H : TESTED A T [facility] (BEAKER) (test code [address], = 1538) [facility] [place] [address]: Aligner Typewriter/Techni corazon ID = [id number] for Tessa schilling Jossue TISSUE [id number] 18:45:01Surgical Pathology Report Case: [id number] Authorizing Provider: Jen Edouard MD Collected: 11/23/2022 05:52 PM Ordering Location: [facility] ICU Received: 11/24/2022 07:42 AM Pathologist: Elmira Lee MD Specimen: Plaque, PLAQUE FROM LEFT FEMORAL ARTERY LEFT FEMORAL ARTERY, ATHEROSCLEROTIC PLAQUE, REMOVAL: - ATHEROSCLEROTIC PLAQUE WITH CALCIFICATION Signing Pathologist Direct Phone Line: [phone] signed by Elmira Lee MD on 11/26/2022 at 6:45 [id number]; [id number]. PlaqueReceived fresh labeled with the patient's name, MRN and "plaque" is a previously incised tubular portion of yellow-red plaque measuring 2 X 1.5 cm. The specimen is serially sectioned. . Business Employment Specialist sections are submitted in A1, following decalcification.PerformedUREA NITROGEN, RANDOM [id number] 17:02:16 Test Item Value Reference Range Interpretation Comments UREA NITROGEN URINE (ZappliAKER) (test 181 mg/dL code = 538) Reference Range: No NormalsOperator ID - ADMINOSMOLALITY, [id number] 16:53:16 Test Item Value Reference Range Interpretation Comments OSMOLALITY URINE 356 mOsm/kg See_Comment [Automated message] (BYOM!) (test code = The sy stem which 614) generated this result transmitted ref erence range: 50-1,200 mOsm/kg. The reference range was not used to int erpret this result as normal/abnormal . CT, CTA AAA, W/ KERVIN.EXT.[id number] 12:44:00Evaluate left groin s/p pseudoaneurysm repair on 11/23. RAJ drain in place [facility] CENTERName: AYDEN VU : 1945 Sex: MFINAL REPORT CTA ABDOMEN AND PELVIS AND LOWER EXTREMITY RUNOFF: Exam: CT, CTA AAA, W/ KERVIN.EXT.RUNOFFDate: 11/26/2022 11:57 AM Indication:Status post left common femoral artery pseudoaneurysm repairComparison: 11/18/2022 TECHNIQUE:Multidetector CT scanning of the abdomen and pelvis was performed from the level of the lung bases to the feet, before and after administration of IV contrast. Delayed scanning was performed through the lower legs. No oral contrast was given. Sagittal and coronal multiplanar MIP and 3D VRT reformations were obtained. This exam was performed according to our departmental dose- optimization program which includes automated exposure control, adjustment of the mA and/or kV according to patient size and/or use of iterative reconstruction technique. FINDINGS: Right greater than left large pleural effusion again noted. 1.2 cm opacity seen within the anterior right middle lobe. Mild cardiomegaly with partially visualized cardiac leads, coronary artery atherosclerosis. Trace intracranial fluid. Mesenteric edema. No free air. The liver, gallbladder, spleen, adrenal glands and pancreas are normal. The kidneys are within normal limits and enhance symmetrically. There is no evidence of hydronephrosis, perinephric stranding or renal calculi. The bowel is normal in wall thickness and caliber. Kyxx-ww-wiwydjep colonic fecal retention. The prostate is within normal limits. Otto catheter in place, bladder is collapsed, not well evaluated. There is no significant abdominal or pelvic lymphadenopathy. Degenerative changes seen throughout the visualized osseous structures. Interval reduction in size of dense multiloculated soft tissue collection within the left groin, now with drainage catheter in place. Diffuse soft tissue edema. Abdominal Aorta: Diffuse atherosclerosis seen throughout the abdominal aorta without flow- limiting stenosis. No evidence of abdominal aortic aneurysm, or dissection. Celiac axis: Atherosclerotic disease noted at the origin of and proximal celiac axis with greater than 50% stenosis. SMA: Atherosclerotic disease noted at the origin of and proximalSMA with less than 50% stenosis. ELENO: Patent, without irregularity or stenosis. Right Renal artery: Atherosclerotic disease noted the large and a single right renal artery with about 50% stenosis. LeftRenal artery: Left main renal artery displays atherosclerotic disease of the origin with greater than 50% narrowing. A lower pole accessory renal arteries seen that is widely patent. Right Common Iliac: Atherosclerotic disease without evidence of flow-limiting stenosis. Right Internal Iliac: Atherosclerotic disease without evidence of flow-limiting stenosis. Right External Iliac: Patent, without irreg ularity or stenosis. Left Common Iliac: Atherosclerotic disease without evidence of flow-limiting stenosis. Left Internal Iliac: Atherosclerotic disease with multifocal greater than 50% stenosis. Left External Iliac: Patent, without irregularity or stenosis. The major venous structures including the portal vein, superior mesenteric vein, splenic vein, and inferior vena cava are normal. RIGHT LOWER EXTREMITY RUN-OFF: Right ARBORICULTURIST: Atherosclerosis with at least 50% stenosis. Right SFA: Diffuse atherosclerotic disease with multifocal narrowing, with high- grade stenosis at the distal SFA near the hiatus. Right Profunda Femoris: Atherosclerotic disease without evidence of flow-limiting stenosis. Right Popl iteal: Atherosclerosis with about 50% focal stenosis. Below-knee contrast is seen filling the posterior tibial artery with filling of the plantar arch, main runoff to the foot. Some filling of the peroneal artery is seen which tapers peripherally. 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 LEFT LOWER EXTREMITY RUN-OFF: Left ARBORICULTURIST: Status post repair of left common femoral artery pseudoaneurysm, no further pseudoaneurysm is seen. Atherosclerosis with focal greater than 50% narrowing. Left SFA: Atherosclerotic disease with multifocal greater than 50% stenosis seen throughout the left SFA. Left Profunda Femoris: Atherosclerosis with a high-grade stenosis of the proximal profunda. Left Popliteal: Atherosclerosis with multifocal greater than 50% stenosis within the popliteal artery. Below-knee contrast is seen filling the posterior tibial artery with filling of the plantar arch, main runoff to the foot. Some filling of the peroneal artery is seen which tapers peripherally. The anteriortibial artery is likely chronically occluded. IMPRESSION: VASCULAR:1.Diffuse atherosclerotic diseaseis seen throughout the abdominal aorta, pelvic branches and lower extremities, with involvement of the origins of the visceral arteries including the celiac axis, SMA and renal arteries.2.Patient is status post repair of left common femoral artery pseudoaneurysm, with no further centimeters in visualized. Status post drain placement within left groin collection/hematoma, with interval decrease in size.3.Multifocal clinically significant areas of narrowing seen within the bilateral lower extremities as described above, with largely single vessel runoffs dependent on the posterior tibial arteries, with some contrast filling seen within the tapered/diminutive peroneal arteries.4.Bilateral anterior tibial artery chronic occlusions. NONVASCULAR:1.Mild coronary mainly with right greater than left largebilateral pleural effusions, diffuse soft tissue edema, mesenteric edema and trace ascites, fluid overload.2.1.2 cm opacity seen within the anterior right middle lobe, may represent atelectasis, scarring, infectious process and/or pulmonary nodule. Recommend nonemergent CT chest for full evaluation ofthe lungs.3.Moderate colorectal fecal retention. Signed: Rodrigue Mar MDReport Verified Date/Time:11/26/2022 12:44:26 Reading Location: [facility] Radiology Reading Room POCT- GLUCOSE [id number] 12:00:53 Test Item Value Reference Range Interpretation Comments POC-GLUCOSE METER 129 mg/dL 70-110 H : Notified RN/MD: [facility] (test code AT [facility] [address] = 1538) [facility] [address]: Aligner Typewriter/Techni corazon ID = [id number] for David h, Lorita SODIUM, RANDOM [id number] 11:21:25 Test Item Value Reference Range Interpretation Comments SODIUM URINE ([facility]) (test code = 98 meq/L 243) Reference Range: No NormalsOperator ID - [id number] 07:33:11 Test Item Value Reference Range Interpretation Comments POC-GLUCOSE METER 145 mg/dL 70-110 H : TESTED A T [facility]17 [facility] (test code [facility] [place] [address] [facility], = 1538) [facility] [place] [address]: Aligner Typewriter/Techni corazon ID = [id number] for Kerri Harris CBC W/PLT COUNT & AUTO [id number] 01:33:51 Test Item Value Reference Range Interpretation Comments WHITE BLOOD CELL COUNT (BEAKER) 8.3 K/ L 4.0-10.0 (test code = 775) RED BLOOD CELL COUNT (BEAKER) 2.78 M/ L 4.20-5.80 L (test code = 761) HEMOGLOBIN (BEAKER) (test code = 7.9 GM/DL 13.0-16.8 L 410) HEMATOCRIT (BEAKER) (test code = 25.0 % 36.0-50.0 L 411) MEAN CORPUSCULAR VOLUME (BEAKER) 90 fL 82-99 (test code = 753) MEAN CORPUSCULAR HEMOGLOBIN 28.4 pg 27.0-33.0 (BEAKER) (test code = 751) MEAN CORPUSCULAR HEMOGLOBIN CONC 31.6 GM/DL 32.0-36.0 L (BEAKER) (test code = 752) RED CELL DISTRIBUTION WIDTH 19.2 % 12.0-15.0 H (BEAKER) (test code = 412) PLATELET COUNT (BEAKER) (test 146 K/CU MM 150-430 L code = 756) MEAN PLATELET VOLUME (BEAKER) 11.1 fL 6.0-11.5 (test code = 754) NUCLEATED RED BLOOD CELLS 0 /100 WBC 0-0 (BEAKER) (test code = 413) NEUTROPHILS RELATIVE PERCENT 85 % (BEAKER) (test code = 429) LYMPHOCYTES RELATIVE PERCENT 4 % (BEAKER) (test code = 430) MONOCYTES RELATIVE PERCENT 8 % (BEAKER) (test code = 431) EOSINOPHILS RELATIVE PERCENT 3 % (BEAKER) (test code = 432) BASOPHILS RELATIVE PERCENT 0 % (BEAKER) (test code = 437) NEUTROPHILS ABSOLUTE COUNT 7.05 K/ L 1.80-8.00 (BEAKER) (test code = 670) LYMPHOCYTES ABSOLUTE COUNT 0.35 K/ L 1.48-4.50 L (BEAKER) (test code = 414) MONOCYTES ABSOLUTE COUNT (BEAKER) 0.65 K/ L 0.00-1.30 (test code = 415) EOSINOPHILS ABSOLUTE COUNT 0.21 K/ L 0.00-0.50 (BEAKER) (test code = 416) BASOPHILS ABSOLUTE COUNT (BEAKER) 0.03 K/ L 0.00-0.20 (test code = 417) IMMATURE GRANULOCYTES-RELATIVE 0.40 % 0.00-0.00 H PERCENT (BEAKER) (test code = 2801) COMPREHENSIVE METABOLIC [id number] 01:02:06 Test Item Value Reference Range Interpretation Comments TOTAL PROTEIN 5.4 gm/dL 6.0-8.5 L (BEAKER) (test code = 770) ALBUMIN (BEAKER) 2.5 g/dL 3.5-5.0 L (test code = 1145) ALKALINE 63 U/L 30-115 PHOSPHATASE (BEAKER) (test code = 346) BILIRUBIN TOTAL 1.5 mg/dL 0.1-1.2 H (BEAKER) (test code = 377) SODIUM (BEAKER) 141 meq/L 135-148 (test code = 381) POTASSIUM (BEAKER) 3.6 meq/L 3.6-5.5 (test code = 379) CHLORIDE (BEAKER) 110 meq/L 98-106 H (test code = 382) CO2 (BEAKER) (test 21 meq/L 20-29 code = 355) BLOOD UREA 22 mg/dL 10-26 NITROGEN (BEAKER) (test code = 354) CREATININE 1.38 mg/dL 0.50-1.20 H (BEAKER) (test code = 358) GLUCOSE RANDOM 124 mg/dL 70-110 H (BEAKER) (test code = 652) CALCIUM (BEAKER) 7.8 mg/dL 8.5-10.5 L (test code = 697) AST (SGOT) 24 U/L 5-40 (BEAKER) (test code = 353) ALT (SGPT) 17 U/L 5-50 (BEAKER) (test code = 347) EGFR (BEAKER) 53 Interpretatio n of eGFR (test code = 1092) mL/min/1.[address] age Description sq m Result G1 Vashti l or high >=90 G2 Mildly decreased 60-89 G3a Mildl y to moderately 45-5 9 G3b Moderately to s everely 30-44 G4 Severl y decreased 15-29 G5 Kidney failure <15Reported eGF R is based on the CKD-EPI 2021 equation that d oes not use a race coefficientEsti mated GFR is not as accur ate as Creatinine Henny wooten in predicting glom erular filtration rate . Estimated GFR is not appl icable for dialysis patien ts Aligner Typewriter ID - LITOOperator ID - LITOOperator ID - LITOOperator ID - LITOOperator ID - LITOOperator ID - LITOOperator ID - LITOOperator ID - LITOOperator ID - LITOOperator ID - LITOOperator ID - LITOOperator ID - LITOOperator ID - LITOOperator ID - LITOOperator ID - LITOOperator ID - [id number] 01:00:49 Test Item Value Reference Range Interpretation Comments MAGNESIUM (BEAKER) (test code = 2.2 mg/dL 1.5-3.0 627) Aligner Typewriter ID - LITOOperator ID - LITOOperator ID - LITOOperator ID - CLARISSA PROTHROMBIN TIME/[id number] 00:59:04 Test Item Value Reference Range Interpretation Comments PROTIME (BEAKER) 13.0 seconds 9.3-12.0 H Final Infor mation (test code = 759) (Auto Outp ut) INR (BEAKER) (test 1.20 <=5.90 Final Inf ormation code = 370) (Auto Output) RECOMMENDED COUMADIN/WARFARIN INR THERAPY RANGESSTANDARD DOSE: 2.0 - 3.0 Includes: PROPHYLAXIS for venous thrombosis, systemic embolization; TREATMENT for venous thrombosis and/or pulmonary embolus.HIGH RISK: Target INR is 2.5-3.5 for patients with mechanical heart valves.[id number] 00:57:06 Test Item Value Reference Range Interpretation Comments PHOSPHORUS (BEAKER) (test code = 2.4 mg/dL 2.5-4.5 L 604) Aligner Typewriter ID - LITOCALCIUM, [id number] 00:37:56 Test Item Value Reference Range Interpretation Comments CALCIUM IONIZED (BEAKER) (test 1.10 mmol/L 1.12-1.27 L code = 698) PH, BLOOD (BEAKER) (test code = 7.35 1810) POCT-GLUCOSE [id number] 22:21:42 Test Item Value Reference Range Interpretation Comments POC-GLUCOSE METER 120 mg/dL 70-110 H : TESTED A T [facility] 1317 (BEAKER) (test code [facility], = 1538) [facility] [id number]: Aligner Typewriter/Techni corazon ID = [id number] for Kerri Harris POCT-GLUCOSE [id number] 17:05:30 Test Item Value Reference Range Interpretation Comments POC-GLUCOSE METER 131 mg/dL 70-110 H : Notified RN/MD: TESTED (BEAKER) (test code AT [facility] [address] [place] = 1538) [facility] [id number]: Aligner Typewriter/Techni corazon ID = [id number] for David h, Toniaismael CBC (HEMOGRAM ONLY)2022-11-25 16:34:48 Test Item Value Reference Range Interpretation Comments WHITE BLOOD CELL COUNT (BEAKER) 9.6 K/ L 4.0-10.0 (test code = 775) RED BLOOD CELL COUNT (BEAKER) 2.99 M/ L 4.20-5.80 L (test code = 761) HEMOGLOBIN (BEAKER) (test code = 8.6 GM/DL 13.0-16.8 L 410) HEMATOCRIT (BEAKER) (test code = 26.7 % 36.0-50.0 L 411) MEAN CORPUSCULAR VOLUME (BEAKER) 89 fL 82-99 (test code = 753) MEAN CORPUSCULAR HEMOGLOBIN 28.8 pg 27.0-33.0 (BEAKER) (test code = 751) MEAN CORPUSCULAR HEMOGLOBIN CONC 32.2 GM/DL 32.0-36.0 (BEAKER) (test code = 752) RED CELL DISTRIBUTION WIDTH 19.1 % 12.0-15.0 H (BEAKER) (test code = 412) PLATELET COUNT (BEAKER) (test 154 K/CU MM 150-430 code = 756) MEAN PLATELET VOLUME (BEAKER) 10.5 fL 6.0-11.5 (test code = 754) NUCLEATED RED BLOOD CELLS 0 /100 WBC 0-0 (BEAKER) (test code = 413) [id number] 13:33:26 Test Item Value Reference Range Interpretation Comments FIBRINOGEN LEVEL 347 mg/dl 200-400 Final Infor mation (BEAKER) (test code = (Auto Output) 657) VENOUS DOPPLER ARM, [id number] 12:56:00Reason for exam:->rule out DVT [facility] CENTERName: AYDEN VU : 1945 Sex: MFINAL REPORT Left upper extremity venous Doppler dated 11/25/2022. COMMENT: Doppler ultrasound examination of the left upper extremity was performed. The left radial, ulnar, brachial, basilic,and subclavian veins are patent without filling defect. There is normal compressibility and augmentation in the veins of the left upper extremity. The left cephalic vein is not visualized secondary to subcutaneous soft tissue edema. IMPRESSION: Unremarkable Doppler ultrasound of the veins of the left upper extremity without thrombosis. Signed: Johann Cisneros MDReport Verified Date/Time: 11/25/2022 12:56:53 POCT-GLUCOSE [id number] 11:44:42 Test Item Value Reference Range Interpretation Comments POC-GLUCOSE METER 121 mg/dL 70-110 H : TESTED A T [facility] 1317 (BEAKER) (test code [address], = 1538) [facility] [address]: Aligner Typewriter/Techni corazon ID = [id number] for Sridhar Daniel U/S, TESTICULAR (SCROTUM)2022-11-25 09:27:00Reason for exam:->hematoma of scrotum, rule out testicular compression [facility] 1945 Sex: MFINAL REPORT EXAMINATION: U/S, TESTICULAR (SCROTUM). INDICATION: Hematoma of scrotum COMPARISON: Testicular ultrasound 11/19/2022 FINDINGS: Right scrotum:The right testicle measures 3.4 x 2.5 x 2.3 cm, previously measured 3.4 x 2.5 x 2.5 cm and appears homogeneous with normal Doppler flow. No microlithiasis. No suspicious testicular lesions. The right epididymal head measures 1.0 cm. Epididymal head cyst/spermatocele is again seen measuring up to 2 mm. Left scrotum:The left testicle measures 3.2 x 2.0 x 2.8 cm, previously measured 3.1 x 2.2 x 2.2 cm and appears homogeneous with normal Doppler flow. No microlithiasis. No suspicious testicular lesions. The left epididymal head measures 0.8 cm. Varicocele: NoneHydrocele: Moderate bilateral hydroceles are again seen.Other: Unchanged scrotal skin thickening and edema. IMPRESSION:1.No suspicious testicular mass is identified.2.No testicular torsion.3.No significant change in moderate bilateral hydroceles.4.Unchanged marked thickening and edema of the scrotal wall. Signed: Jorden Avila MDReport Verified Date/Time: 11/25/2022 09:27:03 Reading Location: [facility] Radiology Reading Room -GLUCOSE [id number] 07:39:51 Test Item Value Reference Range Interpretation Comments POC-GLUCOSE METER 122 mg/dL 70-110 H : Notified RN/MD: TESTED (BEAKER) (test code AT [facility] [address] = 1538) [facility] [address]: Aligner Typewriter/Techni corazon ID = [id number] for David Aditi scott BASIC METABOLIC [id number] 04:16:04 Test Item Value Reference Range Interpretation Comments SODIUM (BEAKER) 141 meq/L 135-148 (test code = 381) POTASSIUM 3.3 meq/L 3.6-5.5 L (BEAKER) (test code = 379) CHLORIDE (BEAKER) 111 meq/L 98-106 H (test code = 382) CO2 (BEAKER) 17 meq/L 20-29 L (test code = 355) BLOOD UREA 23 mg/dL 10-26 NITROGEN (BEAKER) (test code = 354) CREATININE 1.36 mg/dL 0.50-1.20 H (BEAKER) (test code = 358) GLUCOSE RANDOM 134 mg/dL 70-110 H (BEAKER) (test code = 652) CALCIUM (BEAKER) 7.8 mg/dL 8.5-10.5 L (test code = 697) EGFR (BEAKER) 54 Interpretatio n of eGFR (test code = mL/min/1.73 values Stage De scription 1092) sq m Result G1 Vashti l or high >=90 G2 Mildly decreased 60-89 G3a Mildl y to moderately 45-5 9 G3b Moderately to s everely 30-44 G4 Severl y decreased 15-29 G5 Kidney failure <15Reported eGF R is based on the CKD-EPI 2020 equation that d oes not use a race coefficientEsti mated GFR is not as accur ate as Creatinine Henny je in predicting glom erular filtration rate . Estimated GFR is not appl icable for dialysis patien ts Aligner Typewriter ID - [id number] ID - [id number] ID - [id number] ID - [id number] ID - SREU52Jkjnnjyy ID - GEPH02Nqetnkkw ID - OLXV23Oljykjjs ID - [id number] ID - PXTA93Wpgjyloe ID - [id number] 04:09:06 Test Item Value Reference Range Interpretation Comments MAGNESIUM (BEAKER) (test code = 2.2 mg/dL 1.5-3.0 627) Aligner Typewriter ID - [id number] ID - [id number] ID - [id number] ID - [id number] 04:06:19 Test Item Value Reference Range Interpretation Comments PHOSPHORUS (BEAKER) (test code = 2.7 mg/dL 2.5-4.5 604) Aligner Typewriter ID - [id number] (HEMOGRAM ONLY)2022-11-25 03:44:34 Test Item Value Reference Range Interpretation Comments WHITE BLOOD CELL COUNT (BEAKER) 9.6 K/ L 4.0-10.0 (test code = 775) RED BLOOD CELL COUNT (BEAKER) 2.87 M/ L 4.20-5.80 L (test code = 761) HEMOGLOBIN (BEAKER) (test code = 8.2 GM/DL 13.0-16.8 L 410) HEMATOCRIT (BEAKER) (test code = 25.4 % 36.0-50.0 L 411) MEAN CORPUSCULAR VOLUME (BEAKER) 89 fL 82-99 (test code = 753) MEAN CORPUSCULAR HEMOGLOBIN 28.6 pg 27.0-33.0 (BEAKER) (test code = 751) MEAN CORPUSCULAR HEMOGLOBIN CONC 32.3 GM/DL 32.0-36.0 (BEAKER) (test code = 752) RED CELL DISTRIBUTION WIDTH 18.7 % 12.0-15.0 H (BEAKER) (test code = 412) PLATELET COUNT (BEAKER) (test 158 K/CU MM 150-430 code = 756) MEAN PLATELET VOLUME (BEAKER) 10.7 fL 6.0-11.5 (test code = 754) NUCLEATED RED BLOOD CELLS 0 /100 WBC 0-0 (BEAKER) (test code = 413) POCT-GLUCOSE [id number] 00:09:04 Test Item Value Reference Range Interpretation Comments POC-GLUCOSE METER 141 mg/dL 70-110 H : TESTED A T [facility] 1317 (BEAKER) (test code [facility], = 1538) [place] [id number]: Aligner Typewriter/Techni corazon ID = [id number] for Sid Almaraz POCT-GLUCOSE [id number] 18:28:19 Test Item Value Reference Range Interpretation Comments POC-GLUCOSE METER 134 mg/dL 70-110 H : TESTED A T [facility] 1317 (BEAKER) (test code [facility], = 1538) [place] [address]: Aligner Typewriter/Techni corazon ID = [id number] for Grace Montero POCT-GLUCOSE [id number] 12:47:22 Test Item Value Reference Range Interpretation Comments POC-GLUCOSE METER 105 mg/dL 70-110 : TESTED A T [facility] 1317 (BEAKER) (test code [facility], = 1538) [place] [id number]: Aligner Typewriter/Techni corazon ID = [id number] for Sowmya Mcdonald CREATINE KINASE (CK)2022-11-24 12:03:31 Test Item Value Reference Range Interpretation Comments CREATINE KINASE TOTAL (BEAKER) (test 277 U/L 40-250 H code = 380) Aligner Typewriter ID - [id number] DEHYDROGENASE (LDH)2022-11-24 11:58:49 Test Item Value Reference Range Interpretation Comments LACTATE DEHYDROGENASE (BEAKER) (test 333 U/L 107-206 H code = 635) Aligner Typewriter ID - [id number] LEVEL, [id number] 09:25:41 Test Item Value Reference Range Interpretation Comments VANCOMYCIN TROUGH (BEAKER) (test 21.0 ug/mL 10.0-20.0 H code = 522) Aligner Typewriter ID - [id number] FUNCTION [id number] 07:46:24 Test Item Value Reference Range Interpretation Comments TOTAL PROTEIN (BEAKER) (test code = 5.7 gm/dL 6.0-8.5 L 770) ALBUMIN (BEAKER) (test code = 1145) 2.6 g/dL 3.5-5.0 L BILIRUBIN TOTAL (BEAKER) (test code 1.7 mg/dL 0.1-1.2 H = 377) BILIRUBIN DIRECT (BEAKER) (test 1.1 mg/dL 0.0-0.4 H code = 706) ALKALINE PHOSPHATASE (BEAKER) (test 73 U/L 30-115 code = 346) AST (SGOT) (BEAKER) (test code = 33 U/L 5-40 353) ALT (SGPT) (BEAKER) (test code = 21 U/L 5-50 347) Aligner Typewriter ID - [id number] ID - [id number] ID - [id number] ID - [id number] ID - [id number] ID - [id number] ID - [id number] METABOLIC [id number] 04:59:21 Test Item Value Reference Range Interpretation Comments SODIUM (BEAKER) 141 meq/L 135-148 (test code = 381) POTASSIUM 3.7 meq/L 3.6-5.5 (BEAKER) (test code = 379) CHLORIDE (BEAKER) 111 meq/L 98-106 H (test code = 382) CO2 (BEAKER) 18 meq/L 20-29 L (test code = 355) BLOOD UREA 21 mg/dL 10-26 NITROGEN (BEAKER) (test code = 354) CREATININE 1.23 mg/dL 0.50-1.20 H (BEAKER) (test code = 358) GLUCOSE RANDOM 128 mg/dL 70-110 H (BEAKER) (test code = 652) CALCIUM (BEAKER) 7.8 mg/dL 8.5-10.5 L (test code = 697) EGFR (BEAKER) 61 Interpretatio n of eGFR (test code = mL/min/1.73 values Stage De scription 1092) sq m Result G1 Vashti l or high >=90 G2 Mildly decreased 60-89 G3a Mildl y to moderately 45-5 9 G3b Moderately to s everely 30-44 G4 Severl y decreased 15-29 G5 Kidney failure <15Reported eGF R is based on the CKD-EPI 2020 equation that d oes not use a race coefficientEsti mated GFR is not as accur ate as Creatinine Henny je in predicting glom erular filtration rate . Estimated GFR is not appl icable for dialysis patien ts Aligner Typewriter ID - LITOOperator ID - LITOOperator ID - LITOOperator ID - LITOOperator ID - LITOOperator ID - LITOOperator ID - LITOOperator ID - LITOOperator ID - LITOOperator ID - [id number] (HEMOGRAM ONLY)2022-11-24 04:41:14 Test Item Value Reference Range Interpretation Comments WHITE BLOOD CELL COUNT (BEAKER) 8.9 K/ L 4.0-10.0 (test code = 775) RED BLOOD CELL COUNT (BEAKER) 3.29 M/ L 4.20-5.80 L (test code = 761) HEMOGLOBIN (BEAKER) (test code = 9.4 GM/DL 13.0-16.8 L 410) HEMATOCRIT (BEAKER) (test code = 29.2 % 36.0-50.0 L 411) MEAN CORPUSCULAR VOLUME (BEAKER) 89 fL 82-99 (test code = 753) MEAN CORPUSCULAR HEMOGLOBIN 28.6 pg 27.0-33.0 (BEAKER) (test code = 751) MEAN CORPUSCULAR HEMOGLOBIN CONC 32.2 GM/DL 32.0-36.0 (BEAKER) (test code = 752) RED CELL DISTRIBUTION WIDTH 18.6 % 12.0-15.0 H (BEAKER) (test code = 412) PLATELET COUNT (BEAKER) (test 166 K/CU MM 150-430 code = 756) MEAN PLATELET VOLUME (BEAKER) 11.5 fL 6.0-11.5 (test code = 754) NUCLEATED RED BLOOD CELLS 0 /100 WBC 0-0 (BEAKER) (test code = 413) [id number] 04:40:13 Test Item Value Reference Range Interpretation Comments MAGNESIUM (BEAKER) (test code = 2.3 mg/dL 1.5-3.0 627) Aligner Typewriter ID - LITOOperator ID - LITOOperator ID - LITOOperator ID - CLARISSA [id number] 04:37:33 Test Item Value Reference Range Interpretation Comments PHOSPHORUS (BEAKER) (test code = 3.3 mg/dL 2.5-4.5 604) Aligner Typewriter ID - LITOBASIC METABOLIC [id number] 21:08:01 Test Item Value Reference Range Interpretation Comments SODIUM (BEAKER) 140 meq/L 135-148 (test code = 381) POTASSIUM 3.9 meq/L 3.6-5.5 (BEAKER) (test code = 379) CHLORIDE (BEAKER) 109 meq/L 98-106 H (test code = 382) CO2 (BEAKER) 19 meq/L 20-29 L (test code = 355) BLOOD UREA 21 mg/dL 10-26 NITROGEN (BEAKER) (test code = 354) CREATININE 1.32 mg/dL 0.50-1.20 H (BEAKER) (test code = 358) GLUCOSE RANDOM 122 mg/dL 70-110 H (BEAKER) (test code = 652) CALCIUM (BEAKER) 8.0 mg/dL 8.5-10.5 L (test code = 697) EGFR (BEAKER) 56 Interpretatio n of eGFR (test code = mL/min/1.73 values Stage De scription 1092) sq m Result G1 Vashti l or high >=90 G2 Mildly decreased 60-89 G3a Mildl y to moderately 45-5 9 G3b Moderately to s everely 30-44 G4 Severl y decreased 15-29 G5 Kidney failure <15Reported eGF R is based on the CKD-EPI 2020 equation that d oes not use a race coefficientEsti mated GFR is not as accur ate as Creatinine Henny wooten in predicting glom erular filtration rate . Estimated GFR is not appl icable for dialysis patien ts Aligner Typewriter ID - [id number] ID - [id number] ID - [id number] ID - [id number] - HZBCRZ447Ebuivzpp ID - [id number] ID - [id number] ID - [id number] ID - [id number] ID - [id number] 20:59:08 Test Item Value Reference Range Interpretation Comments MAGNESIUM (BEAKER) (test code = 2.4 mg/dL 1.5-3.0 627) Aligner Typewriter ID - [id number] ID - [id number] ID - [id number] ID - [id number] 20:56:30 Test Item Value Reference Range Interpretation Comments PHOSPHORUS (BEAKER) (test code = 3.4 mg/dL 2.5-4.5 604) Aligner Typewriter ID - [id number] 20:52:45 Test Item Value Reference Range Interpretation Comments PROTIME (BEAKER) (test 13.9 seconds 9.3-12.0 H Final Information code = 759) (Auto Output) INR (BEAKER) (test 1.29 <=5.90 Final Inf ormation code = 370) (Auto Output) PARTIAL THROMBOPLASTIN 31.0 seconds 23.0-35.0 Final Information TIME (BEAKER) (test (Auto Ou tput) code = 760) RECOMMENDED COUMADIN/WARFARIN INR THERAPY RANGESSTANDARD DOSE: 2.0 - 3.0 Includes: PROPHYLAXIS for venous thrombosis, systemic embolization; TREATMENT for venous thrombosis and/or pulmonary embolus.HIGH RISK: Target INR is 2.5-3.5 for patients with mechanical heart valves.CBC W/PLT COUNT & AUTO [id number] 20:40:06 Test Item Value Reference Range Interpretation Comments WHITE BLOOD CELL COUNT (BEAKER) 10.1 K/ L 4.0-10.0 H (test code = 775) RED BLOOD CELL COUNT (BEAKER) 3.35 M/ L 4.20-5.80 L (test code = 761) HEMOGLOBIN (BEAKER) (test code = 9.7 GM/DL 13.0-16.8 L 410) HEMATOCRIT (BEAKER) (test code = 30.0 % 36.0-50.0 L 411) MEAN CORPUSCULAR VOLUME (BEAKER) 90 fL 82-99 (test code = 753) MEAN CORPUSCULAR HEMOGLOBIN 29.0 pg 27.0-33.0 (BEAKER) (test code = 751) MEAN CORPUSCULAR HEMOGLOBIN CONC 32.3 GM/DL 32.0-36.0 (BEAKER) (test code = 752) RED CELL DISTRIBUTION WIDTH 18.3 % 12.0-15.0 H (BEAKER) (test code = 412) PLATELET COUNT (BEAKER) (test 156 K/CU MM 150-430 code = 756) MEAN PLATELET VOLUME (BEAKER) 10.3 fL 6.0-11.5 (test code = 754) NUCLEATED RED BLOOD CELLS 0 /100 WBC 0-0 (BEAKER) (test code = 413) NEUTROPHILS RELATIVE PERCENT 93 % (BEAKER) (test code = 429) LYMPHOCYTES RELATIVE PERCENT 3 % (BEAKER) (test code = 430) MONOCYTES RELATIVE PERCENT 4 % (BEAKER) (test code = 431) EOSINOPHILS RELATIVE PERCENT 1 % (BEAKER) (test code = 432) BASOPHILS RELATIVE PERCENT 0 % (BEAKER) (test code = 437) NEUTROPHILS ABSOLUTE COUNT 9.33 K/ L 1.80-8.00 H (BEAKER) (test code = 670) LYMPHOCYTES ABSOLUTE COUNT 0.25 K/ L 1.48-4.50 L (BEAKER) (test code = 414) MONOCYTES ABSOLUTE COUNT (BEAKER) 0.35 K/ L 0.00-1.30 (test code = 415) EOSINOPHILS ABSOLUTE COUNT 0.06 K/ L 0.00-0.50 (BEAKER) (test code = 416) BASOPHILS ABSOLUTE COUNT (BEAKER) 0.03 K/ L 0.00-0.20 (test code = 417) IMMATURE GRANULOCYTES-RELATIVE 0.50 % 0.00-0.00 H PERCENT (BEAKER) (test code = 2801) CALCIUM, [id number] 20:39:16 Test Item Value Reference Range Interpretation Comments CALCIUM IONIZED (BEAKER) (test 1.12 mmol/L 1.12-1.27 code = 698) PH, BLOOD (BEAKER) (test code = 7.32 1810) RAD, CHEST, 1 VIEW, NON [id number] 20:07:00Reason for exam:->Central line placementShould this be performed at the bedside?->Yes [facility] CENTER[facility] AYDEN VU : 1945 Sex: MFINAL REPORT Chest one view. Clinical history: Central line placement Comparison: 11/23/2022 Discussion: A frontal chest is provided. Enlarged cardiac silhouette. A right IJ line has been placed, the tip projects over the distal SVC. Again seen is a left-sided dual-lead pacemaker. There are small to moderate bilateral pleural effusions. No pneumothorax. Signed: Rosana Patricia Verified Date/Time: 11/23/2022 20:07:36 HEMOGLOBIN AND [id number] 18:21:31 Test Item Value Reference Range Interpretation Comments HEMOGLOBIN (BEAKER) (test code = 10.0 GM/DL 13.0-16.8 L 410) HEMATOCRIT (BEAKER) (test code = 29.0 % 36.0-50.0 L 411) BLOOD GAS, [id number] 18:21:31 Test Item Value Reference Range Interpretation Comments PH ARTERIAL (BEAKER) (test code = 7.30 7.35-7.45 L 383) PCO2 ARTERIAL (BEAKER) (test code 39 mm Hg 35-45 = 384) PO2 ARTERIAL (BEAKER) (test code 92 mm Hg 80-90 H = 385) O2 SATURATION ARTERIAL (BEAKER) 96.7 % 96.0-97.0 (test code = 386) HCO3 ARTERIAL (BEAKER) (test code 19 mmol/L 21-29 L = 388) BASE EXCESS ARTERIAL (BEAKER) -7.2 mmol/L -2.0-3.0 L (test code = 387) PATIENT TEMPERATURE (BEAKER) 36.1 (test code = 1818) FIO2 (BEAKER) (test code = 1819) 50.0 STAT-LAB IONIZED [id number] 18:21:25 Test Item Value Reference Range Interpretation Comments FILTER IONIZED CALCIUM (BEAKER) 1.08 nnol/L (test code = 1854) Reference Range: No NormalsSTAT-LAB IONIZED [id number] 17:10:27 Test Item Value Reference Range Interpretation Comments FILTER IONIZED CALCIUM (BEAKER) 1.03 nnol/L (test code = 1854) Reference Range: No NormalsBLOOD GAS, [id number] 17:10:01 Test Item Value Reference Range Interpretation Comments PH ARTERIAL (BEAKER) (test code = 7.38 7.35-7.45 383) PCO2 ARTERIAL (BEAKER) (test code 35 mm Hg 35-45 = 384) PO2 ARTERIAL (BEAKER) (test code 134 mm Hg 80-90 H = 385) O2 SATURATION ARTERIAL (BEAKER) 98.6 % 96.0-97.0 H (test code = 386) HCO3 ARTERIAL (BEAKER) (test code 20 mmol/L 21-29 L = 388) BASE EXCESS ARTERIAL (BEAKER) -4.5 mmol/L -2.0-3.0 L (test code = 387) PATIENT TEMPERATURE (BEAKER) 36.1 (test code = 1818) FIO2 (BEAKER) (test code = 1819) 50 HEMOGLOBIN AND [id number] 17:08:50 Test Item Value Reference Range Interpretation Comments HEMOGLOBIN (BEAKER) (test code = 9.7 GM/DL 13.0-16.8 L 410) HEMATOCRIT (BEAKER) (test code = 29.0 % 36.0-50.0 L 411) POCT-GLUCOSE [id number] 15:43:35 Test Item Value Reference Range Interpretation Comments POC-GLUCOSE METER 102 mg/dL 70-110 : TESTED A T [facility] (BEAKER) (test code [address], = 1538) [facility] [place] [address]: Aligner Typewriter/Techni corazon ID = [id number] for Gong , Zachary RAD, CHEST, 1 VIEW, NON [id number] 15:19:00Reason for exam:->edema and effusion for surgery todayhShould this be performed at the bedside?->Yes [facility] CENTERName: AYDEN VU : 1945 Sex: MFINAL REPORT RAD, CHEST, 1 VIEW, NON DEPT TECHNIQUE: Frontal view(s) of the chest. INDICATION: edema and effusion for surgery today COMPARISON: Chest radiograph 11/20/2022 FINDINGS/IMPRESSION:Lines/Tubes: None Lungs/pleura: No convincing change in bilateral parenchymal opacities. No pleural effusion. No pneumothorax. Heart and Mediastinum: Left chest wall cardiac device. Heart is enlarged. Soft Tissues and Bones: Unchanged. Signed: Irvin Seo Verified Date/Time: 11/23/2022 15:19:09 Reading Location: [facility] Radiology Reading Room POCT-GLUCOSE [id number] 06:00:11 Test Item Value Reference Range Interpretation Comments POC-GLUCOSE METER 109 mg/dL 70-110 : TESTED A T [facility] 1317 (BEAKER) (test code [address], = 1538) [facility] [place] [address]: Aligner Typewriter/Techni corazon ID = [id number] for Sowmya Davidson BASIC METABOLIC [id number] 05:40:30 Test Item Value Reference Range Interpretation Comments SODIUM (BEAKER) 138 meq/L 135-148 (test code = 381) POTASSIUM 3.6 meq/L 3.6-5.5 (BEAKER) (test code = 379) CHLORIDE (BEAKER) 108 meq/L 98-106 H (test code = 382) CO2 (BEAKER) 21 meq/L 20-29 (test code = 355) BLOOD UREA 21 mg/dL 10-26 NITROGEN (BEAKER) (test code = 354) CREATININE 1.44 mg/dL 0.50-1.20 H (BEAKER) (test code = 358) GLUCOSE RANDOM 103 mg/dL 70-110 (BEAKER) (test code = 652) CALCIUM (BEAKER) 7.9 mg/dL 8.5-10.5 L (test code = 697) EGFR (BEAKER) 50 Interpretatio n of eGFR (test code = mL/min/1.73 values Stage De scription 1092) sq m Result G1 Vashti l or high >=90 G2 Mildly decreased 60-89 G3a Mildl y to moderately 45-5 9 G3b Moderately to s everely 30-44 G4 Severl y decreased 15-29 G5 Kidney failure <15Reported eGF R is based on the CKD-EPI 2020 equation that d oes not use a race coefficientEsti mated GFR is not as accur ate as Creatinine Henny wooten in predicting glom erular filtration rate . Estimated GFR is not appl icable for dialysis patien ts Aligner Typewriter ID - [id number] ID - [id number] ID - CLQUNBQTE210Dxbiaqcx ID - [id number] ID - NGWPBELPN745Yemspexx ID - VLUBUZHXF966Sexdzuoq ID - ELNWRKCCN486Ndhivctj ID - ZNBQGXOSL704Xwszyylg ID - CYCZZDQMK526Wcdxhvyd ID - [id number] TIME/[id number] 05:39:37 Test Item Value Reference Range Interpretation Comments PROTIME (BEAKER) 12.9 seconds 9.3-12.0 H Final Infor mation (test code = 759) (Auto Outp ut) INR (BEAKER) (test 1.19 <=5.90 Final Inf ormation code = 370) (Auto Output) RECOMMENDED COUMADIN/WARFARIN INR THERAPY RANGESSTANDARD DOSE: 2.0 - 3.0 Includes: PROPHYLAXIS for venous thrombosis, systemic embolization; TREATMENT for venous thrombosis and/or pulmonary embolus.HIGH RISK: Target INR is 2.5-3.5 for patients with mechanical heart valves.[id number] 05:38:14 Test Item Value Reference Range Interpretation Comments MAGNESIUM (BEAKER) (test code = 2.3 mg/dL 1.5-3.0 627) Aligner Typewriter ID - [id number] ID - [id number] ID - [id number] ID - [id number] 05:34:54 Test Item Value Reference Range Interpretation Comments PHOSPHORUS (BEAKER) (test code = 2.7 mg/dL 2.5-4.5 604) Aligner Typewriter ID - [id number] LEVEL, [id number] 05:34:12 Test Item Value Reference Range Interpretation Comments VANCOMYCIN RANDOM (BEAKER) (test 22.5 ug/mL code = 523) Reference Range: No NormalsOperator ID - [id number] (HEMOGRAM ONLY) 2022-11-23 05:32:01 Test Item Value Reference Range Interpretation Comments WHITE BLOOD CELL COUNT (BEAKER) 7.7 K/ L 4.0-10.0 (test code = 775) RED BLOOD CELL COUNT (BEAKER) 2.55 M/ L 4.20-5.80 L (test code = 761) HEMOGLOBIN (BEAKER) (test code = 7.4 GM/DL 13.0-16.8 L 410) HEMATOCRIT (BEAKER) (test code = 23.1 % 36.0-50.0 L 411) MEAN CORPUSCULAR VOLUME (BEAKER) 91 fL 82-99 (test code = 753) MEAN CORPUSCULAR HEMOGLOBIN 29.0 pg 27.0-33.0 (BEAKER) (test code = 751) MEAN CORPUSCULAR HEMOGLOBIN CONC 32.0 GM/DL 32.0-36.0 (BEAKER) (test code = 752) RED CELL DISTRIBUTION WIDTH 18.6 % 12.0-15.0 H (BEAKER) (test code = 412) PLATELET COUNT (BEAKER) (test 151 K/CU MM 150-430 code = 756) MEAN PLATELET VOLUME (BEAKER) 11.5 fL 6.0-11.5 (test code = 754) NUCLEATED RED BLOOD CELLS 0 /100 WBC 0-0 (BEAKER) (test code = 413) POCT-GLUCOSE [id number] 20:44:51 Test Item Value Reference Range Interpretation Comments POC-GLUCOSE METER 116 mg/dL 70-110 H : TESTED A T SLSL 1317 (BEAKER) (test code [facility], [place] NT [facility], = 1538) [place] [id number]: Aligner Typewriter/Techni corazon ID = [id number] for Sowmya Davidson POCT-GLUCOSE [id number] 16:36:01 Test Item Value Reference Range Interpretation Comments POC-GLUCOSE METER 108 mg/dL 70-110 : TESTED A T SLSL 1317 (BEAKER) (test code [facility] [place] [facility], = 1538) [place] [id number]: Aligner Typewriter/Techni corazon ID = [id number] for Jesica Bateman POCT-GLUCOSE [id number] 12:19:49 Test Item Value Reference Range Interpretation Comments POC-GLUCOSE METER 118 mg/dL 70-110 H : TESTED A T SLSL 1317 (BEAKER) (test code [place] NT [facility], = 1538) [place] [id number]: Aligner Typewriter/Techni corazon ID = [id number] for Jesica Bateman VANCOMYCIN LEVEL, [id number] 11:26:35 Test Item Value Reference Range Interpretation Comments VANCOMYCIN TROUGH (BEAKER) (test code < ug/mL 10.0-20.0 L = 522) Aligner Typewriter ID - ADMINPOCT-GLUCOSE [id number] 06:38:15 Test Item Value Reference Range Interpretation Comments POC-GLUCOSE METER 119 mg/dL 70-110 H : TESTED A T SLSL 1317 (BEAKER) ([facility] 15[facility] [place] [id number]: Aligner Typewriter/Techni corazon ID = [id number] for Becky oLndono POCT-GLUCOSE [id number] 21:22:35 Test Item Value Reference Range Interpretation Comments POC-GLUCOSE METER 136 mg/dL 70-110 H : TESTED A T SLSL 1317 (BEAKER) (test code [facility] [place], = 1538) [place] [id number]: Aligner Typewriter/Techni corazon ID = [id number] for Brow n, Becky POCT-GLUCOSE [id number] 16:21:22 Test Item Value Reference Range Interpretation Comments POC-GLUCOSE METER 174 mg/dL 70-110 H : TESTED A T [facility] (BEAKER) ([facility] = [facility] [place] [id number] 478: Aligner Typewriter/Techni corazon ID = [id number] for Zachary Paredes POCT-GLUCOSE [id number] 11:53:05 Test Item Value Reference Range Interpretation Comments POC-GLUCOSE METER 121 mg/dL 70-110 H : TESTED A T [facility] (BEAKER) ([facility] = [facility] [place] [address] 478: Aligner Typewriter/Techni corazon ID = [id number] for Jesica Bateman BLOOD [id number] 10:00:45 Test Item Value Reference Range Interpretation Comments CULTURE (BEAKER) (test No growth in 5 days code = 1095) BLOOD [id number] 10:00:45 Test Item Value Reference Range Interpretation Comments CULTURE (BEAKER) (test No growth in 5 days code = 1095) POCT-GLUCOSE [id number] 06:30:21 Test Item Value Reference Range Interpretation Comments POC-GLUCOSE METER 119 mg/dL 70-110 H : TESTED A T [facility] (BEAKER) (test code [facility] [place] [facility] = 15[facility] [place] [id number] 478: Aligner Typewriter/Techni corazon ID = [id number] for Brow n, Becky POCT-GLUCOSE [id number] 21:23:10 Test Item Value Reference Range Interpretation Comments POC-GLUCOSE METER 121 mg/dL 70-110 H : TESTED A T [facility]17 (BEAKER) ([facility], = 1538) [place] [address] 478: Aligner Typewriter/Techni corazon ID = [id number] for Brow n, Becky POCT-GLUCOSE [id number] 17:10:37 Test Item Value Reference Range Interpretation Comments POC-GLUCOSE METER 145 mg/dL 70-110 H : TESTED A T [facility] (BEAKER) (test code [facility], [place] [address], = 1538) [place] [address] 478: Aligner Typewriter/Techni corazon ID = [id number] for Dapr emodanay, Kristin POCT-GLUCOSE [id number] 12:37:45 Test Item Value Reference Range Interpretation Comments POC-GLUCOSE METER 151 mg/dL 70-110 H : TESTED A T [facility] 1317 (ANA PAULA) (test code [address], = 1538) [facility] [place] [address] 478: Aligner Typewriter/Techni corazon ID = [id number] for Marques Vo U/S, DUPLEX, [id number] 11:09:00Reason for exam:->left groin hematoma [facility]ENTER[facility]: [facility]DEN [facility]U : 1945 Sex: MFINAL REPORT TECHNIQUE: U/S, DUPLEX, DOPPLER grayscale, color Doppler and back. Her ultrasound examination of the left groin was performed. INDICATION: left groin hematoma. COMPARISON: 11/18/2022 Doppler exams. FINDINGS:Left groin hematoma measuring 4.7 x 2.4 x 4.4 cm, heterogeneous. At its posterior superior aspect is a pseudoaneurysm with neck measuring approximately 6 mm in caliber demonstrating to and fro flow. There is some eccentric thrombus within the pseudoaneurysm. Overall pseudoaneurysm appears slightly increased in size measuring 2.0 x 1.6 cm compared to 1.6 x 1.1 cm previously.Direct comparison is difficult given differences in planes of measurement. Hematoma size difficult to measure on the prior examination but is overall similar in size. IMPRESSION: 1. Persistence of leftcommon femoral artery pseudoaneurysm. There is some eccentric likely thrombus within the pseudoaneurysm. Overall size of the pseudoaneurysm appears to have slightly increased, as described above. Overall hematoma is grossly stable in size. Signed: Michelet Marquez [facility] Verified Date/Time: 11/20/2022 11:09:24 RAD, CHEST, 1 VIEW, NON DEPT 2022-11-20 09:16:00Reason for exam:->sobShould this be performed at the bedside?->Yes[facility] : 1945 Sex: MFINAL REPORT Chest dated 11/20/2022 COMPARISON: 11/19/2022 Clinical Information: sob Comment: Heart is enlarged. Transvenous pacemaker remains in place. Pulmonary vasculature is indistinct. Interstitial disease is seen bilaterally suggestive of pulmonary edema worse as compared to the prior exa mination. There is trace bilateral pleural effusion. Impression: Interval worsening of pulmonary edema. Signed: Johann Cisneroseport Verified Date/Time: 11/20/2022 09:16:24 Reading Location: [address] Body Reading Room POCT-GLUCOSE [id number] 08:02:46 Test Item Value Reference Range Interpretation Comments POC-GLUCOSE METER 118 mg/dL 70-110 H : TESTED A T [facility] 1317 (BYOM!) (test code [address], = 1538) [facility] [place] [address] 478: Aligner Typewriter/Techni corazon ID = [id number] for Marques Vo POCT-GLUCOSE [id number] 06:46:56 Test Item Value Reference Range Interpretation Comments POC-GLUCOSE METER 127 mg/dL 70-110 H : TESTED A T [facility] [address] (BYOM!) (test code [address], = 1538) [facility] [place] [address] 478: Aligner Typewriter/Techni corazon ID = [id number] for Brittney Alvarez [id number] 01:14:24 Test Item Value Reference Range Interpretation Comments MAGNESIUM (BEAKER) (test code = 2.5 mg/dL 1.5-3.0 627) Aligner Typewriter ID - LEVIOTAOperator ID - LEVIOTAOperator ID - LEVIOTAOperator ID - [id number] 01:12:17 Test Item Value Reference Range Interpretation Comments PHOSPHORUS (BEAKER) (test code = 3.6 mg/dL 2.5-4.5 604) Aligner Typewriter ID - [id number] 00:47:10 Test Item Value Reference Range Interpretation Comments PROCALCITONIN (BEAKER) (test code 0.15 ng/mL <0.05 H = 3036) SEPSIS RISK (ng/mL)Low: 0.05-0.50Intermediate: 0.51-2.00High: >=2.01C- REACTIVE [id number] 00:40:43 Test Item Value Reference Range Interpretation Comments C-REACTIVE PROTEIN (BEAKER) (test 10.39 mg/dL 0.00-0.50 H code = 676) Aligner Typewriter ID - LEVIOTABASIC METABOLIC [id number] 00:40:31 Test Item Value Reference Range Interpretation Comments SODIUM (BEAKER) 141 meq/L 135-148 (test code = 381) POTASSIUM 4.2 meq/L 3.6-5.5 (BEAKER) (test code = 379) CHLORIDE (BEAKER) 110 meq/L 98-106 H (test code = 382) CO2 (BEAKER) 21 meq/L 20-29 (test code = 355) BLOOD UREA 28 mg/dL 10-26 H NITROGEN (BEAKER) (test code = 354) CREATININE 1.44 mg/dL 0.50-1.20 H (BEAKER) (test code = 358) GLUCOSE RANDOM 124 mg/dL 70-110 H (BEAKER) (test code = 652) CALCIUM (BEAKER) 7.9 mg/dL 8.5-10.5 L (test code = 697) EGFR (BEAKER) 50 Interpretatio n of eGFR (test code = mL/min/1.73 values Stage De scription 1092) sq m Result G1 Vashti l or high >=90 G2 Mildly decreased 60-89 G3a Mildl y to moderately 45-5 9 G3b Moderately to s everely 30-44 G4 Severl y decreased 15-29 G5 Kidney failure <15Reported eGF R is based on the CKD-EPI 2021 equation that d oes not use a race coefficientEsti mated GFR is not as accur ate as Creatinine Henny je in predicting glom erular filtration rate . Estimated GFR is not appl icable for dialysis patien ts Aligner Typewriter ID - LEVIOTAOperator ID - LEVIOTAOperator ID - LEVIOTAOperator ID - LEVIOTAOperator ID - LEVIOTAOperator ID - LEVIOTAOperator ID - LEVIOTAOperator ID - LEVIOTAOperator ID - LEVIOTAOperator ID - LEVIOTAOperator ID - LEVIOTAOperator ID - LEVIOTAOperator ID - LEVIOTACBC W/PLT COUNT & AUTO [id number] 00:15:30 Test Item Value Reference Range Interpretation Comments WHITE BLOOD CELL COUNT (BEAKER) 10.0 K/ L 4.0-10.0 (test code = 775) RED BLOOD CELL COUNT (BEAKER) 2.73 M/ L 4.20-5.80 L (test code = 761) HEMOGLOBIN (BEAKER) (test code = 7.8 GM/DL 13.0-16.8 L 410) HEMATOCRIT (BEAKER) (test code = 24.8 % 36.0-50.0 L 411) MEAN CORPUSCULAR VOLUME (BEAKER) 91 fL 82-99 (test code = 753) MEAN CORPUSCULAR HEMOGLOBIN 28.6 pg 27.0-33.0 (BEAKER) (test code = 751) MEAN CORPUSCULAR HEMOGLOBIN CONC 31.5 GM/DL 32.0-36.0 L (BEAKER) (test code = 752) RED CELL DISTRIBUTION WIDTH 18.3 % 12.0-15.0 H (BEAKER) (test code = 412) PLATELET COUNT (BEAKER) (test 136 K/CU MM 150-430 L code = 756) MEAN PLATELET VOLUME (BEAKER) 10.7 fL 6.0-11.5 (test code = 754) NUCLEATED RED BLOOD CELLS 0 /100 WBC 0-0 (BEAKER) (test code = 413) NEUTROPHILS RELATIVE PERCENT 84 % (BEAKER) (test code = 429) LYMPHOCYTES RELATIVE PERCENT 7 % (BEAKER) (test code = 430) MONOCYTES RELATIVE PERCENT 7 % (BEAKER) (test code = 431) EOSINOPHILS RELATIVE PERCENT 1 % (BEAKER) (test code = 432) BASOPHILS RELATIVE PERCENT 1 % (BEAKER) (test code = 437) NEUTROPHILS ABSOLUTE COUNT 8.33 K/ L 1.80-8.00 H (BEAKER) (test code = 670) LYMPHOCYTES ABSOLUTE COUNT 0.70 K/ L 1.48-4.50 L (BEAKER) (test code = 414) MONOCYTES ABSOLUTE COUNT (BEAKER) 0.71 K/ L 0.00-1.30 (test code = 415) EOSINOPHILS ABSOLUTE COUNT 0.11 K/ L 0.00-0.50 (BEAKER) (test code = 416) BASOPHILS ABSOLUTE COUNT (BEAKER) 0.05 K/ L 0.00-0.20 (test code = 417) IMMATURE GRANULOCYTES-RELATIVE 0.70 % 0.00-0.00 H PERCENT (BEAKER) (test code = 2801) CALCIUM, [id number] 00:12:09 Test Item Value Reference Range Interpretation Comments CALCIUM IONIZED (BEAKER) (test 1.12 mmol/L 1.12-1.27 code = 698) PH, BLOOD (BEAKER) (test code = 7.37 1810) POCT-GLUCOSE [id number] 20:21:15 Test Item Value Reference Range Interpretation Comments POC-GLUCOSE METER 137 mg/dL 70-110 H : TESTED A T [facility] (BEAKER) (test code [address], = 1538) [place] [id number]: Aligner Typewriter/Techni corazon ID = [id number] for Deonte Alvarezn POCT-GLUCOSE [id number] 17:29:57 Test Item Value Reference Range Interpretation Comments POC-GLUCOSE METER 120 mg/dL 70-110 H : TESTED A T [facility] [address]17 (BEAKER) (test code [address], = 1538) [place] [address] 478: Aligner Typewriter/Techni corazon ID = [id number] for Luis Armando Hernandez HEMOGLOBIN AND [id number] 15:34:51 Test Item Value Reference Range Interpretation Comments HEMOGLOBIN (BEAKER) (test code = 7.9 GM/DL 13.0-16.8 L 410) HEMATOCRIT (BEAKER) (test code = 25.4 % 36.0-50.0 L 411) U/S, TESTICULAR (SCROTUM)2022-11-19 14:29:00Reason for exam:->edema, hematomaShould this be performed at the bedside?->Yes [facility] 1945 Sex: MFINAL REPORT U/S, TESTICULAR (SCROTUM), U/S, DUPLEX, DOPPLER CLINICAL HISTORY: edema, hematoma COMPARISON: None. TECHNIQUE: Real time grayscale ultrasound, color, and spectral Doppler imagingwas performed. FINDINGS: Right testis:Size = 3.4 x 2.5 x 2.5 cmAppearance: Normal with no focal massDoppler flow: Normal Right epididymis: Epididymal head cyst measuring 5 mm, otherwise normal Left testis:Size = 3.1 x 2.2 x 2.2 cmAppearance: Normal with no focal massDoppler flow: Normal Left epididymis: Normal Varicocele: None Hydrocele: Moderate bilateral hydrocelesOther: There is marked thickening and edema of the scrotal wall. IMPRESSION:1. No testicular torsion.2. Marked thickening and edema of the scrotal wall.3. Moderate bilateral hydroceles. Signed: Irvin Seoeport Verified Date/Time: 11/19/2022 14:29:27 Reading Location: [facility] Radiology Reading Room U/S, DUPLEX, [id number] 14:29:00 [facility] 1945 Sex: MFINAL REPORT U/S, TESTICULAR (SCROTUM), U/S, DUPLEX, DOPPLER CLINICAL HISTORY: edema, hematoma COMPARISON: None. TECHNIQUE: Real time grayscale ultrasound, color, and spectral Doppler imagingwas performed. FINDINGS: Right testis:Size = 3.4 x 2.5 x 2.5 cmAppearance: Normal with no focal massDoppler flow: Normal Right epididymis: Epididymal head cyst measuring 5 mm, otherwise normal Left testis:Size = 3.1 x 2.2 x 2.2 cmAppearance: Normal with no focal massDoppler flow: Normal Left epididymis: Normal Varicocele: None Hydrocele: Moderate bilateral hydrocelesOther: There is marked thickening and edema of the scrotal wall. IMPRESSION:1. No testicular torsion.2. Marked thickening and edema of the scrotal wall.3. Moderate bilateral hydroceles. Signed: Irvin Seo MDReport Verified Date/Time: 11/19/2022 14:29:27 Reading Location: [facility] Radiology Reading Room RAD, CHEST, 1 VIEW, NON [id number] 11:49:00Reason for exam:->SOBShould this be performed at the bedside?->Yes [facility] CENTERName: AYDEN VU : 1945 Sex: MFINAL REPORT RAD, CHEST, 1 VIEW, NON DEPT TECHNIQUE: Frontal view(s) of the chest. INDICATION: SOB COMPARISON: Chest radiograph one day prior FINDINGS/IMPRESSION: Lines/Tubes: None Lungs/pleura: Airspace opacity in the right lung, suggesting atelectasis or airspace disease. No pleural effusion. No pneumothorax. Heart and Mediastinum: Cardiomegaly. Soft Tissues and Bones: Unchanged. Signed: Irvin Seo MDReport Verified Date/Time: 11/19/2022 11:49:10 Reading Location: [facility] Radiology Reading Room POCT-GLUCOSE [id number] 11:25:17 Test Item Value Reference Range Interpretation Comments POC-GLUCOSE METER 121 mg/dL 70-110 H : TESTED A [employer] [facility] 1317 (BYOM!) (test code [facility] [place] [address], = 1538) [facility] [place] 77 478: Aligner Typewriter/Techni corazon ID = [id number] for Aldo Hernandezeanycholga VANCOMYCIN LEVEL, [id number] 10:16:02 Test Item Value Reference Range Interpretation Comments VANCOMYCIN TROUGH ([facility]) (test 18.4 ug/mL 10.0-20.0 code = 522) Aligner Typewriter ID - [id number] 09:28:40 Test Item Value Reference Range Interpretation Comments POC-GLUCOSE METER 107 mg/dL 70-110 : [facility] ([facility]ER[facility] (test code [address], = 1538) [facility] [place] [address] 478: Aligner Typewriter/Techni corazon ID = [id number] for Luis Armando Hernandez [id number] 06:45:13 Test Item Value Reference Range Interpretation Comments MAGNESIUM (BEAKER) (test code = 2.2 mg/dL 1.5-3.0 627) Aligner Typewriter ID - [id number] ID - [id number] ID - [id number] ID - [id number] [id number] 06:42:53 Test Item Value Reference Range Interpretation Comments PHOSPHORUS (BEAKER) (test code = 3.7 mg/dL 2.5-4.5 604) Aligner Typewriter ID - [id number] 06:41:52 Test Item Value Reference Range Interpretation Comments PROTIME (BEAKER) (test 13.8 seconds 9.3-12.0 H Final Information code = 759) (Auto Output) INR (BEAKER) (test 1.28 <=5.90 Final Inf ormation code = 370) (Auto Output) PARTIAL THROMBOPLASTIN 29.4 seconds 23.0-35.0 Final Information TIME (BEAKER) (test (Auto Ou tput) code = 760) RECOMMENDED COUMADIN/WARFARIN INR THERAPY RANGESSTANDARD DOSE: 2.0 - 3.0 Includes: PROPHYLAXIS for venous thrombosis, systemic embolization; TREATMENT for venous thrombosis and/or pulmonary embolus.HIGH RISK: Target INR is 2.5-3.5 for patients with mechanical heart valves.HEMOGLOBIN AND [id number] 06:31:31 Test Item Value Reference Range Interpretation Comments HEMOGLOBIN (BEAKER) (test code = 7.0 GM/DL 13.0-16.8 L 410) HEMATOCRIT (BEAKER) (test code = 22.1 % 36.0-50.0 L 411) [id number] 00:50:05 Test Item Value Reference Range Interpretation Comments MAGNESIUM (BEAKER) (test code = 2.2 mg/dL 1.5-3.0 627) Aligner Typewriter ID - [id number] ID - [id number] ID - [id number] ID - [id number] BASIC METABOLIC [id number] 00:48:43 Test Item Value Reference Range Interpretation Comments SODIUM (BEAKER) 141 meq/L 135-148 (test code = 381) POTASSIUM 4.4 meq/L 3.6-5.5 (BEAKER) (test code = 379) CHLORIDE (BEAKER) 111 meq/L 98-106 H (test code = 382) CO2 (BEAKER) 20 meq/L 20-29 (test code = 355) BLOOD UREA 26 mg/dL 10-26 NITROGEN (BEAKER) (test code = 354) CREATININE 1.32 mg/dL 0.50-1.20 H (BEAKER) (test code = 358) GLUCOSE RANDOM 112 mg/dL 70-110 H (BEAKER) (test code = 652) CALCIUM (BEAKER) 8.0 mg/dL 8.5-10.5 L (test code = 697) EGFR (BEAKER) 56 Interpretatio n of eGFR (test code = mL/min/1.73 values Stage De scription 1092) sq m Result G1 Vashti l or high >=90 G2 Mildly decreased 60-89 G3a Mildl y to moderately 45-5 9 G3b Moderately to s everely 30-44 G4 Severl y decreased 15-29 G5 Kidney failure <15Reported eGF R is based on the CKD-EPI 2020 equation that d oes not use a race coefficientEsti mated GFR is not as accur ate as Creatinine Henny wooten in predicting glom erular filtration rate . Estimated GFR is not appl icable for dialysis patien ts Aligner Typewriter ID - [id number] ID - [id number] ID - [id number] ID - [id number] ID - PBLT73Kndviomm ID - LLHY13Kqseufna ID - LAOQ26Hnaxbhyh ID - GLYK08Fygowjao ID - [id number] 00:47:25 Test Item Value Reference Range Interpretation Comments PHOSPHORUS (BEAKER) (test code = 3.6 mg/dL 2.5-4.5 604) Aligner Typewriter ID - [id number] W/PLT COUNT & AUTO [id number] 00:45:15 Test Item Value Reference Range Interpretation Comments WHITE BLOOD CELL COUNT (BEAKER) 9.1 K/ L 4.0-10.0 (test code = 775) RED BLOOD CELL COUNT (BEAKER) 2.49 M/ L 4.20-5.80 L (test code = 761) HEMOGLOBIN (BEAKER) (test code = 7.1 GM/DL 13.0-16.8 L 410) HEMATOCRIT (BEAKER) (test code = 22.8 % 36.0-50.0 L 411) MEAN CORPUSCULAR VOLUME (BEAKER) 92 fL 82-99 (test code = 753) MEAN CORPUSCULAR HEMOGLOBIN 28.5 pg 27.0-33.0 (BEAKER) (test code = 751) MEAN CORPUSCULAR HEMOGLOBIN CONC 31.1 GM/DL 32.0-36.0 L (BEAKER) (test code = 752) RED CELL DISTRIBUTION WIDTH 18.2 % 12.0-15.0 H (BEAKER) (test code = 412) PLATELET COUNT (BEAKER) (test 141 K/CU MM 150-430 L code = 756) MEAN PLATELET VOLUME (BEAKER) 10.7 fL 6.0-11.5 (test code = 754) NUCLEATED RED BLOOD CELLS 0 /100 WBC 0-0 (BEAKER) (test code = 413) NEUTROPHILS RELATIVE PERCENT 88 % (BEAKER) (test code = 429) LYMPHOCYTES RELATIVE PERCENT 4 % (BEAKER) (test code = 430) MONOCYTES RELATIVE PERCENT 6 % (BEAKER) (test code = 431) EOSINOPHILS RELATIVE PERCENT 1 % (BEAKER) (test code = 432) BASOPHILS RELATIVE PERCENT 0 % (BEAKER) (test code = 437) NEUTROPHILS ABSOLUTE COUNT 8.02 K/ L 1.80-8.00 H (BEAKER) (test code = 670) LYMPHOCYTES ABSOLUTE COUNT 0.38 K/ L 1.48-4.50 L (BEAKER) (test code = 414) MONOCYTES ABSOLUTE COUNT (BEAKER) 0.54 K/ L 0.00-1.30 (test code = 415) EOSINOPHILS ABSOLUTE COUNT 0.08 K/ L 0.00-0.50 (BEAKER) (test code = 416) BASOPHILS ABSOLUTE COUNT (BEAKER) 0.04 K/ L 0.00-0.20 (test code = 417) IMMATURE GRANULOCYTES-RELATIVE 0.40 % 0.00-0.00 H PERCENT (BEAKER) (test code = 2801) POCT-GLUCOSE [id number] 23:22:06 Test Item Value Reference Range Interpretation Comments POC-GLUCOSE METER 88 mg/dL 70-110 : TESTED A T [facility] (BEAKER) (test code = [address], 1538) [place] [address]: Aligner Typewriter/Techni corazon ID = [id number] for McGi ll, Brittney POCT-GLUCOSE [id number] 20:59:56 Test Item Value Reference Range Interpretation Comments POC-GLUCOSE METER 79 mg/dL 70-110 : TESTED A T [facility] (BEAKER) (test code = [address], 1538) [place] [address]: Aligner Typewriter/Techni corazon ID = [id number] for McGi ll, Brittney HEMOGLOBIN AND [id number] 17:01:22 Test Item Value Reference Range Interpretation Comments HEMOGLOBIN (BEAKER) (test code = 7.9 GM/DL 13.0-16.8 L 410) HEMATOCRIT (BEAKER) (test code = 26.1 % 36.0-50.0 L 411) POCT-GLUCOSE [id number] 16:49:52 Test Item Value Reference Range Interpretation Comments POC-GLUCOSE METER 78 mg/dL 70-110 : TESTED A T [facility] [address] (BEAKER) (test code = [address], 1538) [place] [id number]: Aligner Typewriter/Techni corazon ID = [id number] for Chuckie Santiago U/S, DUPLEX, [id number] 16:27:00 [facility] 1945 Sex: MFINAL REPORT U/S, DUPLEX, DOPPLER CLINICAL HISTORY: left groin hematoma with pseudoaneurysm originating from ARBORICULTURIST COMPARISON: Duplex Doppler 8:[address] of the abdomen and pelvis 11:00 AM TECHNIQUE: Real time grayscale and color Doppler images of the left groin were obtained. FINDINGS/IMPRESSION: Limited sonographic evaluation of the left groin was performed. There is a small pseudoaneurysm arising from the left common femoral artery. The neck of the pseudoaneurysm measures approximately0.8 cm. There appears to be flow from the pseudoaneurysm into the hematoma anteriorly. The hematoma cannot be adequately measured on this study, please see recent CT of the abdomen and pelvis from earlier today. Signed: Irvin Seo MDReport Verified Date/Time: 11/18/2022 16:27:42 Reading Location: [facility] Radiology Reading Room HEMOGLOBIN AND HEMATOCRIT 2022-11-18 12:30:38 Test Item Value Reference Range Interpretation Comments HEMOGLOBIN (BEAKER) (test code = 7.8 GM/DL 13.0-16.8 L 410) HEMATOCRIT (BEAKER) (test code = 24.5 % 36.0-50.0 L 411) CT, CTA AAA, W/ KERVIN.EXT.[id number] 11:58:00 [facility] 1945 Sex: MFINAL REPORT EXAM: Abdominal and pelvic CTA with lower extremity runoff CLINICAL HISTORY: Claudication COMPARISON: Left groin Doppler, November 18, 2022 TECHNIQUE: Helical images of the abdomen and pelvis were obtained before and after IV contrast administration along with bilateral lower extremity runoff during the arterial phase. MIPS and 3-D reformation also obtained. FINDINGS: Bilateral large pleural effusions are noted, right greater than left. The cardiac size is mildly prominent. The liver, spleen, pancreas, adrenal glands, and kidneys are unremarkable. Gallbladder is mildly distended. The small and large bowels are normal in caliber without evidence of obstruction. Moderate retainedfeces are noted in the colon. The bladder is contracted with a Otto catheter within the lumen. The prostate seminal vesicles are unremarkable. Multilobulated hyperdense fluid collection is seen in theleft inguinal region measuring 12.6 x 4.1 cm in the AP and transverse diameters most compatible witha hematoma. A 2 cm enhancing structure is also seen anterior to the left common femoral artery consistent with a pseudoaneurysm. Diffuse atherosclerotic calcification is noted in the abdominal aorta without evidence of flow-limiting stenosis. It is within normal limits in caliber. There is no evidenceof aneurysm. Dense calcified plaque is noted at the origin of the SMA without evidence of flow-limiting stenosis. The ELENO is visualized and patent. Atherosclerotic disease is also noted throughout the bilateral iliac arteries without flow-limiting stenosis. There is at least 50% narrowing of the luminal diameter of the right common femoral artery. Diffuse atherosclerotic calcification is noted throughout the right lower extremity vasculature. Moderate focal stenosis is seen in the distal popliteal artery. At the level of trifurcation, there is two-vessel runoff. The anterior tibial artery is occluded proximally. The peroneal artery reach the ankle and the posterior tibial artery is the main runoffartery to the foot. Diffuse atherosclerotic calcifications noted throughout the left lower extremitywith again pseudoaneurysm originating from the left common femoral artery. High-grade stenosis versus occlusion noted in the proximal profunda femoris. There is moderate focal stenosis of the superficial femoral artery at the mid thigh. Moderate to high-grade stenosis of the popliteal artery is seen above the knee joint. At the level of trifurcation, there is two-vessel runoff. The anterior tibial artery is occluded. The posterior tibial and peroneal arteries appear somewhat diminutive but patent wit h the posterior tibial arteries as the main runoff artery to the foot. IMPRESSION: 1. Large left groin hematoma with a 2 cm pseudoaneurysm originating from the common femoral artery. 2. Multifocal stenosis involving bilateral lower extremity vasculatures as described. 3. Bilateral anterior tibial artery occlusion. 4. Bilateral large pleural effusions. 5. Mildly distended gallbladder. Signed: Ford Sierra MDReport Verified Date/Time: 11/18/2022 11:58:02 -GLUCOSE [id number] 11:37:52 Test Item Value Reference Range Interpretation Comments POC-GLUCOSE METER 79 mg/dL 70-110 : TESTED A T [facility] [address] ([address]) (test code = [address], [address]38) [facility] 77 478: Aligner Typewriter/Techni corazon ID = [id number] for Etnaresh gandhi LenaChuckie U/S, DUPLEX, [id number] 07:33:00Reason for exam:->left groin post surgery site hematoma r/o pseudoaneurysmShould this be performed at the bedside?->Yes[facility] : 1945 Sex: MFINAL REPORT EXAM: Left groin Doppler CLINICAL HISTORY: Hematoma FINDINGS: Sonographic andDoppler evaluation of the left groin revealed a 15.1 x 5.2 x 4.2 cm heterogeneously appearing hypoechoic structure without evidence of flow on color Doppler. This is most compatible with a hematoma. The left common femoral artery appears patent but demonstrates turbulent flow. If there is clinical concern, left lower extremity arterial Doppler with CTA can be performed for further assessment. IMPRESSION: 1. Left groin hematoma without evidence of pseudoaneurysm. Signed: Ford Sierra MDReport Verified Date/Time: 11/18/2022 07:33:05 POCT-GLUCOSE [id number] 07:20:04 Test Item Value Reference Range Interpretation Comments POC-GLUCOSE METER 99 mg/dL 70-110 : TESTED A T SLSL 1317 (BEAKER) (test code = [address], 1538) [facility] [address] 478: Aligner Typewriter/Techni corazon ID = [id number] for Joana Austin POCT-GLUCOSE [id number] 06:35:53 Test Item Value Reference Range Interpretation Comments POC-GLUCOSE METER 68 mg/dL 70-110 L : TESTED A T [facility] [address]17 (BEAKER) (test code = [address], 1538) [facility] 77 478: Aligner Typewriter/Techni corazon ID = [id number] for Joana Austin CBC W/PLT COUNT & AUTO [id number] 06:31:37 Test Item Value Reference Range Interpretation Comments WHITE BLOOD CELL COUNT (BEAKER) 8.8 K/ L 4.0-10.0 (test code = 775) RED BLOOD CELL COUNT (BEAKER) 3.00 M/ L 4.20-5.80 L (test code = 761) HEMOGLOBIN (BEAKER) (test code = 8.6 GM/DL 13.0-16.8 L 410) HEMATOCRIT (BEAKER) (test code = 28.3 % 36.0-50.0 L 411) MEAN CORPUSCULAR VOLUME (BEAKER) 94 fL 82-99 (test code = 753) MEAN CORPUSCULAR HEMOGLOBIN 28.7 pg 27.0-33.0 (BEAKER) (test code = 751) MEAN CORPUSCULAR HEMOGLOBIN CONC 30.4 GM/DL 32.0-36.0 L (BEAKER) (test code = 752) RED CELL DISTRIBUTION WIDTH 18.3 % 12.0-15.0 H (BEAKER) (test code = 412) PLATELET COUNT (BEAKER) (test 158 K/CU MM 150-430 code = 756) MEAN PLATELET VOLUME (BEAKER) 11.3 fL 6.0-11.5 (test code = 754) NUCLEATED RED BLOOD CELLS 0 /100 WBC 0-0 (BEAKER) (test code = 413) NEUTROPHILS RELATIVE PERCENT 84 % (BEAKER) (test code = 429) LYMPHOCYTES RELATIVE PERCENT 6 % (BEAKER) (test code = 430) MONOCYTES RELATIVE PERCENT 8 % (BEAKER) (test code = 431) EOSINOPHILS RELATIVE PERCENT 1 % (BEAKER) (test code = 432) BASOPHILS RELATIVE PERCENT 1 % (BEAKER) (test code = 437) NEUTROPHILS ABSOLUTE COUNT 7.39 K/ L 1.80-8.00 (BEAKER) (test code = 670) LYMPHOCYTES ABSOLUTE COUNT 0.48 K/ L 1.48-4.50 L (BEAKER) (test code = 414) MONOCYTES ABSOLUTE COUNT (BEAKER) 0.73 K/ L 0.00-1.30 (test code = 415) EOSINOPHILS ABSOLUTE COUNT 0.09 K/ L 0.00-0.50 (BEAKER) (test code = 416) BASOPHILS ABSOLUTE COUNT (BEAKER) 0.06 K/ L 0.00-0.20 (test code = 417) IMMATURE GRANULOCYTES-RELATIVE 0.20 % 0.00-0.00 H PERCENT (BEAKER) (test code = 2801) BASIC METABOLIC [id number] 04:13:24 Test Item Value Reference Range Interpretation Comments SODIUM (BEAKER) 142 meq/L 135-148 (test code = 381) POTASSIUM 3.5 meq/L 3.6-5.5 L (BEAKER) (test code = 379) CHLORIDE (BEAKER) 112 meq/L 98-106 H (test code = 382) CO2 (BEAKER) 21 meq/L 20-29 (test code = 355) BLOOD UREA 29 mg/dL 10-26 H NITROGEN (BEAKER) (test code = 354) CREATININE 1.15 mg/dL 0.50-1.20 (BEAKER) (test code = 358) GLUCOSE RANDOM 75 mg/dL 70-110 (BEAKER) (test code = 652) CALCIUM (BEAKER) 7.8 mg/dL 8.5-10.5 L (test code = 697) EGFR (BEAKER) 66 Interpretatio n of eGFR (test code = mL/min/1.73 values Stage De scription 1092) sq m Result G1 Vashti l or high >=90 G2 Mildly decreased 60-89 G3a Mildl y to moderately 45-5 9 G3b Moderately to s everely 30-44 G4 Severl y decreased 15-29 G5 Kidney failure <15Reported eGF R is based on the CKD-EPI 2021 equation that d oes not use a race coefficientEsti mated GFR is not as accur ate as Creatinine Henny je in predicting glom erular filtration rate . Estimated GFR is not appl icable for dialysis patien ts Aligner Typewriter ID - LITOOperator ID - LITOOperator ID - LITOOperator ID - LITOOperator ID - LITOOperator ID - LITOOperator ID - LITOOperator ID - LITOOperator ID - LITOOperator ID - [id number] 04:11:34 Test Item Value Reference Range Interpretation Comments MAGNESIUM (BEAKER) (test code = 2.0 mg/dL 1.5-3.0 627) Aligner Typewriter ID - LITOOperator ID - LITOOperator ID - LITOOperator ID - CLARISSA [id number] 04:08:51 Test Item Value Reference Range Interpretation Comments PHOSPHORUS (BEAKER) (test code = 3.4 mg/dL 2.5-4.5 604) Aligner Typewriter ID - LITOCBC W/PLT COUNT & AUTO [id number] 00:32:13 Test Item Value Reference Range Interpretation Comments WHITE BLOOD CELL COUNT (BEAKER) 8.7 K/ L 4.0-10.0 (test code = 775) RED BLOOD CELL COUNT (BEAKER) 3.44 M/ L 4.20-5.80 L (test code = 761) HEMOGLOBIN (BEAKER) (test code = 10.0 GM/DL 13.0-16.8 L 410) HEMATOCRIT (BEAKER) (test code = 32.0 % 36.0-50.0 L 411) MEAN CORPUSCULAR VOLUME (BEAKER) 93 fL 82-99 (test code = 753) MEAN CORPUSCULAR HEMOGLOBIN 29.1 pg 27.0-33.0 (BEAKER) (test code = 751) MEAN CORPUSCULAR HEMOGLOBIN CONC 31.3 GM/DL 32.0-36.0 L (BEAKER) (test code = 752) RED CELL DISTRIBUTION WIDTH 18.4 % 12.0-15.0 H (BEAKER) (test code = 412) PLATELET COUNT (BEAKER) (test 170 K/CU MM 150-430 code = 756) MEAN PLATELET VOLUME (BEAKER) 10.5 fL 6.0-11.5 (test code = 754) NUCLEATED RED BLOOD CELLS 0 /100 WBC 0-0 (BEAKER) (test code = 413) NEUTROPHILS RELATIVE PERCENT 85 % (BEAKER) (test code = 429) LYMPHOCYTES RELATIVE PERCENT 6 % (BEAKER) (test code = 430) MONOCYTES RELATIVE PERCENT 8 % (BEAKER) (test code = 431) EOSINOPHILS RELATIVE PERCENT 1 % (BEAKER) (test code = 432) BASOPHILS RELATIVE PERCENT 1 % (BEAKER) (test code = 437) NEUTROPHILS ABSOLUTE COUNT 7.36 K/ L 1.80-8.00 (BEAKER) (test code = 670) LYMPHOCYTES ABSOLUTE COUNT 0.48 K/ L 1.48-4.50 L (BEAKER) (test code = 414) MONOCYTES ABSOLUTE COUNT (BEAKER) 0.65 K/ L 0.00-1.30 (test code = 415) EOSINOPHILS ABSOLUTE COUNT 0.10 K/ L 0.00-0.50 (BEAKER) (test code = 416) BASOPHILS ABSOLUTE COUNT (BEAKER) 0.05 K/ L 0.00-0.20 (test code = 417) IMMATURE GRANULOCYTES-RELATIVE 0.60 % 0.00-0.00 H PERCENT (BEAKER) (test code = 2801) POCT-GLUCOSE [id number] 23:02:02 Test Item Value Reference Range Interpretation Comments POC-GLUCOSE METER 104 mg/dL 70-110 : TESTED A T [facility] 1317 (BEAKER) (test code [address], = 1538) [place] [id number]: Aligner Typewriter/Techni corazon ID = [id number] for Joana Austin POCT-GLUCOSE [id number] 22:27:26 Test Item Value Reference Range Interpretation Comments POC-GLUCOSE METER 62 mg/dL 70-110 L : TESTED A T [facility] [address]17 (BEAKER) (test code = [address], 1538) [place] [address] 478: Aligner Typewriter/Techni corazon ID = [id number] for Joana Austin CBC W/PLT COUNT & AUTO [id number] 20:24:12 Test Item Value Reference Range Interpretation Comments WHITE BLOOD CELL COUNT (BEAKER) 7.3 K/ L 4.0-10.0 (test code = 775) RED BLOOD CELL COUNT (BEAKER) 3.89 M/ L 4.20-5.80 L (test code = 761) HEMOGLOBIN (BEAKER) (test code = 11.1 GM/DL 13.0-16.8 L 410) HEMATOCRIT (BEAKER) (test code = 36.3 % 36.0-50.0 411) MEAN CORPUSCULAR VOLUME (BEAKER) 93 fL 82-99 (test code = 753) MEAN CORPUSCULAR HEMOGLOBIN 28.5 pg 27.0-33.0 (BEAKER) (test code = 751) MEAN CORPUSCULAR HEMOGLOBIN CONC 30.6 GM/DL 32.0-36.0 L (BEAKER) (test code = 752) RED CELL DISTRIBUTION WIDTH 18.6 % 12.0-15.0 H (BEAKER) (test code = 412) PLATELET COUNT (BEAKER) (test 187 K/CU MM 150-430 code = 756) MEAN PLATELET VOLUME (BEAKER) 10.7 fL 6.0-11.5 (test code = 754) NUCLEATED RED BLOOD CELLS 0 /100 WBC 0-0 (BEAKER) (test code = 413) NEUTROPHILS RELATIVE PERCENT 79 % (BEAKER) (test code = 429) LYMPHOCYTES RELATIVE PERCENT 8 % (BEAKER) (test code = 430) MONOCYTES RELATIVE PERCENT 9 % (BEAKER) (test code = 431) EOSINOPHILS RELATIVE PERCENT 3 % (BEAKER) (test code = 432) BASOPHILS RELATIVE PERCENT 1 % (BEAKER) (test code = 437) NEUTROPHILS ABSOLUTE COUNT 5.82 K/ L 1.80-8.00 (BEAKER) (test code = 670) LYMPHOCYTES ABSOLUTE COUNT 0.59 K/ L 1.48-4.50 L (BEAKER) (test code = 414) MONOCYTES ABSOLUTE COUNT (BEAKER) 0.65 K/ L 0.00-1.30 (test code = 415) EOSINOPHILS ABSOLUTE COUNT 0.18 K/ L 0.00-0.50 (BEAKER) (test code = 416) BASOPHILS ABSOLUTE COUNT (BEAKER) 0.06 K/ L 0.00-0.20 (test code = 417) IMMATURE GRANULOCYTES-RELATIVE 0.30 % 0.00-0.00 H PERCENT (BEAKER) (test code = 2801) POCT-GLUCOSE [id number] 17:59:49 Test Item Value Reference Range Interpretation Comments POC-GLUCOSE METER 100 mg/dL 70-110 : TESTED A T [facility] 1317 (BEAKER) (test code [address], = 1538) [place] [address] 478: Aligner Typewriter/Techni corazon ID = [id number] for Marques Vo POCT-GLUCOSE [id number] 17:07:57 Test Item Value Reference Range Interpretation Comments POC-GLUCOSE METER 134 mg/dL 70-110 H : TESTED A T [facility] 1317 (BEAKER) (test code [address], = 1538) [place] [address] 478: Aligner Typewriter/Techni corazon ID = [id number] for Brenda timmy, Siroxanna POCT-GLUCOSE [id number] 15:58:50 Test Item Value Reference Range Interpretation Comments POC-GLUCOSE METER 59 mg/dL 70-110 L : TESTED A T [facility] 1317 (BEAKER) (test code = [address], 1538) [place] [address] 478: Aligner Typewriter/Techni corazon ID = [id number] for Will iams, Maria L POCT-GLUCOSE [id number] 15:49:56 Test Item Value Reference Range Interpretation Comments POC-GLUCOSE METER 63 mg/dL 70-110 L : TESTED A T [facility] 1317 (BEAKER) (test code = [address], 1538) [place] [address] 478: Aligner Typewriter/Techni corazon ID = [id number] for Brenda stin, Siji POCT-GLUCOSE [id number] 12:37:38 Test Item Value Reference Range Interpretation Comments POC-GLUCOSE METER 85 mg/dL 70-110 : TESTED A T [facility] [address]17 (BEAKER) (test code = [address], 1538) [place] [address] 478: Aligner Typewriter/Techni corazon ID = [id number] for Will iams, Maria L POCT-GLUCOSE [id number] 12:05:52 Test Item Value Reference Range Interpretation Comments POC-GLUCOSE METER 62 mg/dL 70-110 L : TESTED A T [facility] 1317 (BEAKER) (test code = [address], 1538) [place] [address] 478: Aligner Typewriter/Techni corazon ID = [id number] for Will iams, Maria L CT, EXTREMITY, LOWER, WITH CONTRAST, [id number] 10:31:00Unlisted Reason for Exam - Click Yes and Enter Reason Below->No [facility] CENTERName: AYDEN VU : 1945 Sex: MFINAL REPORT CT right lower extremity with contrast HISTORY: Osteomyelitis of foot COMPARISON: Right foot x-rays performed on 11/16/2022 Technique: serial axial imaging was performed followingthe administration of intravenous contrast as per departmental protocol. Multiplanar images are recon structed and reviewed when indicated. This CT examination is performed using one or more of the following dose reduction techniques: Automated exposure control, adjustment of the mA and /or kV according to patient size, and/or use of iterative reconstruction technique. FINDINGS: There is moderate diffuse skin thickening and superficial soft tissue swelling throughout the right lower leg. No subcutaneous emphysema is visualized. No definite muscular or deep fascial edema is appreciated. No organized fluid collection is identified. Moderate vascular calcifications are seen throughout the examination.The right anterior tibial artery is largely occluded, with distal reconstitution just above the level of the ankle joint. The right peroneal and posterior tibial arteries appear patent. No osseous destructive changes are visualized. No acute fracture, dislocation, or subluxation is apparent. IMPRESSION:1. No definite CT findings of osteomyelitis, necrotizing fasciitis, or abscess formation. Consider further evaluation with MRI if there is persistent clinical concern.2. Diffuse superficial skin thickening and soft tissue swelling. Signed: Esteban Briceno MDReport Verified Date/Time: 11/17/2022 10:31:09 Reading Location: [facility] Reading Room RIAL DOPPLER LEGS, [id number] 08:20:00Reason for exam:->pvd [facility] CENTERName: AYDEN VU : 1945 Sex: MFINAL REPORT Bilateral lower extremity arterial Doppler HISTORY: Peripheral vascular disease COMPARISON: CT right lower extremity performed on 11/17/2022 FINDINGS: Study is obtained utilizing conventional grayscale imaging as well as color flow with spectral analysis. There are moderate diffuse atherosclerotic calcifications and intimal thickening throughout the examination. The bilateral common femoral, superficial femoral, and popliteal arteries appear patent. There is no significant stenosis appreciated on grayscale imaging. No significant focal velocity accelerations are appreciated. Correlation with CT scan of the right lower extremity performed on 11/17/2022 shows two-vessel runoff below the right knee. The right posterior tibial and peroneal arteries appear patent throughout, without blunting of systolic upstroke. The majority of the right anterior tibial artery is occluded, with d istal reconstitution just above the level of the ankle joint. Arterial Doppler shows the interrogated portions of the left anterior and posterior tibial and peroneal arteries as patent, without blunting of systolic upstroke. IMPRESSION:1. Diffuse atherosclerotic disease. No arterial occlusion or hemody namically significant stenosis within the bilateral common femoral, superficial femoral, or popliteal arteries.2. Two-vessel runoff below the right knee, with patency of the right posterior tibial and peroneal arteries. There appears to be three-vessel runoff on the left. Signed: Esteban Briceno MDReport Verified Date/Time: 11/17/2022 08:20:43 Reading Location: [facility] Reading Room Electronicallysigned by: ESTEBAN BRICENO MD on 11/17/2022 08:20 AMPOCT-GLUCOSE [id number] 07:40:05 Test Item Value Reference Range Interpretation Comments POC-GLUCOSE METER 106 mg/dL 70-110 : TESTED A T [facility] 1317 (BEAKER) (test code [address], = 1538) [facility] 77 478: Aligner Typewriter/Techni corazon ID = [id number] for Maria L Mckenna POCT-GLUCOSE [id number] 07:01:24 Test Item Value Reference Range Interpretation Comments POC-GLUCOSE METER 51 mg/dL 70-110 L : TESTED A T [address] 1317 (BEAKER) (test code = [address], 1538) [facility] [address] 478: Aligner Typewriter/Techni corazon ID = [id number] for Aidee Deshpande BASIC METABOLIC [id number] 06:15:18 Test Item Value Reference Range Interpretation Comments SODIUM (BEAKER) 144 meq/L 135-148 (test code = 381) POTASSIUM 3.3 meq/L 3.6-5.5 L (BEAKER) (test code = 379) CHLORIDE (BEAKER) 110 meq/L 98-106 H (test code = 382) CO2 (BEAKER) 24 meq/L 20-29 (test code = 355) BLOOD UREA 34 mg/dL 10-26 H NITROGEN (BEAKER) (test code = 354) CREATININE 1.33 mg/dL 0.50-1.20 H (BEAKER) (test code = 358) GLUCOSE RANDOM 54 mg/dL 70-110 L (BEAKER) (test code = 652) CALCIUM (BEAKER) 8.2 mg/dL 8.5-10.5 L (test code = 697) EGFR (BEAKER) 55 Interpretatio n of eGFR (test code = mL/min/1.73 values Stage De scription 1092) sq m Result G1 Vashti l or high >=90 G2 Mildly decreased 60-89 G3a Mildl y to moderately 45-5 9 G3b Moderately to s everely 30-44 G4 Severl y decreased 15-29 G5 Kidney failure <15Reported eGF R is based on the CKD-EPI 2020 equation that d oes not use a race coefficientEsti mated GFR is not as accur ate as Creatinine Henny wooten in predicting glom erular filtration rate . Estimated GFR is not appl icable for dialysis patien ts Aligner Typewriter ID - [id number] ID - [id number] ID - FWQB30Yjnywozu ID - BSUP40Znelowhe ID - DDWL52Zjuipwmr ID - WPPB49Ytwnhxnh ID - HKTT85Ggwmqkgv ID - QMBC97Axwqkoki ID - HABJ70Mfubcwto ID - PDPN49Plfsxbuw ID - NWAU66Vxooibfb ID - CTES17Imldcsuh ID - [id number] (HEMOGRAM ONLY)2022-11-17 06:06:06 Test Item Value Reference Range Interpretation Comments WHITE BLOOD CELL COUNT (BEAKER) 6.3 K/ L 4.0-10.0 (test code = 775) RED BLOOD CELL COUNT (BEAKER) 3.80 M/ L 4.20-5.80 L (test code = 761) HEMOGLOBIN (BEAKER) (test code = 10.9 GM/DL 13.0-16.8 L 410) HEMATOCRIT (BEAKER) (test code = 33.9 % 36.0-50.0 L 411) MEAN CORPUSCULAR VOLUME (BEAKER) 89 fL 82-99 (test code = 753) MEAN CORPUSCULAR HEMOGLOBIN 28.7 pg 27.0-33.0 (BEAKER) (test code = 751) MEAN CORPUSCULAR HEMOGLOBIN CONC 32.2 GM/DL 32.0-36.0 (BEAKER) (test code = 752) RED CELL DISTRIBUTION WIDTH 18.2 % 12.0-15.0 H (BEAKER) (test code = 412) PLATELET COUNT (BEAKER) (test 182 K/CU MM 150-430 code = 756) MEAN PLATELET VOLUME (BEAKER) 10.7 fL 6.0-11.5 (test code = 754) NUCLEATED RED BLOOD CELLS 0 /100 WBC 0-0 (BEAKER) (test code = 413) POCT-GLUCOSE [id number] 22:55:12 Test Item Value Reference Range Interpretation Comments POC-GLUCOSE METER 89 mg/dL 70-110 : TESTED A T [facility] [address]17 (BEAKER) (test code = [address], 1538) [facility] [address]: Aligner Typewriter/Techni corazon ID = [id number] for Aidee Deshpande POCT-GLUCOSE [id number] 16:44:57 Test Item Value Reference Range Interpretation Comments POC-GLUCOSE METER 92 mg/dL 70-110 : TESTED A T [address] (BEAKER) (test code = [address], 1538) [place] [address] 478: Aligner Typewriter/Techni corazon ID = [id number] for Dapr emont, Kristin POCT-GLUCOSE [id number] 11:06:39 Test Item Value Reference Range Interpretation Comments POC-GLUCOSE METER 97 mg/dL 70-110 : TESTED A T [address] (BEAKER) (test code = [address], 1538) [place] [address] 478: Aligner Typewriter/Techni corazon ID = [id number] for Dapr emont, Kristin POCT-GLUCOSE [id number] 06:51:22 Test Item Value Reference Range Interpretation Comments POC-GLUCOSE METER 152 mg/dL 70-110 H : TESTED A T [address] (BEAKER) (test code [address], = 1538) [place] [address] 478: Aligner Typewriter/Techni corazon ID = [id number] for Aidee Deshpande LIPID [id number] 06:26:24 Test Item Value Reference Range Interpretation Comments TRIGLYCERIDES (BEAKER) (test code = 63 mg/dL 540) CHOLESTEROL (BEAKER) (test code = 145 mg/dL 631) HDL CHOLESTEROL (BEAKER) (test code 39 mg/dL = 976) LDL CHOLESTEROL CALCULATED (BEAKER) 93 mg/dL (test code = 633) Triglyceride Reference Range: Low Risk <150 Borderline 150-199 High Risk 200- 499 Very High Risk >=500Cholesterol Reference Range: Low Risk <200 Borderline 200-239 High Risk >240HDL Cholesterol Reference Range: Low Risk >=60 High Risk <40LDL Cholesterol Reference Range: Optimal <100 Near Optimal 100-129 Borderline 130-159 High 160-189 Very High >=190COMPREHENSIVE METABOLIC [id number] 06:17:20 Test Item Value Reference Range Interpretation Comments TOTAL PROTEIN 6.7 gm/dL 6.0-8.5 (BEAKER) (test code = 770) ALBUMIN (BEAKER) 3.2 g/dL 3.5-5.0 L (test code = 1145) ALKALINE 92 U/L 30-115 PHOSPHATASE (BEAKER) (test code = 346) BILIRUBIN TOTAL 1.6 mg/dL 0.1-1.2 H (BEAKER) (test code = 377) SODIUM (BEAKER) 146 meq/L 135-148 (test code = 381) POTASSIUM (BEAKER) 3.2 meq/L 3.6-5.5 L (test code = 379) CHLORIDE (BEAKER) 108 meq/L 98-106 H (test code = 382) CO2 (BEAKER) (test 24 meq/L 20-29 code = 355) BLOOD UREA 34 mg/dL 10-26 H NITROGEN (BEAKER) (test code = 354) CREATININE 1.22 mg/dL 0.50-1.20 H (BEAKER) (test code = 358) GLUCOSE RANDOM 127 mg/dL 70-110 H (BEAKER) (test code = 652) CALCIUM (BEAKER) 8.5 mg/dL 8.5-10.5 (test code = 697) AST (SGOT) 24 U/L 5-40 (BEAKER) (test code = 353) ALT (SGPT) 35 U/L 5-50 (BEAKER) (test code = 347) EGFR (BEAKER) 61 Interpretatio n of eGFR (test code = 1092) mL/min/1.[address] age Description sq m Result G1 Vashti l or high >=90 G2 Mildly decreased 60-89 G3a Mildl y to moderately 45-5 9 G3b Moderately to s everely 30-44 G4 Severl y decreased 15-29 G5 Kidney failure <15Reported eGF R is based on the CKD-EPI 2021 equation that d oes not use a race coefficientEsti mated GFR is not as accur ate as Creatinine Henny wooten in predicting glom erular filtration rate . Estimated GFR is not appl icable for dialysis patien ts [id number] 06:12:49 Test Item Value Reference Range Interpretation Comments MAGNESIUM (BEAKER) (test code = 2.2 mg/dL 1.5-3.0 627) [id number] 06:09:13 Test Item Value Reference Range Interpretation Comments PHOSPHORUS (BEAKER) (test code = 2.7 mg/dL 2.5-4.5 604) PROTHROMBIN TIME/[id number] 06:06:42 Test Item Value Reference Range Interpretation Comments PROTIME (BEAKER) 12.9 seconds 9.3-12.0 H Final Infor bharti (test code = 759) (Auto Outp ut) INR (BEAKER) (test 1.19 <=5.90 Final Inf ormation code = 370) (Auto Output) RECOMMENDED COUMADIN/WARFARIN INR THERAPY RANGESSTANDARD DOSE: 2.0 - 3.0 Includes: PROPHYLAXIS for venous thrombosis, systemic embolization; TREATMENT for venous thrombosis and/or pulmonary embolus.HIGH RISK: Target INR is 2.5-3.5 for patients with mechanical heart valves.RAD, FOOT, MIN 3 VIEWS, RIGHT 2022-11-16 05:24:00Reason for exam:->infected [facility] 1945 Sex: MFINAL REPORT TECHNIQUE: Frontal and lateral views of the right foot. INDICATION: infected right toe ulcer. COMPARISON: None. IMPRESSION:There is soft tissue ulceration at the tip of the rightgreat toe. No focal osseous erosion to suggest osteomyelitis. No acute fracture or dislocation. Signed: Johann Wang Verified Date/Time: 11/16/2022 05:24:01 HEMOGLOBIN [id number] 05:11:47 Test Item Value Reference Range Interpretation Comments HEMOGLOBIN A1C (BEAKER) (test code = 5.8 % 4.3-6.1 368) Aligner Typewriter ID - [id number] W/PLT COUNT & AUTO [id number] 05:06:16 Test Item Value Reference Range Interpretation Comments WHITE BLOOD CELL COUNT (BEAKER) 6.7 K/ L 4.0-10.0 (test code = 775) RED BLOOD CELL COUNT (BEAKER) 4.04 M/ L 4.20-5.80 L (test code = 761) HEMOGLOBIN (BEAKER) (test code = 11.4 GM/DL 13.0-16.8 L 410) HEMATOCRIT (BEAKER) (test code = 37.2 % 36.0-50.0 411) MEAN CORPUSCULAR VOLUME (BEAKER) 92 fL 82-99 (test code = 753) MEAN CORPUSCULAR HEMOGLOBIN 28.2 pg 27.0-33.0 (BEAKER) (test code = 751) MEAN CORPUSCULAR HEMOGLOBIN CONC 30.6 GM/DL 32.0-36.0 L (BEAKER) (test code = 752) RED CELL DISTRIBUTION WIDTH 18.3 % 12.0-15.0 H (BEAKER) (test code = 412) PLATELET COUNT (BEAKER) (test 207 K/CU MM 150-430 code = 756) MEAN PLATELET VOLUME (BEAKER) 10.7 fL 6.0-11.5 (test code = 754) NUCLEATED RED BLOOD CELLS 0 /100 WBC 0-0 (BEAKER) (test code = 413) NEUTROPHILS RELATIVE PERCENT 85 % (BEAKER) (test code = 429) LYMPHOCYTES RELATIVE PERCENT 7 % (BEAKER) (test code = 430) MONOCYTES RELATIVE PERCENT 7 % (BEAKER) (test code = 431) EOSINOPHILS RELATIVE PERCENT 1 % (BEAKER) (test code = 432) BASOPHILS RELATIVE PERCENT 0 % (BEAKER) (test code = 437) NEUTROPHILS ABSOLUTE COUNT 5.69 K/ L 1.80-8.00 (BEAKER) (test code = 670) LYMPHOCYTES ABSOLUTE COUNT 0.44 K/ L 1.48-4.50 L (BEAKER) (test code = 414) MONOCYTES ABSOLUTE COUNT (BEAKER) 0.45 K/ L 0.00-1.30 (test code = 415) EOSINOPHILS ABSOLUTE COUNT 0.08 K/ L 0.00-0.50 (BEAKER) (test code = 416) BASOPHILS ABSOLUTE COUNT (BEAKER) 0.02 K/ L 0.00-0.20 (test code = 417) IMMATURE GRANULOCYTES-RELATIVE 0.40 % 0.00-0.00 H PERCENT (BEAKER) (test code = 2801) POC-Glucose [id number] 12:14:07 Test Item Value Reference Range Interpretation Comments POC-Glucose Meter (test 103 mg/dL 70-110 : [facility] [address] [place] [place] [address]: Aligner Typewriter/Techni corazon ID = [id number] for [employer] ry Lab Interpretation (test Normal code = 50960-2) [facility] [id number] 12:14:07 Test Item Value Reference Range Interpretation Comments POC-Glucose Meter (test 103 mg/dL 70-110 : TE STED AT [facility] code = 1538) [address] [place] [address]: Aligner Typewriter/Techni corazon ID = [id number] for [employer] ry Lab Interpretation (test Normal code = 46762-8) [facility] [id number] 12:14:07 Test Item Value Reference Range Interpretation Comments POC-Glucose Meter (test 103 mg/dL 70-110 : TE STED AT [facility] code = 1538) [facility] [place] [address]: Aligner Typewriter/Techni corazon ID = [id number] for [employer] ry Lab Interpretation (test Normal code = 94575-1) [facility] [id number] 12:14:07 Test Item Value Reference Range Interpretation Comments POC-GLUCOSE METER 103 mg/dL 70-110 : TESTED A T [facility] [address] (BEAKER) (test code [facility], = 1538) [place] [address]: Aligner Typewriter/Techni corazon ID = [id number] for Sowmya Mcdonald C-REACTIVE [id number] 09:22:35 Test Item Value Reference Range Interpretation Comments C-REACTIVE PROTEIN (AKER) (test 2.77 mg/dL 0.00-0.50 H code = 676) Aligner Typewriter ID - [id number] 06:21:42 Test Item Value Reference Range Interpretation Comments MAGNESIUM (BEAKER) (test code = 2.3 mg/dL 1.5-3.0 627) Aligner Typewriter ID - [id number] ID - [id number] ID - [id number] ID - [id number] BASIC METABOLIC [id number] 06:20:35 Test Item Value Reference Range Interpretation [...] 697) EGFR (BEAKER) (test 40 mL/min/1.73 ESTIMA GEO GFR IS code = 1092) sq m NOT ACCURATE CREATININE CLEARANCE IN PREDICTING GLOMERULAR FILTRATION RATE . ESTIMATED GFR I S NOT APPLICABLE FOR DIALYSIS PATIEN TS. Aligner Typewriter ID - [id number] ID - [id number] ID - [id number] ID - [id number] ID - [id number] ID - [id number] ID - [id number] ID - [id number] ID - [id number] ID - [id number] 06:19:01 Test Item Value Reference Range Interpretation Comments PHOSPHORUS (BEAKER) (test code = 3.1 mg/dL 2.5-4.5 604) Aligner Typewriter ID - [id number] W/PLT COUNT & AUTO [id number] 06:02:42 Test Item Value Reference Range Interpretation [...] PERCENT (BEAKER) (test code = 2801) POCT-GLUCOSE [id number] 05:05:34 Test Item Value Reference Range Interpretation Comments POC-GLUCOSE METER 109 mg/dL 70-110 : TESTED A T [facility] [address] (ANA PAULA) (test code [facility] [place], = 1538) [facility] [place] [address]: Aligner Typewriter/Techni corazon ID = [id number] for Matt Lizarraga RAD, CHEST, 1 VIEW, NON [id number] 02:03:00Reason for exam:- >pneumothoraxShould this be performed at the bedside?->Yes [facility]DEN [facility]U : 1945 Sex: MFINAL [...] or evidence of overt pulmonary edema. Signed: Tony Avilaeport Verified Date/Time: 01/30/2022 02:03:46 TSH/FREE T4 IF [id number] 21:55:46 Test Item Value Reference Range Interpretation Comments THYROID STIMULATING HORMONE 0.630 uIU/mL 0.350-5.500 (ANA PAULA) (test code = 772) Aligner Typewriter ID - [id number]-RBTLOIF [id number] 17:58:15 Test Item Value Reference Range Interpretation Comments POC-GLUCOSE METER 166 mg/dL 70-110 H : Notified RN/MD: TESTED (ANA PAULA) (test code AT [facility] [address] = [address], [place] [address]: Aligner Typewriter/Techni corazon ID = [id number] for David h, Lorita POCT-GLUCOSE [id number] 12:17:27 Test Item Value Reference Range Interpretation Comments POC-GLUCOSE METER 114 mg/dL 70-110 H : Notified RN/MD: TESTED (BEAKER) (test code AT [facility] [address] [facility] = 1538) [facility] [address]: Aligner Typewriter/Techni corazon ID = [id number] for David h, Lorita 2D Echo W/Doppler(CW/PW/Color)2022-01-29 11:02:31Ejection [facility]LEH [facility] W/Doppler(CW/PW/Color)2022-01-29 11:02:31Ejection FractionSLEH [facility] W/Doppler(CW/PW/Color) 2022-01-29 11:02:31Ejection [facility]LE [facility] 07:58:25 Test Item Value Reference Range Interpretation Comments MAGNESIUM (BEAKER) 2.2 mg/dL 1.5-3.0 Specimen slightly (test code = 627) hemolyzed Aligner Typewriter ID - LITOOperator ID - LITOOperator ID - LITOOperator ID - CLARISSA [id number] 07:55:45 Test Item Value Reference Range Interpretation Comments PHOSPHORUS (BEAKER) 3.5 mg/dL 2.5-4.5 Specimen slightly (test code = 604) hemolyzed Aligner Typewriter ID - LITORAD, CHEST, 1 VIEW, NON [id number] 06:12:00Reason for exam:->s/p temporary pacemakerShould this be performed at the bedside?->[facility] 1945 Sex: MFINAL REPORT EXAM/TECHNIQUE: Single view frontal radiograph of the chest. INDICATION: Pacemaker. COMPARISON: 01/28/2022 FINDINGS: Devices/Objects: IVC approach transvenous pacer terminates in the expected location of the right ventricle. Lungs: No focal consolidation. No pleural effusion. No pneumothorax. Heart/Mediastinum: Similar cardiomegaly. Osseous: No acute osseous process. No suspicious osseous lesion. Upper abdomen: Unremarkable. Impression: IVC approach transvenous pacer terminatesin the expected location of the right ventricle. Signed: Adriel Lima MDReport Verified Date/Time: 01/29/2022 06:12:36 BASIC METABOLIC [id number] 05:23:24 Test Item Value Reference Range Interpretation [...] 697) EGFR (BEAKER) (test 36 mL/min/1.73 ESTIMA GEO GFR IS code = 1092) sq m NOT ACCURATE CREATININE CLEARANCE IN PREDICTING GLOMERULAR FILTRATION RATE . ESTIMATED GFR I S NOT APPLICABLE FOR DIALYSIS PATIEN TS. Aligner Typewriter ID - LITOOperator ID - LITOOperator ID - LITOOperator ID - LITOOperator ID - LITOOperator ID - LITOOperator ID - LITOOperator ID - LITOOperator ID - LITOOperator ID - LITOOperator ID - LITOOperator ID - LITOCBC W/PLT COUNT & AUTO [id number] 05:02:15 Test Item Value Reference Range Interpretation [...] PERCENT (BEAKER) (test code = 2801) POCT-GLUCOSE [id number] 04:44:45 Test Item Value Reference Range Interpretation Comments POC-GLUCOSE METER 117 mg/dL 70-110 H : TESTED A T [facility] (BEAKER) (test code [facility] [address], = 1538) [facility] [place] [address]: Aligner Typewriter/Techni corazon ID = [id number] for Laura goetz Francesco B-TYPE NATRIURETIC FACTOR (BNP)2022-01-29 00:09:07 Test Item Value Reference Range Interpretation Comments B-TYPE NATRIURETIC PEPTIDE 1353 pg/mL 0-100 H (BEAKER) (test code = 700) Aligner Typewriter ID - LITOTROPONIN [id number] 00:07:49 Test Item Value Reference Range Interpretation [...] failure, acidosis, acute neurological disease, and persistent tachyarrhythmia.Aligner Typewriter ID - [id number]/[id number] 23:59:45 Test Item Value Reference Range Interpretation Comments PROTIME (BEAKER) (test 11.7 seconds 9.3-12.0 Final Information code = 759) (Auto Output) INR (BEAKER) (test 1.07 See_Comment Final Inf ormation code = 370) (Auto Output) [Automated mess age] The system Dennoo generated this result transmit geo reference range : <=5.90. The reference range was not used to interpret this result as normal/abnormal . PARTIAL THROMBOPLASTIN 31.0 seconds 23.0-35.0 Final Information TIME (ANA PAULA) (test (Auto Ou tput) code = 760) RECOMMENDED COUMADIN/WARFARIN INR THERAPY RANGESSTANDARD DOSE: 2.0 - 3.0 Includes: PROPHYLAXIS for venous thrombosis, systemic embolization; TREATMENT for venous thrombosis and/or pulmonary embolus.HIGH RISK: Target INR is 2.5-3.5 for patients with mechanical heart valves.T4, [id number] 20:18:48 Test Item Value Reference Range Interpretation Comments FREE T4 (ANA PAULA) (test code = 655) 1.10 ng/dL 0.90-1.80 Aligner Typewriter ID - [id number] 20:18:09 Test Item Value Reference Range Interpretation Comments THYROID STIMULATING HORMONE 0.720 uIU/mL 0.350-5.500 (MOEAKER) (test code = 772) Aligner Typewriter ID - [id number], CHEST, 1 VIEW, NON [id number] 19:32:00Reason for exam:->Baseline CXRShould this be performed at the bedside?->Yes [facility] 1945 Sex: MFINAL REPORT [...] MDReport Verified Date/Time: 01/28/2022 19:32:54 Reading Location: [address] Consult Reading Room MAGNESIUM 2022-01-28 18:56:55 Test Item Value Reference Range Interpretation Comments MAGNESIUM (BEAKER) (test code = 2.4 mg/dL 1.5-3.0 627) Aligner Typewriter ID - [id number] ID - [id number] ID - [id number] ID - [id number] FUNCTION [id number] 18:56:50 Test Item Value Reference Range Interpretation [...] (test code = 22 U/L 5-50 347) Aligner Typewriter ID - [id number] ID - [id number] ID - [id number] ID - [id number] ID - [id number] ID - [id number] ID - [id number] METABOLIC [id number] 18:55:44 Test Item Value Reference Range Interpretation [...] 697) EGFR (BEAKER) (test 41 mL/min/1.73 ESTIMA GEO GFR IS code = 1092) sq m NOT ACCURATE CREATININE CLEARANCE IN PREDICTING GLOMERULAR FILTRATION RATE . ESTIMATED GFR I S NOT APPLICABLE FOR DIALYSIS PATIEN TS. Aligner Typewriter ID - [id number] ID - [id number] ID - [id number] ID - [id number] ID - [id number] ID - [id number] ID - [id number] ID - [id number] ID - [id number] ID - [id number] 18:53:30 Test Item Value Reference Range Interpretation Comments PHOSPHORUS (BEAKER) (test code = 3.3 mg/dL 2.5-4.5 604) Aligner Typewriter ID - [id number] W/PLT COUNT & AUTO [id number] 18:45:32 Test Item Value Reference Range Interpretation [...] PERCENT (BEAKER) (test code = 2801) HEMOGLOBIN [id number] 18:45:10 Test Item Value Reference Range Interpretation Comments HEMOGLOBIN A1C (BEAKER) (test code = 6.2 % 4.3-6.1 H 368) Aligner Typewriter ID - [id number] Notes Date/Time Note Provider Source 2022-11-23 19:48:38-00:[address] [facility] OPERATIVE/PROCEDURE REPORT AYDEN VU FACILITY: [facility] Billing #: [id number] Room: [address] [place] [address] MR #: [id number] : 1945 DATE OF PROCEDURE: 11/23/2022 SURGEON: Jen Edouard MD PREOPERATIVE DIAGNOSIS: Left groin pseudoaneurys m. POSTOPERATIVE DIAGNOSIS: Left groin pseudoaneury sm. PROCEDURE: Left groin pseudoaneurysm repair usin g patch angioplasty, femoral endarterectomy, drainage of hematoma. INDICATIONS FOR PROCEDURE: Mr. Ayden Vu is a 77-year-old male, history of highly calcified arteries. He u nderwent another right lower extremity arteriogram using left radial approach. Postoperatively, this was all done thr ough a 6-Australian sheath. He did move around quite a bit and he developed a left groin pseudoaneurysm. He was he modynamically stable, but he did have ongoing transfusion requ irement, so we decided to take him to the operating room for re pair. He explained all the risks and benefits of the proc edure. He asked us to proceed. PROCEDURE IN DETAIL: The patient was taken to [facility] operating room, placed in supine position. After induction of general anesthesia, the patient was prepped and draped i n appropriate surgical fashion. An incision was made over the area of bruising, carried down through skin, subcutaneou s layers to the common femoral artery that was identified. There was evidence of bleeding here. Pressure was held, rapidly dis sected proximally and distally with proximal distal con trol. We then inspected the area of bleeding. We then had give n 1 mg/dL of heparin circulated approximately minutes and the n reapplied clamps and using 11 blade and arteriotomy extend ed with Wells scissors. We then carefully removed some plaque from this area and sent off an arterectomy specimen. We then br ought a patch, a bovine pericardial patch, and began sewing a p iece of that patch at surface of the artery using running 5-0 Prolene suture. Afterwards released all the clamps and w e saw good flow through here with a Doppler, and we were ab le to palpate a pulse. We also reinforced the suture line where required. We drained as much of the hematoma, some of the hem atoma was in the scrotum. We squeezed that out of there. We t hen irrigated the whole incision with antibiotic saline irriga tion. We applied FloSeal as well as Narda. Through a sep arate stab incision we brought a Heber drain secured in rebeka ce using a 2-0 nylon suture, and then secured that in place usi ng 2-0 nylon suture. We then began closing the wound. The elza p layers were closed using 2-0 Vicryl, superficial layers clos ed in 0 Vicryl. Skin was closed using 2-0 nylon. ITM/MODL /[id number] Electronically signed by: KAMINIJEN HORTON at 20 21-11-24 17:49:23.000 2022-11-22 17:18:19-00:[address] [facility] PROGRESS NOTE AYDEN VU FACILITY: [facility] Billing #: [id number] Room: [address] [place] [address] MR #: [id number] : 1945 PHYSICIAN: Libertad Canales MD ADMISSION DATE: 11/15/2022 DATE: 11/22/2022 SUBJECTIVE: The patient is seen, chart reviewed, seems to be doing okay, in no acute distress. Plan from card iovascular as noted, he is going to have a pseudoaneurysm repa ir on the . He is otherwise not in any distress. Hematoma o f the left groin swelling are about the same. PHYSICAL EXAMINATION: VITAL SIGNS: He is currently afebrile. Vital sig ns stable. Blood pressure is 112/88. HEENT: Atraumatic and normocephalic. ABDOMEN: Soft. EXTREMITIES: He has lower extremity edema and le ft groin hematoma with some bruising. Also some left hand swelling. LABORATORY DATA: White blood cell count is 10, H and H is 7.8 and 24.6. His creatinine is 1.44. IMPRESSION: This is a 77-year-old with periphera l vascular disease and a left groin hematoma secondary to p seudoaneurysm. Also great toe ulcers and osteomyelitis, improve d by vascular disease. PLAN: We will continue to monitor. AEH/MODL /[id number] Electronically signed by: LIBERTAD CANALES at 11-22 17:07:07.000 2022-11-21 16:08:58-00:[address] [facility] PROGRESS NOTE AYDEN VU FACILITY: [facility] Billing #: [id number] Room: [address] [place] [address] MR #: [id number] : 1945 PHYSICIAN: Libertad Canales MD ADMISSION DATE: 11/15/2022 DATE: 11/21/2022 SUBJECTIVE: The patient is seen, chart reviewed. He is transferred back to medical floor. No acute even ts overnight. Still some swelling in his groin without any kin d of distress. Plan has been noted. OBJECTIVE: VITAL SIGNS: He is afebrile. Vital si gns stable. Blood pressure 120/64. HEENT: Atraumatic, normocephalic. ABDOMEN: Soft. Groin was still a lot of edema an d swelling in the left groin with a hematoma secondary to pseu doaneurysm. LABORATORY STUDIES: White blood cell count of 10 . His creatinine is 1.4. IMPRESSION: This is a 77-year-old with multiple medical problems and history of peripheral vascular dise ase, great toe infection, as well as pseudoaneurysm in the groi n hematoma. PLAN: As noted agree. We will continue to manage conservatively. We will continue to follow. Jonathan carbajal definitely hold his Plavix and we will see how sonia garcia does. AEH/MODL /[id number] Electronically signed by: LIBERTAD CANALES at 11-21 15:42:37.000 2022-11-20 11:04:47-00:[address] [facility] CONSULTATION AYDEN VU FACILITY: [facility] Billing #: [id number] Room: [address] [place] [address] MR #: [id number] : 1945 DATE OF ADMISSION: 11/15/2022 DATE OF CONSULTATION: 11/20/2022 REQUESTING PHYSICIAN: CONE EXAMINER: Libertad Canales MD HISTORY OF PRESENT ILLNESS: The patient is a 77- year-old with multiple medical problems, got a history of balta nary artery disease, had a CABG, diabetes, hypertension, hyp erlipidemia, stroke, hypothyroidism. He does have a lot of lo wer extremity wound issues. He had apparently infected toe. He also recently had an arteriogram and now I was called in because he got a left groin hematoma after his arteriogram. He has also got lot of scrotal edema and swelling, a lot of that is just volume overloaded. PAST MEDICAL HISTORY: Coronary artery disease, d iabetes, hypertension, hyperlipidemia, peripheral vascula r disease, bilateral lower extremity wounds. PAST SURGICAL HISTORY: Coronary artery bypass gr aft, pacemaker. SOCIAL HISTORY: Negative tobacco. MEDICATIONS: Please see MAR. ALLERGIES: NO KNOWN DRUG ALLERGIES. REVIEW OF SYSTEMS: Difficult to obtain. He is here in the ICU. Posi tive for neuro. Negative for psych. Positive for respirat ory. Positive for GI. PHYSICAL EXAMINATION: GENERAL: Male, currently resting comfortably. VITAL SIGNS: He is afebrile. Vitals stable. Bloo d pressure is 110/64. HEENT: Atraumatic, normocephalic. ABDOMEN: Soft. : He has scrotal swelling. He has Otto cathet er in place. He has big groin hematoma. LABORATORY DATA: His laboratory studies include a hemoglobin, which is 7.8. His creatinine is 1.4. IMPRESSION: This is a 77-year-old, multiple medi mira problems with recent aortogram with postop scrotal swelli ng and hematoma. There is not really any surgical inter vention or any kind of indications. I think this needs to resol ve. It may take time, probably needs to hold up on the anti coagulation treatment for the time being. I would leave the Otto in place. We will go ahead and continue to elevate the scrotum, but a t this point I think this is going to take some time for it to resolve. We will follow. AEH/MODL /[id number] Electronically signed by: LIBERTAD CANALES at 11-20 10:22:07.000 2022-11-17 21:40:40-00:[address] [facility] OPERATIVE/PROCEDURE REPORT MIRELLA AYDEN FACILITY: [facility] Billing #: [id number] Room: [address] [place] [address] MR #: [id number] : 1945 DATE OF PROCEDURE: 11/17/2022 SURGEON: Jen Edouard MD PREOPERATIVE DIAGNOSIS: Severe peripheral vascul ar disease. POSTOPERATIVE DIAGNOSIS: Severe peripheral vascu lar disease. PROCEDURES: Aortogram with bilateral l ower extremity runoff. ANESTHESIA: Conscious sedation. ESTIMATED BLOOD LOSS: Minimal. COMPLICATIONS: None. INDICATIONS FOR THE PROCEDURE: Mr. Ayden Vu is a 77-year-old male with history of multiple medica l problems including severe peripheral vascular disease. He has a right-sided pedal lesion. Our plan is to proceed with a right lower extremity arteriogram. He was explained al l the risks and benefits of the procedure. He asked us to pr oceed. PROCEDURE IN DETAIL: The patient was taken to vt th lab, placed in supine position. After induction of conscious sedation anesthesia, the patient was prepped and draped i n appropriate surgical fashion. Ultrasound was used to visuali ze the left common femoral artery. Mini-Stick needle and Min i-Stick sheath were placed. Mini-Stick sheath was then upsized over a Bentson wire and a 6-Australian sheath. The Contra catheter was then reformed in the infrarenal aorta and an aortogra m was performed, which demonstrated normal aorta, norm al bilateral common iliac arteries, external iliac arteries, common femoral arteries. We then used a Contra catheter stiff a ngled Glidewire to go up and over the aortic bifurcati on, positioned the catheter in the right common femoral artery. I then shot a runoff injection on the right leg. This demonstr ated a normal right common femoral, SFA, profunda. The poplite al artery at P1, P2 is normal. P3 had a significant disease. The anterior tibial artery was occluded. TP trunk had a sever e stenosis and the peroneal artery had a severe stenosis in it, posterior tibial artery midway down had a severe stenosis in it. We then bolused the patient with 5000 units of heparin, began checking ACTs every 2 minutes to maintain ACT above 250 w ith incremental bolus of heparin as needed, passed stiff angled Glidewire down the right SFA, removed the Contra catheter, tara jennifer a 6-Australian sheath, placed 6-Australian destination sheath in th e right common femoral artery. We then used a Glidewire glide c atheter to gain access to the posterior tibial artery. We t jeniffer passed the ViperWire down, then withdrew the Contra cathete r and 6-Australian sheath and placed a 6-Australian destination sheath in the right common femoral artery. We then used a Glidewire glide catheter to gain access. We then went ahead and passed th e ViperWire down. We then brought down a 1.25 diamondback or bital atherectomy catheter, which we used to perform o rbital atherectomy of the PT and the TP trunk and the p opliteal artery. We then went ahead and angioplastied all of those. The PT and the TP trunk were angioplastied using a 3.5 mm balloon. The proximal TP trunk and the poplitea l artery were angioplastied using a 4 mm balloon and the P3 se gment angioplastied using a 5 mm balloon. We then deca nnulated the posterior tibial and cannulated the peroneal, pa ssed a ViperWire down, brought down a 1.25 Diamondback Orbital Atherectomy Catheter, which we used to perform o rbital atherectomy of the peroneal artery lesion. We th en angioplastied that using a 3 mm balloon, then sh ot a completion arteriogram, demonstrated improved flow. All cat heters and guidewire sheaths were then withdrawn. A ProGlid e device used to close the arteriotomy. The patient tolerated the procedure well, was taken to the recovery room in stable c ondition. ITM/MODL /[id number] Electronically signed by: JEN EDOUARD at 20 21-11-18 17:00:19.000 2022-11-16 17:36:52-00:[address] [facility] CONSULTATION AYDEN VU FACILITY: [facility] Billing #: [id number] Room: [address] [place] [address] MR #: [id number] : 1945 DATE OF ADMISSION: 11/15/2022 DATE OF CONSULTATION: 11/16/2022 REQUESTING PHYSICIAN: CONE EXAMINER: Jen Edouard MD REASON FOR CONSULTATION: Mr. Ayden Vu is a [age]-year-old male with history of multiple medical problems, who was admitted to the hospital. He is a 77-year-old ma le with a medical history relevant for diabetes, stroke, h ypertension, and blindness who is admitted with an infected r ight great toe ulcer. REVIEW OF SYSTEMS: No chest pain, shortness of breath, back pain, a bdominal pain, nausea, vomiting. All other review of systems ar e negative. PAST MEDICAL HISTORY: Significant for coronary a rtery disease, hypertension, diabetes, hyperlipidemia, stroke, blindness, hypothyroidism, second-degree AV block with PVD, chronic bilateral lower extremity wounds. PAST SURGICAL HISTORY: Significant for previous CABG, previous pacemaker placement. MEDICATIONS: Please see attached medication jessica rd. ALLERGIES: NO KNOWN DRUG ALLERGIES. PHYSICAL EXAMINATION: VITAL SIGNS: The patient is afebrile. Vital sign s stable. HEAD AND NECK: Pupils are equally round, react t o light and accommodation. Extraocular movements intact. CARDIOVASCULAR: Regular rate and rhythm. PULMONARY: Clear to auscultation. ABDOMEN: Soft, nontender, nontender. EXTREMITIES: Nonpalpable pedal pulses. He has mu ltiple ulcerations, more on his right than his left. IMPRESSION: Peripheral vascular disease. We will need to get an arterial Doppler. I do not see a current Dopp ler in the chart and then eventually he is going to most angel jones need an arteriogram or probably try to get the doppler d one tonight and proceed with an arteriogram tomorrow. MIKELM/MODL /[id number] Electronically signed by: JEN EDOUARD at 20 21-11-17 16:34:25.000
[2023-01-01] MEDS ORDERED: NA CHLORIDE 0.9% 250 ML ONE (12:43)
[2023-01-01] MEDS ORDERED: VANCOMYCIN 1 GM/VIAL ONE (12:43)
[2023-01-01] MEDS ORDERED: NA CHLORIDE 0.9% 500 ML ONE ×2 (12:43→14:14)
[2023-01-01] MEDS ORDERED: NA CHLORIDE 0.9% 100 ML ONE (12:44)
[2023-01-01] MEDS ORDERED: CEFEPIME 1 GM/VIAL ONE (12:44)
[2023-01-01 12:55] LABS: RBC Red Blood Cell Count 4.12 M/uL (4.33-5.43)
[2023-01-01 12:56] LABS: Absolute Lymphocytes (CBC) 0.6 K/uL (0.7-4.9); Hematocrit 36.1 % (39.6-49.0); Lymphocytes % 7.7 % (15.3-44.8); MCV 87.8 fL (80-100); MPV 7.9 fL (7.6-11.3)
--- NOTE | 2023-01-01 12:59 | RAD REPORT ---
EXAM DESCRIPTION: RAD - Chest Single View - 01/01/2023 12:51 pm CLINICAL HISTORY: CHEST PAIN COMPARISON: Chest Single View dated 06/17/2022; Chest Single View dated 01/26/2022; Chest Pa And Lat (2 Views) dated 09/26/2019; Chest Single View dated 02/22/2017 FINDINGS: Lines: None. Lungs: Diffuse prominence of the pulmonary interstitium. Pleural: Bilateral pleural effusions, likely mild to moderate on the right and small on the left. Cardiac: Cardiomegaly. Pacemaker. Mediastinum: Within normal limits. Bones: No acute fractures. Other: None IMPRESSION: Findings most likely representing pulmonary edema and bilateral effusions.
[2023-01-01 13:01] LABS: Protime INR 1.1
[2023-01-01 13:12] LABS: Specific Gravity 1.021 (1.005-1.030); Urine Bacteria None Seen /HPF (<20); Urine Bilirubin NEGATIVE (Negative); Urine Blood Negative (Negative); Urine Clarity Clear (Clear); Urine Color Yellow (Yellow); Urine Glucose NEGATIVE (Negative); Urine Mucus Slight /HPF (None Seen); Urine Protein 1+ (Negative); Urine RBC <5 /HPF (None Seen); Urine Urobilinogen Normal (Normal); Urine pH 5.5 (5.0-7.0)
[2023-01-01 13:15] LABS: Albumin 2.5 g/dL (3.4-5.0); Bilirubin Total 0.9 mg/dL (0.2-1.0); Potassium 4.3 mEq/L (3.5-5.1); Protein, Total 7.1 g/dL (6.4-8.2)
[2023-01-01 13:33] LABS: Blood Morphology Comment NOT SEEN (NOT SEEN); Platelet Estimate ADEQ; Platelets, Giant FEW; White Blood Cell Scan OK (OK)
[2023-01-01 14:02] LABS: SARS-CoV-2 Antigen Rapid Res Negative (Negative)
[2023-01-01] MEDS ORDERED: FENTANYL CITR 100 MCG/2 ML ONE (14:14)
--- NOTE | 2023-01-01 14:54 | RAD REPORT ---
EXAM DESCRIPTION: CTChest Abdomen Pelvis W Cont - 01/01/2023 2:33 pm CLINICAL HISTORY: ABD PAIN COMPARISON: No comparisonsNo comparisons TECHNIQUE: CT of the chest, abdomen, and pelvis was performed. All CT scans are performed using dose optimization technique as appropriate and may include automated exposure control or mA/KV adjustment according to patient size. FINDINGS: Thorax: Chest Wall: No abnormal mass Lungs: Atelectasis as result of the effusions. Pleura: Moderate to large right and moderate left pleural effusion. Leeanna/Mediastinum: No lymphadenopathy. Aorta/Pulmonary Arteries: Unremarkable Heart: Cardiomegaly. Pacemaker. Coronary artery calcifications. Aortic valve prosthesis . . Abdomen/Pelvis: Liver: No acute abnormality or suspicious lesions. Biliary: Nonspecific distended gallbladder. Stomach: No significant focal abnormality. Duodenum: No significant focal abnormality. Pancreas: No significant abnormality. Spleen: No significant abnormality. Adrenal: No suspicious lesions. Kidney/ureter: No hydronephrosis. No renal calculi. Retroperitoneum: No retroperitoneal adenopathy. Vascular: No aneurysm. Atherosclerosis . Bowel: No significant focal abnormality. Peritoneum: Mild ascites. Bladder: Grossly unremarkable. Reproductive: No adnexal masses. Bones: No acute fracture. Multilevel degenerative changes are present in the spine. Other: Body wall edema. IMPRESSION: 1. Anasarca including moderate to large right and moderate left pleural effusion, mild a scites, and body wall edema. Atelectasis in the lungs as a result of the effusions. 2. Nonspecific gallbladder distention. This could reflect gallbladder hydrops.
--- NOTE | 2023-01-01 16:24 | ER ---
Nurse's Notes [facility] Name: Phi Cunningham Jr Age: 77 yrs Sex: Male : 1945 Arrival Date: 01/01/2023 Time: 12:20 Bed 7 Private MD: Diagnosis: Encephalopathy, unspecified;Dyspnea;Gangrene, not elsewhere classified Presentation: 01/01 12:28 Chief complaint: EMS states: pt was recently transferred to [facility] from a rehab in [address] [facility] called today for a fever, tylenol given at 11am. Coronavirus screen: At this time, the client does not indicate any symptoms associated with coronavirus-19. Ebola Screen: No symptoms or risks identified at this time. Initial Sepsis Screen: Does the patient meet any 2 criteria? Temp <36.0*C (96.8*F)) or > 38.3*C (100.9*F). Altered Mental Status. HR > 90 bpm. Does the patient have a suspected source of infection? No. Patient's initial sepsis screen is negative. Risk Assessment: Do you want to hurt yourself or someone else? Patient reports no desire to harm self or others. Onset of symptoms was January 01, 2023. 12:28 Method Of Arrival: EMS: [place] [id number] 12:28 Acuity: [facility]UL [facility] Triage Assessment: 12:29 General: Appears in no apparent distress. comfortable, ill, unkempt, Behavior is calm, kc6 cooperative, appropriate for age. Pain: Unable to use pain scale. Patient is disoriented. EENT: No signs and/or symptoms were reported regarding the EENT system. Neuro: Rodriguez Agitation-Sedation Scale (RASS): 0 - Alert and Calm Level of Consciousness is awake, obeys commands, Oriented to person. Cardiovascular: Capillary refill < 3 seconds Rhythm is atrial pacer. Respiratory: Airway is patent Trachea midline Respiratory effort is even, unlabored, Respiratory pattern is regular, symmetrical. GI: No signs and/or symptoms were reported involving the gastrointestinal system. : No signs and/or symptoms were reported regarding the genitourinary system. Derm: Wound noted right foot and left foot Decubitus located on sacrum, KERVIN lower extremities and groin area. Musculoskeletal: No signs and/or symptoms reported regarding the musculoskeletal system. Circulation, motion, and sensation intact. Capillary refill < 3 seconds, Range of motion: intact in all extremities. Historical: - Allergies: 12:29 No Known Allergies; kc6 - PMHx: 12:29 Congestive heart failure; diabetes mellitus; kc6 - PSHx: 12:29 bypass; pacemaker; kc6 - Immunization history:: Adult Immunizations unknown. - Social history:: Smoking status: unknown. Screenin:[address] [facility] ED Fall Risk Assessment (Adult) History of falling in the last 3 months, kc6 including since admission No falls in past 3 months (0 pts) Confusion or Disorientation Yes (5 pts) Intoxicated or Sedated No (0 pts) Impaired Gait Yes (1 pt) Mobility Assist Device Used Yes (1 pt) Altered Elimination No (0 pt) Score/Fall Risk Level 3 or more points = High Risk Oriented to surroundings, Maintained a safe environment, Educated pt \T\ family on fall prevention, incl call for assistance when getting out of bed, Assessed \T\ reinforced patient's understanding of fall precautions, Provided non-skid footwear, Used ambulatory aids as needed (educated on \T\ assisted with). Abuse screen: Denies threats or abuse. Denies injuries from another. Nutritional screening: No deficits noted. Tuberculosis screening: No symptoms or risk factors identified. Assessment: 12:32 Reassessment: please see triage assesment. kc6 13:47 Reassessment: Patient appears in no apparent distress at this time. No changes from kc6 previously documented assessment. Patient and/or family updated on plan of care and expected duration. Pain level reassessed. Patient is alert, oriented x 3, equal unlabored respirations, skin warm/dry/pink. 15:11 Reassessment: Patient appears in no apparent distress at this time. No changes from ld1 previously documented assessment. 15:32 Reassessment: Patient appears in no apparent distress at this time. No changes from ld1 previously documented assessment. ERP at bedside discussing possible care for patient with family. Vital Signs: 12:28 BP 107 / 86; Pulse 105; Resp 18 S; Temp 97.8(O); Pulse Ox 100% on 4 lpm NC; Weight 56.5 kc6 kg; Height 5 ft. 6 in. ; Pain 0/10; 12:59 BP 126 / 81; Pulse 102; Resp 18; Pulse Ox 99% on R/A; Pain 0/10; ld1 13:47 BP 90 / 75; Pulse 94; Resp 17 S; Pulse Ox 99% on 4 lpm NC; kc6 15:11 BP 111 / 79; Pulse 95; Resp 18; Pulse Ox 97% on R/A; ld1 15:32 BP 111 / 79; Pulse 98; Resp 18; Pulse Ox 96% on R/A; ld1 16:16 BP 122 / 80; Pulse 102; Resp 18; Pulse Ox 98% on 4 lpm NC; ld1 17:16 BP 115 / 73; Pulse 99; Resp 18; Pulse Ox 98% on 4 lpm NC; ld1 12:28 Body Mass Index 20.10 (56.50 kg, 167.64 cm) kc6 12:28 Pain Scale: Adult kc6 12:59 Pain Scale: Adult ld1 ED Course: 12:23 Patient arrived in ED. eb 12:25 Dino Villanueva MD is Attending Physician. bs3 12:27 Alize Coffey RN is Primary Nurse. kc6 12:29 Triage completed. kc6 12:29 Arm band placed on. kc6 12:32 Patient has correct armband on for positive identification. Placed in gown. Bed in low kc6 position. Call light in reach. Side rails up X2. 12:47 Inserted saline lock: 20 gauge in right upper arm, using aseptic technique. Blood ld1 collected. 12:53 Chest Single View XRAY In Process Unspecified. EDMS 12:58 Blood Culture Adult (2) Sent. ld1 12:58 CMP Sent. ld1 12:58 Lactate w/ 2H reflex if indic. Sent. ld1 12:58 Protime (+inr) Sent. ld1 12:58 Ptt, Activated Sent. ld1 12:58 Urinalysis w/ reflexes Sent. ld1 12:59 No provider procedures requiring assistance completed. ld1 14:35 Chest Abdomen Pelvis W Cont In Process Unspecified. EDMS 15:10 Head of bed elevated. Elevated right left leg. Cleaned of incontinence. Linen changed. ld1 17:48 IV discontinued, intact, bleeding controlled, No redness/swelling at site. ld1 Administered Medications: 12:59 Drug: Cefepime IVPB 1 grams Route: IVPB; Rate: 200 ml/hr; Infused Over: 30 mins; Site: [facility] right [facility] arm; 13:51 Follow up: Response: No adverse reaction; IV Status: Completed infusion; IV Intake: kc6 100ml 12:59 Drug: NS 0.9% IV 500 ml Route: IV; Rate: bolus; Site: right upper arm; kc6 13:51 Follow up: Response: No adverse reaction; IV Status: Completed infusion; IV Intake: kc6 500ml 13:38 Drug: vancoMYCIN IVPB 1 grams Route: IVPB; Infused Over: 2 hrs; Site: right upper arm; ld1 14:10 Drug: fentaNYL (PF) IVP 25 mcg Route: IVP; Site: right upper arm; kc6 14:10 Drug: NS 0.9% IV 500 ml Route: IV; Rate: bolus; Site: right upper arm; kc6 Medication: 17:49 VIS not applicable for this client. ld1 Intake: 13:51 IV: 500ml; Total: 500ml. kc6 13:51 IV: 100ml; Total: 600ml. kc6 Outcome: 16:23 Discharge ordered by . bs3 17:48 [facility] to [facility]. ld1 17:48 Condition: unchanged 17:48 Discharge instructions given to patient, family, Instructed on discharge instructions, follow up and referral plans. Demonstrated understanding of instructions, follow-up care. 17:49 Patient left the ED. ld1 Signatures: Dispatcher [employer] EDMS Shoshana Gandhi Lauren RN RN ld1 Alize Coffey RN RN kc6 Dino Villanueva MD MD bs3
--- NOTE | 2023-01-01 16:24 | EDPHYS ---
Physician Documentation [facility] Name: Phi Cunningham Jr Age: 77 yrs Sex: Male : 1945 Arrival Date: 01/01/2023 Time: 12:20 Bed 7 Private MD: ED Physician Dino Vilalnueva HPI: 01/01 14:02 This 77 yrs old Male presents to ER via EMS with complaints of Altered Mental bs3 Status, Fever. 14:02 This 77 yrs old Male presents to ER via EMS with complaints of Altered Mental bs3 Status, Fever. 14:02 77yo hx of chf, dm, pad, gangrene bibems for fever, weakness, ams. Pt is DNR, but hx is bs3 limited 2/2 mental status. . 16:15 [facility] reportedly [facility] outside [facility] ago and bs3 they sent him here because he developed a fever per EMS he was febrile to 103 they gave him Tylenol and brought him in. Historical: - Allergies: 12:29 No Known Allergies; kc6 - PMHx: 12:29 Congestive heart failure; diabetes mellitus; kc6 - PSHx: 12:29 bypass; pacemaker; kc6 - Immunization history:: Adult Immunizations unknown. - Social history:: Smoking status: unknown. ROS: 16:15 Constitutional: Pt unable to answer questions but staets pain all over bs3 16:15 Unable to obtain ROS due to baseline dementia, comatose state. Exam: 16:15 Constitutional: Patient appears older than stated age she appears cachectic and frail bs3 he appears to be in the process of dying Head/Face: Normocephalic, atraumatic. 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 6 in. ; Pain 0/10; 12:59 BP 126 / 81; Pulse 102; Resp 18; Pulse Ox 99% on R/A; Pain 0/10; ld1 13:47 BP 90 / 75; Pulse 94; Resp 17 S; Pulse Ox 99% on 4 lpm NC; kc6 15:11 BP 111 / 79; Pulse 95; Resp 18; Pulse Ox 97% on R/A; ld1 15:32 BP 111 / 79; Pulse 98; Resp 18; Pulse Ox 96% on R/A; ld1 16:16 BP 122 / 80; Pulse 102; Resp 18; Pulse Ox 98% on 4 lpm NC; ld1 17:16 BP 115 / 73; Pulse 99; Resp 18; Pulse Ox 98% on 4 lpm NC; ld1 12:28 Body Mass Index 20.10 (56.50 kg, 167.64 cm) kc6 12:28 Pain Scale: Adult kc6 12:59 Pain Scale: Adult ld1 MDM: 12:23 Patient medically screened. bs3 16:15 Data reviewed: vital signs, nurses notes. ED course: Patient brought in for altered bs3 mental status and fever he appears chronically ill and appears to be in the process of dying a is noted that he is DNR however I do not know full wishes therefore I initiated a sepsis evaluation his initial work-up came back inconclusive except for possible pleural effusions therefore I did a CT of his chest and abdomen I called the brother his proxy multiple times and eventually stated that he would come in. His work-up was notable for large bilateral pleural effusions at a conversation with his brother at bedside for approximately 35 minutes he noted that the patient is likely suffering and he understands that he is in the dying process the patient has expressed to him that he does not want aggressive measures we discussed the idea of hospice which the patient's brother stated is exactly what he would want at this point in time although slightly hesitant about morphine because there is a family member who has a drug problem I discussed at length and they agreed that this would be the best course of action as the patient does not want to be hospitalized and wants to be comfortable I called [facility] who I was able to arrange hospice with a reach out to hospice provider who will speak to the brother and set everything up will discharge back to [facility] the patient would not benefit from inpatient admission at this point in time as these go against his wishes antibiotics and IV fluids would only prolong the dying process. 01/01 12:33 Order name: Blood Culture Adult (2) bs3 01/01 12:33 Order name: CBC with Diff; Complete Time: 13:55 bs3 01/01 12:33 Order name: CMP; Complete Time: 13:55 bs3 01/01 12:33 Order name: Lactate w/ 2H reflex if indic.; Complete Time: 13:55 bs3 01/01 12:33 Order name: Protime (+inr); Complete Time: 13:02 bs3 01/01 12:33 Order name: Ptt, Activated; Complete Time: 13:02 bs3 01/01 12:33 Order name: Urinalysis w/ reflexes; Complete Time: 13:55 bs3 01/01 13:03 Order name: Influenza Screen (a \T\ B); Complete Time: 13:55 bs3 01/01 13:03 Order name: SARS-COV-2 Antigen Rapid; Complete Time: 14:33 bs3 01/01 13:33 Order name: CBC Smear Scan; Complete Time: 13:55 EDMS 01/01 12:33 Order name: Chest Single View XRAY; Complete Time: 13:02 bs3 01/01 14:15 Order name: Chest Abdomen Pelvis W Cont; Complete Time: 15:06 EDMS 01/01 12:33 Order name: EKG; Complete Time: 12:33 bs3 01/01 12:33 Order name: Accucheck; Complete Time: 12:58 bs3 01/01 12:33 Order name: Cardiac monitoring; Complete Time: 12:33 bs3 01/01 12:33 Order name: EKG - Nurse/Tech; Complete Time: 12:58 bs3 01/01 12:33 Order name: IV Saline Lock - Large Bore; Complete Time: 12:45 bs3 01/01 12:33 Order name: Labs collected and sent; Complete Time: 12:45 bs3 01/01 12:33 Order name: O2 Per Protocol; Complete Time: 12:33 bs3 01/01 12:33 Order name: O2 Sat Monitoring; Complete Time: 12:33 bs3 01/01 12:33 Order name: Vital Signs; Complete Time: 12:33 bs3 Administered Medications: 12:59 Drug: Cefepime IVPB 1 grams Route: IVPB; Rate: 200 ml/hr; Infused Over: 30 mins; Site: kc6 right upper arm; 13:51 Follow up: Response: No adverse reaction; IV Status: Completed infusion; IV Intake: kc6 100ml 12:59 Drug: NS 0.9% IV 500 ml Route: IV; Rate: bolus; Site: right upper arm; kc6 13:51 Follow up: Response: No adverse reaction; IV Status: Completed infusion; IV Intake: kc6 500ml 13:38 Drug: vancoMYCIN IVPB 1 grams Route: IVPB; Infused Over: 2 hrs; Site: right upper arm; ld1 14:10 Drug: fentaNYL (PF) IVP 25 mcg Route: IVP; Site: right upper arm; kc6 14:10 Drug: NS 0.9% IV 500 ml Route: IV; Rate: bolus; Site: right upper arm; kc6 Disposition Summary: 01/01/23 16:23 Discharge Ordered Location: Home bs3 Problem: new bs3 Symptoms: are unchanged bs3 Condition: Critical bs3 Diagnosis - Encephalopathy, unspecified bs3 - Dyspnea bs3 - Gangrene, not elsewhere classified bs3 Followup: bs3 - With: Private Physician - When: 1 - 2 days - Reason: Re-evaluation by your physician Discharge Instructions: - Discharge Summary Sheet bs3 - Gangrene bs3 - Hospice bs3 Forms: - Medication Reconciliation Form bs3 - Thank You Letter bs3 - Antibiotic Education bs3 - Prescription Opioid Use bs3 Signatures: Dispatcher [employer] EDAn Davis RN RN ld1 Alize Coffey RN RN kc6 Dino Villanueva MD MD bs3 Corrections: (The following items were deleted from the chart) 14:14 13:57 Thorax Wo Con+CT.RAD.BRZ ordered. EDMS EDMS 14:15 13:57 Abdomen Pelvis W Con+CT.RAD.BRZ ordered. EDMS EDMS
[2023-01-01 18:26] VITALS: TEMP 97.8
[2023-01-01 18:36] VITALS: O2SAT 98
[2023-01-01 18:37] VITALS: BP 115/73
--- NOTE | 2023-01-02 14:18 | EKG ---
Test Date: 2023-01-01 Test Time: 12:57:22 Vp Product Marketing: MONALISA MEASUREMENT RESULTS: Intervals: Rate: 102 MA: 152 QRSD: 150 QT: 420 QTc: 547 [place]: P: 35 MA: 152 QRS: 170 T: -1 INTERPRETIVE STATEMENTS: Atrial-sensed ventricular-paced rhythm Abnormal ECG Compared to ECG 11/15/2022 18:33:30 Sinus tachycardia no longer present Uncertain supraventricular rhythm no longer present Ventricular premature complex(es) no longer present AV block, complete (third-degree) no longer present Left-axis deviation no longer present Myocardial infarct finding no longer present Electronically Signed On 01-02-23 14:17:06 CDT by Jayden Jones
== END 2023-01-01 17:49 | disposition home or self-care (01) ==
LOC: ER 12:20
DX: G93.40 Encephalopathy, unspecified (principal); E11.52 Type 2 diabetes mellitus with diabetic peripheral angiopathy with gangrene; I96 Gangrene, not elsewhere classified; R06.00 Dyspnea, unspecified; I50.9 Heart failure, unspecified; Z95.0 Presence of cardiac pacemaker; F03.90 Unspecified dementia, unspecified severity, without behavioral disturbance, psychotic disturbance, mood disturbance, and anxiety; Z20.822 Contact with and (suspected) exposure to COVID-19
CPT/HCPCS: 96365; 93005; 87040 ×2; 85025; 81001; 36415; 85610; 83605; 85730; 80053; 87804 ×2; 71260; 74177; 71045; 96375; 99285; 87811; Q9967; J3010; J7050; J7040 ×2; J0692